=== PATIENT | female | born 1930 | race Caucasian/White ===

== ENCOUNTER 2018-09-08 06:04 | Emergency (ER) | payer OTHER ==
--- OUTSIDE RECORDS SUMMARY | 2018-09-08 06:10 | XMS REPORT | Clinical Summary ---
:1930 Author Organization [facility] Address [address] [place] [address] Care Team Providers Name Role Phone Anthony Estrella Primary Care Provider Allergies Active Allergy Reactions Severity Noted Date Comments Allopurinol Analogues 05/26/2018 Ciprofloxacin 05/25/2018 Propoxyphene N-Acetaminophen 05/25/2018 Zvqluibkkct-Sidyavfi-Ljafvryod 05/25/2018 Levofloxacin 05/25/2018 Penicillins Rash Low 05/25/2018 Medications Medication Sig Dispensed Refills Start End Date Status Date atorvastatin Take 20 mg by 0 Active (LIPITOR) 20 MG mouth nightly. tablet donepezil (ARICEPT) Take 10 mg by 0 Active 10 MG tablet mouth nightly. cycloSPORINE Place 1 drop into 0 Active (RESTASIS) 0.05 % both eyes 2 (two) ophthalmic emulsion times daily. febuxostat 40 mg Take 40 mg by 0 Active tablet mouth daily. pantoprazole Take 40 mg by 0 Active (PROTONIX) 40 MG mouth daily. tablet cholecalciferol, Take 5,000 Units 0 Active vitamin D3, 5,000 by mouth daily. unit Tab sucralfate Take 1 g by mouth 0 Active (CARAFATE) 1 gram 3 (three) times tablet daily. levothyroxine Take 50 mcg by 0 Active (SYNTHROID, mouth Every LEVOTHROID) 50 MCG morning on an tablet empty stomach. acetaminophen Take 650 mg by 0 Active (TYLENOL) 325 MG mouth every 8 tablet (eight) hours as needed for Pain. apixaban (ELIQUIS Take 2.5 mg by 0 Active ORAL) mouth 2 (two) times daily. escitalopram oxalate Take 20 mg by 0 Active (LEXAPRO) 20 MG mouth nightly. tablet ferrous sulfate 325 Take 325 mg by 0 Active (65 FE) MG tablet mouth 3 (three) times daily with meals. acetaminophen-codein Take 1 tablet by 0 Active e (TYLENOL #3) mouth as needed 300-30 mg per tablet for Pain. aztreonam (AZACTAM) Inject 1 g 0 Active IVPB in 100 mL intravenously 8 every 8 (eight) hours. dicyclomine (BENTYL) Take 20 mg by 0 05/28/20 Discontinued 20 mg tablet mouth 3 (three) 18 times daily. ondansetron (ZOFRAN) Take 4 mg by 0 05/28/20 Discontinued 4 MG tablet mouth 4 (four) 18 times daily as needed for Nausea. loperamide (IMODIUM) Take 2 mg by 0 05/28/20 Discontinued 2 mg capsule mouth as needed 18 for Diarrhea. diphenhydrAMINE Take 25 mg by 0 05/28/20 Discontinued (BENADRYL) 25 mg mouth as needed 18 tablet for Sleep. diphenoxylate-atropi Take 1 tablet by 0 05/28/20 Discontinued ne (LOMOTIL) mouth as needed 18 2.5-0.025 mg per for Diarrhea. tablet traMADol (ULTRAM) 50 Take 1 tablet (50 30 tablet 0 06/07/20 mg tablet mg total) by 8 18 mouth every 6 (six) hours as needed for up to 10 days. Max Daily Amount: 200 mg Active Problems Problem Noted Date Hydronephrosis 05/25/2018 Kidney stone 05/25/2018 Acute renal failure (ARF) 05/25/2018 Encounters Date Type Specialty Care Team Description 05/25/2018 - Hospital Encounter General Internal Carmencita Crockett Acute renal failure, unspecified acute renal failure type (HCC); 05/28/2018 Medicine MD Trevor Kidney stone 05/25/2018 Orders Only Jaycob Andrade RN after 09/07/2017 Social History Tobacco Use Types Packs/Day Years Used Date Never Assessed Sex Assigned at Date Recorded Not on file Job Start Date Occupation Industry Not on file Not on file Not on file Travel History Travel Start Travel End No recent travel history available. Last Filed Vital Signs Vital Sign Reading Time Taken Blood Pressure 112/56 05/28/2018 3:52 PM CDT Pulse 68 05/28/2018 3:52 PM CDT Temperature 36.2 C (97.2 F) 05/28/2018 3:52 PM CDT Respiratory Rate 05/28/2018 3:52 PM CDT Oxygen Saturation 93% 05/28/2018 3:52 PM CDT Inhaled Oxygen Concentration - - Weight 81.5 kg (179 lb 9.6 oz) 05/25/2018 11:00 PM CDT Height - - Body Mass Index - - Plan of Treatment Not on file Procedures Procedure Name Priority Date/Time Associated Comments Diagnosis RHYTHM STRIP - SCAN 05/31/2018 2:55 PM CDT TRANSFUSION SERVICE 05/28/2018 5:54 REPORT - SCAN PM CDT XR CHEST 1 VIEW Routine 05/28/2018 9:35 Results for this PORTABLE/BEDSIDE AM CDT procedure are in the results section. CBC W/PLT COUNT & AUTO Routine 05/28/2018 5:36 Results for this DIFFERENTIAL AM CDT procedure are in the results section. COMPREHENSIVE Routine 05/28/2018 5:36 Results for this METABOLIC PANEL AM CDT procedure are in the results section. CBC W/PLT COUNT & AUTO Routine 05/28/2018 5:36 Results for this DIFFERENTIAL AM CDT procedure are in the results section. PHOSPHORUS Routine 05/28/2018 5:36 Results for this AM CDT procedure are in the results section. MAGNESIUM Routine 05/28/2018 5:36 Results for this AM CDT procedure are in the results section. PT/APTT Routine 05/28/2018 5:36 Results for this AM CDT procedure are in the results section. PREPARE PLASMA Routine 05/27/2018 11:54 Results for this PM CDT procedure are in the results section. TRANSFUSION SERVICE 05/27/2018 5:55 REPORT - SCAN PM CDT CBC W/PLT COUNT & AUTO Routine 05/27/2018 4:55 Results for this DIFFERENTIAL AM CDT procedure are in the results section. COMPREHENSIVE Routine 05/27/2018 4:55 Results for this METABOLIC PANEL AM CDT procedure are in the results section. CBC W/PLT COUNT & AUTO Routine 05/27/2018 4:55 Results for this DIFFERENTIAL AM CDT procedure are in the results section. PHOSPHORUS Routine 05/27/2018 4:55 Results for this AM CDT procedure are in the results section. MAGNESIUM Routine 05/27/2018 4:55 Results for this AM CDT procedure are in the results section. PROTHROMBIN TIME/INR Routine 05/27/2018 4:55 Results for this AM CDT procedure are in the results section. PT/APTT Routine 05/27/2018 4:55 Results for this AM CDT procedure are in the results section. OCCULT BLOOD, STOOL Routine 05/26/2018 6:02 Results for this PM CDT procedure are in the results section. PROTHROMBIN TIME/INR Routine 05/26/2018 4:23 Results for this PM CDT procedure are in the results section. TRANSFUSE PLASMA Routine 05/26/2018 9:14 AM CDT TROPONIN I Routine 05/26/2018 3:53 Results for this AM CDT procedure are in the results section. CBC W/PLT COUNT & AUTO Routine 05/26/2018 3:18 Results for this DIFFERENTIAL AM CDT procedure are in the results section. TYPE AND SCREEN STAT 05/26/2018 3:18 Results for this AM CDT procedure are in the results section. B-TYPE NATRIURETIC Routine 05/26/2018 3:18 Results for this FACTOR (BNP) AM CDT procedure are in the results section. CBC W/PLT COUNT & AUTO Routine 05/26/2018 3:18 Results for this DIFFERENTIAL AM CDT procedure are in the results section. URINALYSIS W/ Routine 05/26/2018 1:50 Results for this MICROSCOPIC AM CDT procedure are in the results section. PHOSPHORUS Routine 05/26/2018 1:48 Results for this AM CDT procedure are in the results section. MAGNESIUM Routine 05/26/2018 1:48 Results for this AM CDT procedure are in the results section. PT/APTT Routine 05/26/2018 1:48 Results for this AM CDT procedure are in the results section. BASIC METABOLIC PANEL Routine 05/26/2018 1:48 Results for this (7) AM CDT procedure are in the results section. URINE CULTURE Routine 05/26/2018 1:08 Results for this AM CDT procedure are in the results section. after 09/07/2017 Results RHYTHM STRIP - SCAN (05/31/2018 2:55 PM CDT) Narrative Performed At TRANSFUSION SERVICE REPORT - SCAN (05/28/2018 5:54 PM CDT)Only the most recent of2 resultswithin the time period is included. Narrative Performed At XR chest 1 view portable / bedside (05/28/2018 9:35 AM CDT) Narrative Performed At FINAL REPORT [facility] Comparison: 03/31/2014 TECHNIQUE: Single view of the chest FINDINGS: Lung volumes are low. Bibasilar densities may represent atelectasis. No gross new lung parenchymal changes. Cardiac silhouette is magnified by technique. Left-sided pacing device again noted. Signed: Luciana Squires MD Report Verified Date/Time:05/28/2018 12:17:09 Reading Location: [facility] Radiology Reading Room Procedure Note Interface, External Ris In - 05/28/2018 12:19 PM CDT FINAL REPORT Comparison: 03/31/2014 TECHNIQUE: Single view of the chest FINDINGS: Lung volumes are low. Bibasilar densities may represent atelectasis. No gross new lung parenchymal changes. Cardiac silhouette is magnified by technique. Left-sided pacing device again noted. Signed: Luciana Squires MD Report Verified Date/Time: 05/28/2018 12:17:09 Reading Location: [facility] Radiology Reading Room Performing Organization Address City/[facility]/Zipcode Phone Number RIS PT/aPTT (05/28/2018 5:36 AM CDT)Only the most recent of3 resultswithin the time period is included. Protime 13.2 (H) 9.3 - 12.0 sec [facility] INR 1.2 <=5.9 [facility] PTT 37.0 (H) 23.0 - 35.0 sec [facility] Specimen Blood Narrative Performed At [facility] RECOMMENDED COUMADIN/WARFARIN INR THERAPY RANGES STANDARD DOSE: 2.0 - 3.0 Includes: PROPHYLAXIS for venous thrombosis, systemic embolization; TREATMENT for venous thrombosis and/or pulmonary embolus. HIGH RISK: Target INR is 2.5-3.5 for patients with mechanical heart valves. Final Information (Auto Output) Final Information (Auto Output) Final Information (Auto Output) Performing Organization Address City/[facility]/Zipcode Phone Number [facility] [address], [place] [phone] CBC with platelet count + automated diff (05/28/2018 5:36 AM CDT)Only the most recent of3 resultswithin the time period is included. WBC 8.0 4.0 - 10.0 K/L [facility] RBC 3.56 (L) 4.00 - 5.00 M/L [facility] Hemoglobin 11.5 (L) 12.0 - 15.0 GM/DL [facility] Hematocrit 34.5 (L) 36.0 - 45.0 % [facility] MCV 96.8 82.0 - 99.0 fL [facility] MCH 32.2 27.0 - 33.0 pg [facility] MCHC 33.3 32.0 - 36.0 GM/DL [facility] RDW 14.6 (H) 10.3 - 14.2 % [facility] Platelets 103 (L) 150 - 430 K/CU MM [facility] MPV 11.0 (H) 6.5 - 10.5 fL [facility] nRBC 0 0 - 0 /100 WBC [facility] % Neutros 70 % [facility] % Lymphs 15 % [facility] % Monos 12 % [facility] % Eos 2 % [facility] % Baso 1 % [facility] # Neutros 5.60 1.80 - 8.00 K/L [facility] # Lymphs 1.20 (L) 1.48 - 4.50 K/L [facility] # Monos 1.00 0.00 - 1.30 K/L [facility] # Eos 0.20 0.00 - 0.50 K/L [facility] # Baso 0.00 0.00 - 0.20 K/L [facility] Specimen Blood Performing Organization Address City/State/Zipcode Phone Number [facility] [address] [place] [address] [phone] Phosphorus (05/28/2018 5:36 AM CDT)Only the most recent of3 resultswithin the time period is included. Phosphorus 1.7 (L) 2.5 - 4.5 mg/dL [facility] Specimen Blood Performing Organization Address City/[facility]/Zipcode Phone Number [facility] [address], [place] [address] [phone] Magnesium (05/28/2018 5:36 AM CDT)Only the most recent of3 resultswithin the time period is included. Magnesium 1.3 (L) 1.5 - 3.0 mg/dL [facility] Specimen Blood Performing Organization Address [facility] Phone Number [facility] [address], [place] [address] [phone] Comprehensive metabolic panel (05/28/2018 5:36 AM CDT)Only the most recent of2 resultswithin the time period is included. Protein, Total 4.8 (L) 6.0 - 8.5 gm/dL [facility] Albumin 2.5 (L) 3.5 - 5.0 g/dL [facility] Alkaline Phosphatase 129 (H) 30 - 115 U/L [facility] Total Bilirubin 0.5 0.1 - 1.2 mg/dL [facility] Sodium 144 135 - 148 meq/L [facility] Potassium 3.3 (L) 3.6 - 5.5 meq/L [facility] Chloride 120 (H) 98 - 106 meq/L [facility] CO2 16 (L) 20 - 29 meq/L [facility] BUN 26 10 - 26 mg/dL [facility] Creatinine 0.97 0.50 - 1.20 mg/dL [facility] Glucose 98 70 - 110 mg/dL [facility] Calcium 9.6 8.5 - 10.5 mg/dL [facility] AST 27 5 - 40 U/L [facility] ALT 33 5 - 50 U/L [facility] EGFR 54Comment: ESTIMATED GFR mL/min/1.73 sq m [facility] IS NOT ACCURATE CREATININE CLEARANCE IN PREDICTING GLOMERULAR FILTRATION RATE. ESTIMATED GFR IS NOT APPLICABLE FOR DIALYSIS PATIENTS. Specimen Blood Performing Organization Address [facility] Phone Number [facility] [address], [place] [phone] Prepare plasma (05/27/2018 11:54 PM CDT) Unit ABO A Pos [place] UNIT NUMBER [id number] [place] Status TRANSFUSED [place] Blood Bank Product FFP [place] PRODUCT CODE [id number] [place] Specimen Blood Performing Organization Address City/[facility]ode Phone Number [facility] [place] Prothrombin time/INR (05/27/2018 4:55 AM CDT)Only the most recent of2 resultswithin the time period is included. Protime 20.5 (H) 9.3 - 12.0 seconds [facility] INR 1.9 <=5.9 [facility] Specimen Blood Narrative Performed At [facility] RECOMMENDED COUMADIN/WARFARIN INR THERAPY RANGES STANDARD DOSE: 2.0 - 3.0 Includes: PROPHYLAXIS for venous thrombosis, systemic embolization; TREATMENT for venous thrombosis and/or pulmonary embolus. HIGH RISK: Target INR is 2.5-3.5 for patients with mechanical heart valves. Performing Organization Address City/[facility] Phone Number [facility] [address] [place] [address] [phone] Occult blood, stool (05/26/2018 6:02 PM CDT) Occult blood Positive (A) Negative [facility] Specimen Stool - Per Rectum Performing Organization Address [facility]Former[facility] Number [address] [phone] Transfuse plasma (05/26/2018 9:14 AM CDT)Only the most recent of2 resultswithin the time period is included.Troponin I (05/26/2018 3:53 AM CDT) Troponin I 0.23 (HH) 0.00 - 0.15 ng/mL [facility] Specimen Blood - Line, Venous Narrative Performed At [facility] Troponin I (TnI) levels must be interpreted in the context of the presenting symptoms and the clinical findings. Elevated TnI levels indicate myocardial damage, but are not specific for ischemic heart disease. Elevated TnI levels are seen in patients with other cardiac conditions (including myocarditis and congestive heart failure), and slight TnI elevations occur in patients with other conditions, including sepsis, renal failure, acidosis, acute neurological disease, and persistent tachyarrhythmia. Performing Organization Address [facility] Phone Number [facility] [address], [place] [phone] Type and screen (05/26/2018 3:18 AM CDT) Ab Scrn NEGATIVE [facility] ABO Grouping A [facility] Rh Factor POS [facility] Specimen Blood - Line, Venous Performing Organization Address City/[facility] Phone Number [facility] [address] [place], [place] [phone] [facility] B-type Natriuretic Factor (BNP) (05/26/2018 3:18 AM CDT) BNP 736 (H) 0 - 100 pg/mL [facility] Specimen Blood - Line, Venous Performing Organization Address [facility] Phone Number [facility] [address], [place] [address] [phone] Urinalysis w/ Microscopic (05/26/2018 1:50 AM CDT) Color, UA Yellow [facility] Clarity, UA Slightly Cloudy [facility] Specific [place], UA 1.015 1.001 - 1.035 [facility] pH, UA 8.0 5.0 - 8.0 [facility] Protein, UA 100 mg/dL (A) Negative [facility] Glucose, UA Negative Negative [facility] Ketones, UA Trace (A) Negative [facility] Bilirubin, UA Positive (A) Negative [facility] Blood, UA Large (A) Negative [facility] Nitrite, UA Positive (A) Negative [facility] Leukocytes, UA Large (A) Negative [facility] Urobilinogen, UA 1.0 0.2 - 1.0 mg/dL [facility] Bacteria, UA Many [facility] RBC, UA >100 /HPF [facility] WBC, UA 50-100 /HPF [facility] SQUAMOUS EPITHELIAL 5-10 /HPF [facility] Specimen Source [facility] Specimen Urine - Urine, Don Performing Organization Address [facility] Phone Number [facility] [address], [place] [phone] Basic metabolic panel (05/26/2018 1:48 AM CDT) Sodium 145 135 - 148 meq/L [facility] Potassium 4.4Comment: Specimen moderately 3.6 - 5.5 meq/L [facility] hemolyzed Chloride 118 (H) 98 - 106 meq/L [facility] CO2 15 (L) 20 - 29 meq/L [facility] BUN 51 (H) 10 - 26 mg/dL [facility] Creatinine 1.37 (H)Comment: Specimen 0.50 - 1.20 mg/dL [facility] moderately hemolyzed Glucose 106 70 - 110 mg/dL [facility] Calcium 11.8 (H) 8.5 - 10.5 mg/dL [facility] EGFR 36Comment: ESTIMATED GFR IS NOT mL/min/1.73 sq m [facility] ACCURATE CREATININE CLEARANCE IN PREDICTING GLOMERULAR FILTRATION RATE. ESTIMATED GFR IS NOT APPLICABLE FOR DIALYSIS PATIENTS. Specimen Blood - Arm, Left Performing Organization Address [facility] Phone Number [facility] [address], [place] [phone] Urine culture (05/26/2018 1:08 AM CDT) Result (A) [facility] Specimen Urine - Urine, Clean Catch Organism Antibiotic Method Susceptibility Proteus mirabilis Ampicillin + Sulbactam <=2: Susceptible Proteus mirabilis Cefepime <=1: Susceptible Proteus mirabilis Cefoxitin <=4: Susceptible Proteus mirabilis Ceftriaxone <=1: Susceptible Proteus mirabilis Gentamicin <=1: Susceptible Proteus mirabilis Levofloxacin <=0.12: Susceptible Proteus mirabilis Meropenem 1: Susceptible Proteus mirabilis Nitrofurantoin 128: Resistant Proteus mirabilis Piperacillin + Tazobactam <=4: Susceptible Proteus mirabilis Tetracycline >=16: Resistant Proteus mirabilis Tobramycin <=1: Susceptible Proteus mirabilis Trimethoprim + Sulfamethoxazole <=20: Susceptible Performing Organization Address [facility] Phone Number [facility] [address], [place] [phone] after 09/07/2017 Insurance Payer Benefit Plan / Group Subscriber ID Type Phone Address MEDICARE MEDICARE A B xxxxxxxxxx Medicare MCR [employer] SENIOR SUPPLEMENTAL xxxxxxxxxx SUPPLEMENT/INDIVIDUAL (Home) [place] [address] Advance Directives Patient has advance care planning documents, and code status on file. For more information, please contact:[address] [phone] Code Status Date Activated Date Inactivated Comments Full Code 05/26/2018 12:08 AM 05/28/2018 9:10 PM This code status was determined by: Patient
--- OUTSIDE RECORDS SUMMARY | 2018-09-08 06:10 | XMS REPORT ---
:1930 Author Organization [facility] Address [address] [place] [address] [address] [place] [address] Care Team Providers Name Role Phone GAUDENCIO CONNELLY Unavailable Unavailable Problems This patient has no known problems. Allergies, Adverse Reactions, Alerts This patient has no known allergies or adverse reactions. Medications This patient has no known medications. Results Test Description Test Time Test Comments Text Results Atomic Results Result Comments URINE CULTURE 2018-05-29 08:41:00 Test Item Value Reference Range Comments CULTURE (BEAKER) (test jcud=5907) PROTEUS MIRABILIS >100,000 col/mL Proteus mirabilis Amikacin (test code=1) Ampicillin + Sulbactam (test code=6) Aztreonam (test code=32) Cefazolin (test code=9) Cefepime (test code=51) Cefoxitin (test code=68) Ceftazidime (test code=27) Ceftriaxone (test code=52) Ertapenem (test code=38) Gentamicin (test code=18) Levofloxacin (test code=22) Meropenem (test code=34) Nitrofurantoin (test code=23) Piperacillin + Tazobactam (test code=29) Tetracycline (test code=2) Tigecycline (test atmo=249) Tobramycin (test code=25) Trimethoprim + Sulfamethoxazole (test code=47) RAD, CHEST, 1 VIEW, NON [id number] 12:17:00Reason for exam:-> pneumoniaShould this be performed at the bedside?->YesFINAL REPORT Comparison: 03/31/2014 TECHNIQUE: Single view of the chest FINDINGS : Lung volumes are low. Bibasilar densities may represent atelectasis. No gross new lung parenchymal changes. Cardiac silhouette is magnified by technique. Left -sided pacing device again noted. Signed: Luciana Squires MDReport Verified Date/ Time: 05/28/2018 12:17:09 Reading Location: [facility] Radiology Reading Room COMPREHENSIVE METABOLIC [id number] 06:24:00 Test Item Value Reference Range Comments TOTAL PROTEIN (BEAKER) 4.8 gm/dL 6.0-8.5 (test fbvo=283) ALBUMIN (BEAKER) (test 2.5 g/dL 3.5-5.0 vbaf=3502) ALKALINE PHOSPHATASE 129 U/L 30-115 (BEAKER) (test loqj=422) BILIRUBIN TOTAL (BEAKER) 0.5 mg/dL 0.1-1.2 (test yasr=627) SODIUM (BEAKER) (test 144 meq/L 135-148 gtyn=274) POTASSIUM (BEAKER) (test 3.3 meq/L 3.6-5.5 vdrb=444) CHLORIDE (BEAKER) (test 120 meq/L 98-106 afer=743) CO2 (BEAKER) (test 16 meq/L 20-29 fijc=420) BLOOD UREA NITROGEN 26 mg/dL 10-26 (BEAKER) (test keeq=541) CREATININE (BEAKER) (test 0.97 mg/dL 0.50-1.20 yrew=216) GLUCOSE RANDOM (BEAKER) 98 mg/dL 70-110 (test vhvg=181) CALCIUM (BEAKER) (test 9.6 mg/dL 8.5-10.5 pays=041) AST (SGOT) (BEAKER) (test 27 U/L 5-40 pvre=453) ALT (SGPT) (BEAKER) (test 33 U/L 5-50 vora=369) EGFR (BEAKER) (test 54 mL/min/1.73 sq m ESTIMATED GFR IS NOT tndf=7525) ACCURATE CREATININE CLEARANCE IN PREDICTING GLOMERULAR FILTRATION RATE. ESTIMATED GFR IS NOT APPLICABLE FOR DIALYSIS PATIENTS. [id number] 06:15:00 Test Item Value Reference Range Comments PHOSPHORUS (BEAKER) (test kivm=143) 1.7 mg/dL 2.5-4.5 [id number] 06:10:00 Test Item Value Reference Range Comments MAGNESIUM (BEAKER) (test rien=683) 1.3 mg/dL 1.5-3.0 [id number] 06:00:00 Test Item Value Reference Range Comments PROTIME (BEAKER) (test hodz=987) 13.2 sec 9.3-12.0 INR (BEAKER) (test awsj=895) 1.2 <=5.9 PARTIAL THROMBOPLASTIN TIME (BEAKER) (test 37.0 sec 23.0-35.0 lify=037) RECOMMENDED COUMADIN/WARFARIN INR THERAPY RANGESSTANDARD DOSE: 2.0 - 3.0 Includes: PROPHYLAXIS forvenous thrombosis, systemic embolization; TREATMENT for venous thrombosis and/or pulmonary embolus.HIGH RISK: Target INR is 2.5-3.5 for patients with mechanical heart valves.Final Information (Auto Output)Final Information (Auto Output)Final Information (Auto Output)CBC W/PLT COUNT & AUTO [id number] 05:55:00 Test Item Value Reference Range Comments WHITE BLOOD CELL COUNT (BEAKER) (test ctxh=579) 8.0 K/ L 4.0-10.0 RED BLOOD CELL COUNT (BEAKER) (test bwbt=974) 3.56 M/ L 4.00-5.00 HEMOGLOBIN (BEAKER) (test dooy=542) 11.5 GM/DL 12.0-15.0 HEMATOCRIT (BEAKER) (test kbxl=942) 34.5 % 36.0-45.0 MEAN CORPUSCULAR VOLUME (BEAKER) (test tkml=539) 96.8 fL 82.0-99.0 MEAN CORPUSCULAR HEMOGLOBIN (BEAKER) (test 32.2 pg 27.0-33.0 liyo=134) MEAN CORPUSCULAR HEMOGLOBIN CONC (BEAKER) (test 33.3 GM/DL 32.0-36.0 jtwp=568) RED CELL DISTRIBUTION WIDTH (BEAKER) (test 14.6 % 10.3-14.2 ceyn=347) PLATELET COUNT (BEAKER) (test hgve=428) 103 K/CU MM 150-430 MEAN PLATELET VOLUME (BEAKER) (test qzpn=876) 11.0 fL 6.5-10.5 NUCLEATED RED BLOOD CELLS (BEAKER) (test 0 /100 WBC 0-0 dwkb=867) NEUTROPHILS RELATIVE PERCENT (BEAKER) (test 70 % aupo=948) LYMPHOCYTES RELATIVE PERCENT (BEAKER) (test 15 % zica=524) MONOCYTES RELATIVE PERCENT (BEAKER) (test 12 % pboj=095) EOSINOPHILS RELATIVE PERCENT (BEAKER) (test 2 % jtzh=191) BASOPHILS RELATIVE PERCENT (BEAKER) (test 1 % poxj=969) NEUTROPHILS ABSOLUTE COUNT (BEAKER) (test 5.60 K/ L 1.80-8.00 zdqx=461) LYMPHOCYTES ABSOLUTE COUNT (BEAKER) (test 1.20 K/ L 1.48-4.50 zwbk=640) MONOCYTES ABSOLUTE COUNT (BEAKER) (test 1.00 K/ L 0.00-1.30 jugz=000) EOSINOPHILS ABSOLUTE COUNT (BEAKER) (test 0.20 K/ L 0.00-0.50 ihiy=826) BASOPHILS ABSOLUTE COUNT (BEAKER) (test 0.00 K/ L 0.00-0.20 akow=198) [id number] 06:06:00 Test Item Value Reference Range Comments PHOSPHORUS (BEAKER) (test 1.3 mg/dL 2.5-4.5 Specimen slightly hemolyzed dfdx=459) [id number] 05:52:00 Test Item Value Reference Range Comments PROTIME (BEAKER) (test niou=520) 20.5 seconds 9.3-12.0 INR (BEAKER) (test raju=694) 1.9 <=5.9 PARTIAL THROMBOPLASTIN TIME (BEAKER) (test 36.9 seconds 23.0-35.0 cihv=785) RECOMMENDED COUMADIN/WARFARIN INR THERAPY RANGESSTANDARD DOSE: 2.0 - 3.0 Includes: PROPHYLAXIS forvenous thrombosis, systemic embolization; TREATMENT for venous thrombosis and/or pulmonary embolus.HIGH RISK: Target INR is 2.5-3.5 for patients with mechanical heart valves.PROTHROMBIN [id number] 05:52: 00 Test Item Value Reference Range Comments PROTIME (BEAKER) (test ardz=720) 20.5 seconds 9.3-12.0 INR (BEAKER) (test teet=469) 1.9 <=5.9 RECOMMENDED COUMADIN/WARFARIN INR THERAPY RANGESSTANDARD DOSE: 2.0 - 3.0 Includes: PROPHYLAXIS forvenous thrombosis, systemic embolization; TREATMENT for venous thrombosis and/or pulmonary embolus.HIGH RISK: Target INR is 2.5-3.5 for patients with mechanical heart valves.COMPREHENSIVE METABOLIC [id number] 05:34:00 Test Item Value Reference Range Comments TOTAL PROTEIN (BEAKER) 5.8 gm/dL 6.0-8.5 Specimen slightly (test fkst=972) hemolyzed ALBUMIN (BEAKER) (test 3.0 g/dL 3.5-5.0 Specimen slightly kvng=6029) hemolyzed ALKALINE PHOSPHATASE 155 U/L 30-115 (BEAKER) (test docx=713) BILIRUBIN TOTAL (BEAKER) 0.5 mg/dL 0.1-1.2 Specimen slightly (test oiff=850) hemolyzed SODIUM (BEAKER) (test 147 meq/L 135-148 blgx=612) POTASSIUM (BEAKER) (test 3.1 meq/L 3.6-5.5 Specimen slightly udmw=154) hemolyzed CHLORIDE (BEAKER) (test 118 meq/L 98-106 opou=059) CO2 (BEAKER) (test 18 meq/L 20-29 mmyn=494) BLOOD UREA NITROGEN 35 mg/dL 10-26 (BEAKER) (test wjyz=542) CREATININE (BEAKER) (test 1.09 mg/dL 0.50-1.20 Specimen slightly tgnz=225) hemolyzed GLUCOSE RANDOM (BEAKER) 99 mg/dL 70-110 (test dsjb=522) CALCIUM (BEAKER) (test 11.0 mg/dL 8.5-10.5 ffsm=838) AST (SGOT) (BEAKER) (test 37 U/L 5-40 Specimen slightly njcc=434) hemolyzed ALT (SGPT) (BEAKER) (test 51 U/L 5-50 Specimen slightly tcdi=822) hemolyzed EGFR (BEAKER) (test 47 mL/min/1.73 sq m ESTIMATED GFR IS NOT stsl=1675) ACCURATE CREATININE CLEARANCE IN PREDICTING GLOMERULAR FILTRATION RATE. ESTIMATED GFR IS NOT APPLICABLE FOR DIALYSIS PATIENTS. [id number] 05:25:00 Test Item Value Reference Range Comments MAGNESIUM (BEAKER) (test 1.6 mg/dL 1.5-3.0 Specimen slightly hemolyzed cfjx=922) CBC W/PLT COUNT & AUTO [id number] 05:13:00 Test Item Value Reference Range Comments WHITE BLOOD CELL COUNT (BEAKER) (test tspg=976) 12.9 K/ L 4.0-10.0 RED BLOOD CELL COUNT (BEAKER) (test cene=506) 4.03 M/ L 4.00-5.00 HEMOGLOBIN (BEAKER) (test zmhz=569) 12.9 GM/DL 12.0-15.0 HEMATOCRIT (BEAKER) (test lfjp=441) 38.8 % 36.0-45.0 MEAN CORPUSCULAR VOLUME (BEAKER) (test negn=486) 96.3 fL 82.0-99.0 MEAN CORPUSCULAR HEMOGLOBIN (BEAKER) (test 31.9 pg 27.0-33.0 hjfe=210) MEAN CORPUSCULAR HEMOGLOBIN CONC (BEAKER) (test 33.2 GM/DL 32.0-36.0 utnj=318) RED CELL DISTRIBUTION WIDTH (BEAKER) (test 14.5 % 10.3-14.2 rszc=258) PLATELET COUNT (BEAKER) (test mcat=195) 164 K/CU MM 150-430 MEAN PLATELET VOLUME (BEAKER) (test xrqw=918) 11.5 fL 6.5-10.5 NUCLEATED RED BLOOD CELLS (BEAKER) (test 0 /100 WBC 0-0 klon=850) NEUTROPHILS RELATIVE PERCENT (BEAKER) (test 79 % rnqf=635) LYMPHOCYTES RELATIVE PERCENT (BEAKER) (test 9 % kdac=413) MONOCYTES RELATIVE PERCENT (BEAKER) (test 10 % eahu=442) EOSINOPHILS RELATIVE PERCENT (BEAKER) (test 1 % vezm=517) BASOPHILS RELATIVE PERCENT (BEAKER) (test 0 % lacw=625) NEUTROPHILS ABSOLUTE COUNT (BEAKER) (test 10.20 K/ L 1.80-8.00 ifne=718) LYMPHOCYTES ABSOLUTE COUNT (BEAKER) (test 1.20 K/ L 1.48-4.50 swvy=237) MONOCYTES ABSOLUTE COUNT (BEAKER) (test 1.30 K/ L 0.00-1.30 qtaa=140) EOSINOPHILS ABSOLUTE COUNT (BEAKER) (test 0.10 K/ L 0.00-0.50 cxto=323) BASOPHILS ABSOLUTE COUNT (BEAKER) (test 0.00 K/ L 0.00-0.20 ztjt=839) OCCULT BLOOD, [id number] 18:13:00 Test Item Value Reference Range Comments FECAL OCCULT BLOOD (BEAKER) (test svdw=346) Positive Negative PROTHROMBIN [id number] 16:59:00 Test Item Value Reference Range Comments PROTIME (BEAKER) (test fxxj=823) 70.5 sec 9.3-12.0 INR (BEAKER) (test ntum=104) 7.2 <=5.9 RECOMMENDED COUMADIN/WARFARIN INR THERAPY RANGESSTANDARD DOSE: 2.0 - 3.0 Includes: PROPHYLAXIS forvenous thrombosis, systemic embolization; TREATMENT for venous thrombosis and/or pulmonary embolus.HIGH RISK: Target INR is 2.5-3.5 for patients with mechanical heart valves.Final Information (Auto Output)Final Information (Auto Output)TROPONIN [id number] 05:46:00 Test Item Value Reference Range Comments TROPONIN I (BEAKER) (test ctlf=485) 0.23 ng/mL 0.00-0.15 Troponin I (TnI) levels must be interpreted [...] failure, acidosis, acute neurological disease, and persistent tachyarrhythmia.B-TYPE NATRIURETIC FACTOR (BNP) 05:13:00 Test Item Value Reference Range Comments B-TYPE NATRIURETIC PEPTIDE (BEAKER) (test 736 pg/mL 0-100 yhsm=071) CBC W/PLT COUNT & AUTO [id number] 04:08:00 Test Item Value Reference Range Comments WHITE BLOOD CELL COUNT (BEAKER) (test usnq=472) 12.3 K/ L 4.0-10.0 RED BLOOD CELL COUNT (BEAKER) (test pdzj=303) 4.41 M/ L 4.00-5.00 HEMOGLOBIN (BEAKER) (test joyi=614) 13.0 GM/DL 12.0-15.0 HEMATOCRIT (BEAKER) (test obwz=917) 42.0 % 36.0-45.0 MEAN CORPUSCULAR VOLUME (BEAKER) (test gpbu=320) 95.2 fL 82.0-99.0 MEAN CORPUSCULAR HEMOGLOBIN (BEAKER) (test 29.5 pg 27.0-33.0 pxeb=715) MEAN CORPUSCULAR HEMOGLOBIN CONC (BEAKER) (test 31.0 GM/DL 32.0-36.0 naex=859) RED CELL DISTRIBUTION WIDTH (BEAKER) (test 13.6 % 10.3-14.2 khrw=998) PLATELET COUNT (BEAKER) (test vioq=665) 181 K/CU MM 150-430 MEAN PLATELET VOLUME (BEAKER) (test ksiq=435) 12.5 fL 6.5-10.5 NEUTROPHILS RELATIVE PERCENT (BEAKER) (test 79 % catm=609) LYMPHOCYTES RELATIVE PERCENT (BEAKER) (test 10 % vxuk=341) MONOCYTES RELATIVE PERCENT (BEAKER) (test 11 % gyvn=652) EOSINOPHILS RELATIVE PERCENT (BEAKER) (test 0 % vavh=464) BASOPHILS RELATIVE PERCENT (BEAKER) (test 0 % fbkk=698) NEUTROPHILS ABSOLUTE COUNT (BEAKER) (test 9.60 K/ L 1.80-8.00 hsgq=980) LYMPHOCYTES ABSOLUTE COUNT (BEAKER) (test 1.30 K/ L 1.48-4.50 dkfr=224) MONOCYTES ABSOLUTE COUNT (BEAKER) (test 1.30 K/ L 0.00-1.30 cjlp=381) EOSINOPHILS ABSOLUTE COUNT (BEAKER) (test 0.00 K/ L 0.00-0.50 ynzk=274) BASOPHILS ABSOLUTE COUNT (BEAKER) (test 0.00 K/ L 0.00-0.20 lfud=491) [id number] 02:35:00 Test Item Value Reference Range Comments PHOSPHORUS (BEAKER) (test 1.4 mg/dL 2.5-4.5 Specimen moderately hemolyzed sbcn=085) BASIC METABOLIC [id number] 02:34:00 Test Item Value Reference Range Comments SODIUM (BEAKER) (test 145 meq/L 135-148 zqme=876) POTASSIUM (BEAKER) (test 4.4 meq/L 3.6-5.5 Specimen moderately riqi=276) hemolyzed CHLORIDE (BEAKER) (test 118 meq/L 98-106 qhbk=243) CO2 (BEAKER) (test 15 meq/L 20-29 uybn=671) BLOOD UREA NITROGEN 51 mg/dL 10-26 (BEAKER) (test gdpq=027) CREATININE (BEAKER) (test 1.37 mg/dL 0.50-1.20 Specimen moderately dztj=399) hemolyzed GLUCOSE RANDOM (BEAKER) 106 mg/dL 70-110 (test ecvw=133) CALCIUM (BEAKER) (test 11.8 mg/dL 8.5-10.5 qvny=487) EGFR (BEAKER) (test 36 mL/min/1.73 sq m ESTIMATED GFR IS NOT pmel=5898) ACCURATE CREATININE CLEARANCE IN PREDICTING GLOMERULAR FILTRATION RATE. ESTIMATED GFR IS NOT APPLICABLE FOR DIALYSIS PATIENTS. [id number] 02:20:00 Test Item Value Reference Range Comments MAGNESIUM (BEAKER) (test 2.4 mg/dL 1.5-3.0 Specimen moderately hemolyzed gyny=510) [id number] 02:20:00 Test Item Value Reference Range Comments PROTIME (BEAKER) (test skqg=339) 76.0 sec 9.3-12.0 INR (BEAKER) (test rkeu=675) 7.8 <=5.9 PARTIAL THROMBOPLASTIN TIME (BEAKER) (test 63.2 sec 23.0-35.0 vzhn=939) RECOMMENDED COUMADIN/WARFARIN INR THERAPY RANGESSTANDARD DOSE: 2.0 - 3.0 Includes: PROPHYLAXIS forvenous thrombosis, systemic embolization; TREATMENT for venous thrombosis and/or pulmonary embolus.HIGH RISK: Target INR is 2.5-3.5 for patients with mechanical heart valves.Final Information (Auto Output)Final Information (Auto Output)Final Information (Auto Output)URINALYSIS W/ [id number] 02:19:00 Test Item Value Reference Range Comments COLOR (BEAKER) (test qbuh=902) Yellow CLARITY (BEAKER) (test ajwp=076) Slightly Cloudy SPECIFIC GRAVITY UA (BEAKER) (test qrzp=295) 1.015 1.001-1.035 PH UA (BEAKER) (test thbj=870) 8.0 5.0-8.0 PROTEIN UA (BEAKER) (test dvuh=877) 100 mg/dL Negative GLUCOSE UA (BEAKER) (test vest=631) Negative Negative KETONES UA (BEAKER) (test vnfh=185) Trace Negative BILIRUBIN UA (BEAKER) (test qlbj=855) Positive Negative BLOOD UA (BEAKER) (test rcat=037) Large Negative NITRITE UA (BEAKER) (test jhid=683) Positive Negative LEUKOCYTE ESTERASE UA (BEAKER) (test Large Negative fmfj=845) UROBILINOGEN UA (BEAKER) (test mcbo=395) 1.0 mg/dL 0.2-1.0 BACTERIA (BEAKER) (test ramk=378) Many RBC UA-MANUAL (BEAKER) (test xywg=2862) >100 /HPF WBC UA-MANUAL (BEAKER) (test owvk=3282) 50-100 /HPF SQUAMOUS EPITHELIAL MANUAL (BEAKER) (test 5-10 /HPF vopj=4121) SOURCE(BEAKER) (test kdam=8927)
--- NOTE | 2018-09-08 07:42 | EDPHYS ---
Physician Documentation [facility] Name: Sally Suárez Age: 88 yrs Sex: Female : 1930 Arrival Date: 09/08/2018 Time: 06:12 Bed 5 Private MD: ED Physician Amanuel Pedraza HPI: 09/08 06:16 This 88 yrs old Female presents to ER via EMS with complaints of pulled kb g-tube out. 06:16 half-way called 911 this morning because pt appeared to have pulled g-tube out. No kb bleeding from gastrostomy noted. half-way staff unable to find all of the pieces of the g-tube, unknown if part of g-tube in retained in abd. . Onset: The symptoms/episode began/occurred this morning. Severity of symptoms: At their worst the symptoms were mild in the emergency department the symptoms are unchanged. The patient has not experienced similar symptoms in the past. The patient has not recently seen a physician. Historical: - Allergies: 06:36 Allopurinol; jd3 06:36 Ciprofloxacin; jd3 06:36 Hydralazine; jd3 06:36 hydrochlorothiazide; jd3 06:36 PENICILLINS; jd3 06:36 reserpine; jd3 06:36 Darvon; jd3 06:36 Levaquin; jd3 - Home Meds: 06:36 levothyroxine 100 mcg tab 1 tab once daily [Active]; lorazepam 0.5 mg Oral tab 1 tab jd3 every 6 hours [Active]; sucralfate 1 gram Oral tab 1 tab three times a day [Active]; Metoprolol Tartrate 12.5 mg Oral 2 times per day [Active]; Uloric 40 mg oral tab 1 tab once daily [Active]; apixaban oral 2.5 mg oral 1 tab twice a day [Active]; escitalopram oxalate 20 mg oral tab 1 tab nightly [Active]; atorvastatin 20 mg oral tab 1 tab nightly [Active]; cyclosporine ophthalmic 0.05 % ophthalmic 1 mL every 12 hours for in both eyes [Active]; donepezil 10 mg oral tab 1 tab nightly [Active]; acetaminophen-codeine 300-30 mg Oral tab 1 tab every 6 hours [Active]; tramadol 50 mg Oral tab 1 tab every 6 hours [Active]; - PMHx: 06:36 Anemia; Atrial Fib; "cognitive communication deficit"; GERD; "chronic kidney disease"; jd3 Depression; Dementia; UTI; Anxiety; CHF; dysphagia; Hypertension; "heart failure"; Hyperlipidemia; Hypothyroidism; - PSHx: 06:36 G-tube placement; jd3 - Immunization history:: Adult Immunizations unknown. - Social history:: Smoking status: unknown. - Ebola Screening: : Patient negative for fever greater than or equal to 101.5 degrees Fahrenheit, and additional compatible Ebola Virus Disease symptoms. ROS: 06:16 Constitutional: Negative for fever, chills, and weight loss, Cardiovascular: Negative kb for chest pain, palpitations, and edema, Respiratory: Negative for shortness of breath, cough, wheezing, and pleuritic chest pain, Abdomen/GI: Negative for abdominal pain, nausea, vomiting, diarrhea, and constipation. Exam: 06:16 Constitutional: This is a well developed, well nourished patient who is awake, alert, kb and in no acute distress. Head/Face: Normocephalic, atraumatic. Chest/axilla: Normal chest wall appearance and motion. Nontender with no deformity. No lesions are appreciated. Cardiovascular: Regular rate and rhythm with a normal S1 and S2. No gallops, murmurs, or rubs. Normal PMI, no JVD. No pulse deficits. Respiratory: Lungs have equal breath sounds bilaterally, clear to auscultation and percussion. No rales, rhonchi or wheezes noted. No increased work of breathing, no retractions or nasal flaring. Abdomen/GI: Soft, non-tender, with normal bowel sounds. No distension or tympany. No guarding or rebound. No evidence of tenderness throughout. 06:16 Abdomen/GI: Inspection: gastrostomy noted to LUQ. Vital Signs: 06:36 BP 125 / 53; Pulse 74; Resp 19 S; Temp 97.8(O); Pulse Ox 97% on R/A; Weight 86.18 kg jd3 (R); Height 5 ft. 4 in. (162.56 cm) (R); Pain 0/10; 08:03 BP 107 / 66; Pulse 69; Resp 16 S; Pulse Ox 97% on R/A; jl7 06:36 Body Mass Index 32.61 (86.18 kg, 162.56 cm) jd3 Procedures: 07:05 G-tube placement: a 14 [place] catheter was placed, by the ED physician, Stephanie STREET. MDM: 06:12 Patient medically screened. 06:16 Data reviewed: vital signs, nurses notes. Data interpreted: Pulse oximetry: on room air kb is 98 %. Interpretation: normal. 07:41 Counseling: I had a detailed discussion with the patient and/or guardian regarding: the kb historical points, exam findings, and any diagnostic results supporting the discharge/admit diagnosis, radiology results, the need for outpatient follow up, a family practitioner, to return to the emergency department if symptoms worsen or persist or if there are any questions or concerns that arise at home. 09/08 06:15 Order name: Abdomen 1 View (KUB) XRAY kb 09/08 07:05 Order name: PEG Tube Check w/contrast kb Administered Medications: No medications were administered Disposition: 09/08/18 07:41 Discharged to Home. Impression: Gastrostomy status - tube replaced. - Condition is Stable. - Discharge Instructions: PEG Tube Home Guide, [id number]. - Medication Reconciliation Form, Thank You Letter, Antibiotic Education, Prescription Opioid Use form. - Follow up: Emergency Department; When: As needed; Reason: Worsening of condition. Follow up: Private Physician; When: 2 - 3 days; Reason: Recheck today's complaints, Continuance of care, Re-evaluation by your physician. Addendum: 09/10/2018 19:03 Co-signature as Attending Physician, Amanuel Pedraza MD. p marleny Signatures: Dispatcher [employer] EDWA Stephanie Zacarias, JAD RAILROAD INSPECTOR-Ckb Amanuel Pedraza MD MD pkl Leal, Jahala RN RN jl7 Jignesh Barba RN RN jd3 Corrections: (The following items were deleted from the chart) 09/08 08:16 07:41 09/08/2018 07:41 Discharged to Home. Impression: Gastrostomy status - tube jl7 replaced. Condition is Stable. Forms are Medication Reconciliation Form, Thank You Letter, Antibiotic Education, Prescription Opioid Use. Follow up: Emergency Department; When: As needed; Reason: Worsening of condition. Follow up: Private Physician; When: 2 - 3 days; Reason: Recheck today's complaints, Continuance of care, Re-evaluation by your physician. kb
--- NOTE | 2018-09-08 07:42 | ER ---
Nurse's Notes [facility] Name: Sally Suárez Age: 88 yrs Sex: Female : 1930 Arrival Date: 09/08/2018 Time: 06:12 Bed 5 Private MD: Diagnosis: Gastrostomy status-tube replaced Presentation: 09/08 06:12 Presenting complaint: EMS states: "we were called out for a G-tube displacement. we jd3 were given a part of the tube that looks like the top of it, but there is nothing there on her abdomen. they don't know if it broke off or what.". Transition of care: patient was received from another setting of care (long-term care facility), [facility]. Onset of symptoms was September 08, 2018. Risk Assessment: Do you want to hurt yourself or someone else? Patient reports no desire to harm self or others. Initial Sepsis Screen: Does the patient meet any 2 criteria? No. Patient's initial sepsis screen is negative. Does the patient have a suspected source of infection? No. Patient's initial sepsis screen is negative. Care prior to arrival: None. 06:12 Method Of Arrival: EMS: [facility] jd3 06:12 Acuity: LORE 4 jd3 Historical: - Allergies: 06:36 Allopurinol; jd3 06:36 Ciprofloxacin; jd3 06:36 Hydralazine; jd3 06:36 hydrochlorothiazide; jd3 06:36 PENICILLINS; jd3 06:36 reserpine; jd3 06:36 Darvon; jd3 06:36 Levaquin; jd3 - Home Meds: 06:36 levothyroxine 100 mcg tab 1 tab once daily [Active]; lorazepam 0.5 mg Oral tab 1 tab jd3 every 6 hours [Active]; sucralfate 1 gram Oral tab 1 tab three times a day [Active]; Metoprolol Tartrate 12.5 mg Oral 2 times per day [Active]; Uloric 40 mg oral tab 1 tab once daily [Active]; apixaban oral 2.5 mg oral 1 tab twice a day [Active]; escitalopram oxalate 20 mg oral tab 1 tab nightly [Active]; atorvastatin 20 mg oral tab 1 tab nightly [Active]; cyclosporine ophthalmic 0.05 % ophthalmic 1 mL every 12 hours for in both eyes [Active]; donepezil 10 mg oral tab 1 tab nightly [Active]; acetaminophen-codeine 300-30 mg Oral tab 1 tab every 6 hours [Active]; tramadol 50 mg Oral tab 1 tab every 6 hours [Active]; - PMHx: 06:36 Anemia; Atrial Fib; "cognitive communication deficit"; GERD; "chronic kidney disease"; jd3 Depression; Dementia; UTI; Anxiety; CHF; dysphagia; Hypertension; "heart failure"; Hyperlipidemia; Hypothyroidism; - PSHx: 06:36 G-tube placement; jd3 - Immunization history:: Adult Immunizations unknown. - Social history:: Smoking status: unknown. - Ebola Screening: : Patient negative for fever greater than or equal to 101.5 degrees Fahrenheit, and additional compatible Ebola Virus Disease symptoms. Screenin:42 Abuse screen: Denies threats or abuse. Nutritional screening: on G-tube feedings. jd3 Tuberculosis screening: No symptoms or risk factors identified. Fall Risk Secondary diagnosis (15 points) dementia, impaired mobility, Ambulatory Aid- None/Bed Rest/Nurse Assist (0 pts). Gait- Normal/Bed Rest/Wheelchair (0 pts) Mental Status- Overestimates/Forgets Limitations (15 pts.). Total Carson Fall Scale indicates Low Risk Score (25-44 pts). Fall prevention measures have been instituted. Side Rails Up X 2 Placed close to Nursing Station Frequent Obs/Assesments occuring. Assessment: 06:38 General: Appears in no apparent distress. Behavior is restless. Pain: Denies pain. jd3 Neuro: Level of Consciousness is awake, alert, confused, Oriented to person. Cardiovascular: Capillary refill < 3 seconds Patient's skin is warm and dry. Respiratory: Airway is patent Respiratory effort is even, unlabored, Respiratory pattern is regular, symmetrical, Denies shortness of breath. GI: Abdomen is round obese, G-Tube site noted to left upper abdomen. no G-Tube in place. Abd is soft and non tender X 4 quads. Patient currently denies abdominal pain. : No signs and/or symptoms were reported regarding the genitourinary system. EENT: No signs and/or symptoms were reported regarding the EENT system. Derm: Skin is intact, Skin is dry, Skin is normal, Skin temperature is warm. 07:30 Reassessment: Patient appears in no apparent distress at this time. No changes from jl7 previously documented assessment. Patient and/or family updated on plan of care and expected duration. Pain level reassessed. 07:54 Reassessment: [facility] will be sending transportation to transport pt back at this jl7 time. Vital Signs: 06:36 BP 125 / 53; Pulse 74; Resp 19 S; Temp 97.8(O); Pulse Ox 97% on R/A; Weight 86.18 kg jd3 (R); Height 5 ft. 4 in. (162.56 cm) (R); Pain 0/10; 08:03 BP 107 / 66; Pulse 69; Resp 16 S; Pulse Ox 97% on R/A; jl7 06:36 Body Mass Index 32.61 (86.18 kg, 162.56 cm) jd3 ED Course: 06:12 Patient arrived in ED. jd3 06:12 Stephanie Zacarias FNP-C is PHCP. kb 06:12 Amanuel Pedraza MD is Attending Physician. kb 06:15 Triage completed. jd3 06:37 Arm band placed on. jd3 06:44 Patient has correct armband on for positive identification. Bed in low position. Call j light in reach. Side rails up X2. 06:55 Jignesh Barba, RN is Primary Nurse. jd3 07:15 G-tube replacement. jl7 07:35 X-ray completed. Patient tolerated procedure well. kw 07:37 Abdomen 1 View (KUB) XRAY In Process Unspecified. EDMS 07:37 PEG Tube Check w/contrast In Process Unspecified. EDMS 08:16 Patient did not have IV access during this emergency room visit. jl7 Administered Medications: No medications were administered Outcome: 07:41 Discharge ordered by . kb 08:15 [facility] to [facility]. Report called to Charge Nurse jl7 08:15 Condition: stable 08:15 Discharge instructions given to patient, penitentiary, Instructed on discharge instructions, follow up and referral plans. Demonstrated understanding of instructions, follow-up care. 08:16 Patient left the ED. jl7 Signatures: Dispatcher [employer] EDMS Stephanie Zacarias FNP-C FNP-Ckb Whitley, Kimberlee kw Leal, Jahala RN SHAYNE jl7 Barba, Jignesh, RN RN jd3
--- NOTE | 2018-09-08 09:02 | RAD REPORT ---
EXAM DESCRIPTION: RAD - Abdomen 1 View (KUB) - 09/08/2018 7:37 am CLINICAL HISTORY: Abdominal pain, possible foreign body COMPARISON: None. FINDINGS: Bowel gas pattern is non-specific. Cholecystectomy clips are present. Pacemaker leads are identifiable. No retained foreign body is identifiable. No bowel obstruction, free air or pneumatosi s. Numerous phleboliths are present. Bony degenerative changes are present. IMPRESSION: No retained foreign body identifiable on these images.
--- NOTE | 2018-09-08 09:05 | RAD REPORT ---
EXAM DESCRIPTION: RAD - ENTEROSTOMY TUBE CHECK W/CONTR - 09/08/2018 7:40 am CLINICAL HISTORY: Gastric tube replacement or repositioning COMPARISON: None. FINDINGS: Two KUB images were obtained prior to and subsequent to retrograde contrast injection. PEG tube is identifiable on the precontrast imaging. There is motion degradation. Post-contrast imaging shows contrast within the stomach and small bowel. Balloon tip is seen in the d istal body of the stomach. No extravasation of contrast seen. IMPRESSION: PEG tube is in good position.
== END 2018-09-08 08:16 | disposition home or self-care (01) ==
LOC: ER 06:04
DX: Z43.1 Encounter for attention to gastrostomy (principal); Z46.59 Encounter for fitting and adjustment of other gastrointestinal appliance and device; Z88.0 Allergy status to penicillin; Z88.1 Allergy status to other antibiotic agents; Z88.8 Allergy status to other drugs, medicaments and biological substances; E78.5 Hyperlipidemia, unspecified; E03.9 Hypothyroidism, unspecified; I10 Essential (primary) hypertension; I12.9 Hypertensive chronic kidney disease with stage 1 through stage 4 chronic kidney disease, or unspecified chronic kidney disease; N18.9 Chronic kidney disease, unspecified; F41.9 Anxiety disorder, unspecified; K21.9 Gastro-esophageal reflux disease without esophagitis
CPT/HCPCS: 49465; 74018; 99283

== ENCOUNTER 2018-09-09 09:24 | Emergency (ER) | payer OTHER ==
--- OUTSIDE RECORDS SUMMARY | 2018-09-09 09:31 | XMS REPORT | Clinical Summary ---
:1930 [address] [facility] [employer] Address [address] [place] [address] Care Team Providers Name Role Phone Anthony Estrella Primary Care Provider Allergies Active Allergy Reactions Severity Noted Date Comments Allopurinol Analogues 05/26/2018 Ciprofloxacin 05/25/2018 Propoxyphene N-Acetaminophen 05/25/2018 Ogzdqknqeyv-Elbfugbp-Xvniihwuv 05/25/2018 Levofloxacin 05/25/2018 Penicillins Rash Low 05/25/2018 [...] 05/25/2018 Orders Only Jaycob Andrade RN after 09/08/2017 Social History Tobacco Use Types Packs/Day Years [...] procedure are in the results section. after 09/08/2017 Results RHYTHM STRIP - SCAN (05/31/2018 2:55 PM CDT) Narrative Performed At TRANSFUSION SERVICE REPORT - SCAN (05/28/2018 5:54 PM CDT)Only the most recent of2 resultswithin the time period is included. Narrative Performed At XR chest 1 view portable / bedside (05/28/2018 9:35 AM CDT) Narrative Performed At FINAL REPORT [facility] Comparison: 03/31/2014 TECHNIQUE: Single view of the chest FINDINGS: Lung volumes are low. Bibasilar densities may represent atelectasis. No gross new lung parenchymal changes. Cardiac silhouette is magnified by technique. Left-sided pacing device again noted. Signed: Luciana Squires MD Report Verified Date/Time:05/28/2018 12:17:09 Reading Location: [facility] Radiology Reading Room Procedure Note Interface, External Ris In - 05/28/2018 12:19 PM CDT FINAL REPORT Comparison: 03/31/2014 TECHNIQUE: Single view of the chest FINDINGS: Lung volumes are low. Bibasilar densities may represent atelectasis. No gross new lung parenchymal changes. Cardiac silhouette is magnified by technique. Left-sided pacing device again noted. Signed: Luciana Squires MD Report Verified Date/Time: 05/28/2018 12:17:09 Reading Location: [facility] Radiology Reading Room Performing Organization Address City/[facility]/Zipcode Phone Number RIS PT/aPTT (05/28/2018 5:36 AM CDT)Only the most recent of3 resultswithin the time period is included. Protime 13.2 (H) 9.3 - 12.0 sec [facility] INR 1.2 <=5.9 [facility] PTT 37.0 (H) 23.0 - 35.0 sec [facility] Specimen Blood Narrative Performed At [facility] RECOMMENDED COUMADIN/WARFARIN INR THERAPY RANGES STANDARD DOSE: 2.0 - 3.0 Includes: PROPHYLAXIS for venous thrombosis, systemic embolization; TREATMENT for venous thrombosis and/or pulmonary embolus. HIGH RISK: Target INR is 2.5-3.5 for patients with mechanical heart valves. Final Information (Auto Output) Final Information (Auto Output) Final Information (Auto Output) Performing Organization Address City/[facility]/Zipcode Phone Number [facility] [address] [place], [place] [phone] CBC with platelet count + automated diff [...] Blood Performing Organization Address City/State/Zipcode Phone Number [facility] [address] [place] [address] Phosphorus (05/28/2018 5:36 AM CDT)Only the most recent of3 resultswithin the time period is included. Phosphorus 1.7 (L) 2.5 - 4.5 mg/dL [facility] Specimen Blood Performing Organization Address City/[facility]/Zipcode Phone Number [facility] [address] [place], [place] [phone] Magnesium (05/28/2018 5:36 AM CDT)Only the most recent of3 resultswithin the time period is included. Magnesium 1.3 (L) 1.5 - 3.0 mg/dL [facility] Specimen Blood Performing Organization Address [facility] Phone Number [facility] [address] [place], [place] [phone] Comprehensive metabolic panel (05/28/2018 5:36 AM CDT)Only [...] 120 (H) 98 - 106 meq/L [facility] CO2 16 (L) 20 - 29 meq/L [facility] BUN 26 10 - 26 mg/dL [facility] Creatinine 0.97 0.50 - 1.20 mg/dL [facility] Glucose 98 70 - 110 mg/dL [facility] Calcium 9.6 8.5 - 10.5 mg/dL [facility] AST 27 5 - 40 U/L [facility] ALT 33 5 - 50 U/L [facility] EGFR 54Comment: ESTIMATED GFR mL/min/1.73 sq m [facility] IS NOT ACCURATE CREATININE CLEARANCE IN PREDICTING GLOMERULAR FILTRATION RATE. ESTIMATED GFR IS NOT APPLICABLE FOR DIALYSIS PATIENTS. Specimen Blood Performing Organization Address [facility] [place] Phone Number [facility] [address] [place], [place] [phone] Prepare plasma (05/27/2018 11:54 PM CDT) Unit ABO A Pos SAFETRACE TX UNIT NUMBER [id number] SAFETRACE TX Status TRANSFUSED SAFETRACE TX Blood Bank Product FFP SAFETRACE TX PRODUCT CODE [id number] [facility]AFET[facility] [place] Specimen Blood Performing Organization Address City/[facility] Phone Number SAFETR[facility] TX Prothrombin time/INR (05/27/2018 4:55 AM CDT)Only the most recent of2 resultswithin the time period is included. Protime 20.5 (H) 9.3 - 12.0 seconds [facility] INR 1.9 <=5.9 [facility] Specimen Blood Narrative Performed At [facility] RECOMMENDED COUMADIN/WARFARIN INR THERAPY RANGES STANDARD DOSE: 2.0 - 3.0 Includes: PROPHYLAXIS for venous thrombosis, systemic embolization; TREATMENT for venous thrombosis and/or pulmonary embolus. HIGH RISK: Target INR is 2.5-3.5 for patients with mechanical heart valves. Performing Organization Address City/[facility] Phone Number [facility] [address] [place] [address] [phone] Occult blood, stool (05/26/2018 6:02 PM CDT) Occult blood Positive (A) Negative [facility] Specimen Stool - Per Rectum Performing Organization Address [facility] Number [address] [phone] Transfuse plasma (05/26/2018 9:14 AM CDT)Only the most recent of2 resultswithin the time period is included.Troponin I (05/26/2018 3:53 AM CDT) Troponin I 0.23 (HH) 0.00 - 0.15 ng/mL [facility] Specimen Blood - Line, Venous Narrative Performed At [facility] Troponin I (TnI) levels must be interpreted [...] disease, and persistent tachyarrhythmia. Performing Organization Address [facility] Phone Number [facility] [address] [place], [place] [phone] Type and screen (05/26/2018 3:18 AM CDT) Ab Scrn NEGATIVE [facility] ABO Grouping A [facility] Rh Factor POS [facility] Specimen Blood - Line, Venous Performing Organization Address City/[facility] Phone Number [facility] [address] [place], [place] [phone] [facility] B-type Natriuretic Factor (BNP) (05/26/2018 3:18 AM CDT) BNP 736 (H) 0 - 100 pg/mL [facility] Specimen Blood - Line, Venous Performing Organization Address [facility] [place] Phone Number [facility] [address] [place], [place] [phone] Urinalysis w/ Microscopic (05/26/2018 1:50 AM CDT) Color, UA Yellow [facility] Clarity, UA Slightly Cloudy [facility] Specific Patriot, UA 1.015 1.001 - 1.035 [facility] pH, UA 8.0 5.0 - 8.0 [facility] Protein, UA 100 mg/dL (A) Negative [facility] Glucose, UA Negative Negative [facility] Ketones, UA Trace (A) Negative [facility] Bilirubin, UA Positive (A) Negative [facility] Blood, UA Large (A) Negative [facility] Nitrite, UA Positive (A) Negative [facility] Leukocytes, UA Large (A) Negative [facility] Urobilinogen, UA 1.0 0.2 - 1.0 mg/dL [facility] Bacteria, UA Many [facility] RBC, UA >100 /HPF [facility] WBC, UA 50-100 /HPF [facility] SQUAMOUS EPITHELIAL 5-10 /HPF [facility] Specimen Source [facility] Specimen Urine - Urine, Don Performing Organization Address [facility] Phone Number [facility] [address] [place], [place] [phone] Basic metabolic panel (05/26/2018 1:48 AM CDT) Sodium 145 135 - 148 meq/L [facility] Potassium 4.4Comment: Specimen moderately 3.6 - 5.5 meq/L [facility] hemolyzed Chloride 118 (H) 98 - 106 meq/L [facility] CO2 15 (L) 20 - 29 meq/L [facility] BUN 51 (H) 10 - 26 mg/dL [facility] Creatinine 1.37 (H)Comment: Specimen 0.50 - 1.20 mg/dL [facility] moderately hemolyzed Glucose 106 70 - 110 mg/dL [facility] Calcium 11.8 (H) 8.5 - 10.5 mg/dL [facility] EGFR 36Comment: ESTIMATED GFR IS NOT mL/min/1.73 sq m [facility] ACCURATE CREATININE CLEARANCE IN PREDICTING GLOMERULAR FILTRATION RATE. ESTIMATED GFR IS NOT APPLICABLE FOR DIALYSIS PATIENTS. Specimen Blood - Arm, Left Performing Organization Address [facility] [place] Phone Number [facility] [address] [place], [place] [phone] Urine culture (05/26/2018 1:08 AM CDT) Result (A) [facility] Specimen Urine - Urine, Clean Catch [...] + Sulfamethoxazole <=20: Susceptible Performing Organization Address [facility] Phone Number [facility] [address] [place], [place] [phone] after 09/08/2017 Insurance Payer Benefit Plan / Group Subscriber ID Type Phone Address MEDICARE MEDICARE A B xxxxxxxxxx Medicare MCR [employer] SENIOR SUPPLEMENTAL xxxxxxxxxx SUPPLEMENT/INDIVIDUAL (Home) [place] [address] Advance Directives Patient has advance care planning documents, and code status on file. For more information, please contact:[address] [phone] Code Status Date Activated Date Inactivated Comments Full Code 05/26/2018 12:08 AM 05/28/2018 9:10 PM This code status was determined by: Patient
--- OUTSIDE RECORDS SUMMARY | 2018-09-09 09:32 | XMS REPORT ---
:1930 [facility] [address] [place] [id number] Care Team Providers Name Role Phone GAUDENCIO CONNELLY Unavailable Unavailable Problems This patient has no known problems. Allergies, Adverse Reactions, Alerts This patient has no known allergies or adverse reactions. Medications This patient has no known medications. Results Test Description Test Time Test Comments Text Results Atomic Results Result Comments URINE CULTURE 2018-05-29 08:41:00 Test Item Value Reference Range Comments CULTURE (BEAKER) (test bnsy=3627) PROTEUS MIRABILIS >100,000 col/mL Proteus mirabilis Amikacin (test code=1) Ampicillin + Sulbactam (test code=6) Aztreonam (test code=32) Cefazolin (test code=9) Cefepime (test code=51) Cefoxitin (test code=68) Ceftazidime (test code=27) Ceftriaxone (test code=52) Ertapenem (test code=38) Gentamicin (test code=18) Levofloxacin (test code=22) Meropenem (test code=34) Nitrofurantoin (test code=23) Piperacillin + Tazobactam (test code=29) Tetracycline (test code=2) Tigecycline (test mvxk=974) Tobramycin (test code=25) Trimethoprim + Sulfamethoxazole (test code=47) RAD, CHEST, 1 VIEW, NON [id number] 12:17:00Reason for exam:-> pneumoniaShould this be performed at the bedside?->YesFINAL REPORT Comparison: 03/31/2014 TECHNIQUE: Single view of the chest FINDINGS : Lung volumes are low. Bibasilar densities may represent atelectasis. No gross new lung parenchymal changes. Cardiac silhouette is magnified by technique. Left -sided pacing device again noted. Signed: Luciana Squires MDReport Verified Date/ Time: 05/28/2018 12:17:09 Reading Location: [facility] Radiology Reading Room COMPREHENSIVE METABOLIC [id number] 06:24:00 Test Item Value Reference Range Comments TOTAL PROTEIN (BEAKER) 4.8 gm/dL 6.0-8.5 (test qyte=168) ALBUMIN (BEAKER) (test 2.5 g/dL 3.5-5.0 bpom=9875) ALKALINE PHOSPHATASE 129 U/L 30-115 (BEAKER) (test wpvy=548) BILIRUBIN TOTAL (BEAKER) 0.5 mg/dL 0.1-1.2 (test atlz=348) SODIUM (BEAKER) (test 144 meq/L 135-148 vanz=273) POTASSIUM (BEAKER) (test 3.3 meq/L 3.6-5.5 doqm=992) CHLORIDE (BEAKER) (test 120 meq/L 98-106 fldu=462) CO2 (BEAKER) (test 16 meq/L 20-29 hbht=368) BLOOD UREA NITROGEN 26 mg/dL 10-26 (BEAKER) (test nvdu=707) CREATININE (BEAKER) (test 0.97 mg/dL 0.50-1.20 mdog=946) GLUCOSE RANDOM (BEAKER) 98 mg/dL 70-110 (test tlvc=765) CALCIUM (BEAKER) (test 9.6 mg/dL 8.5-10.5 prpw=101) AST (SGOT) (BEAKER) (test 27 U/L 5-40 bhri=650) ALT (SGPT) (BEAKER) (test 33 U/L 5-50 rcbr=747) EGFR (BEAKER) (test 54 mL/min/1.73 sq m ESTIMATED GFR IS NOT ehok=3046) ACCURATE CREATININE CLEARANCE IN PREDICTING GLOMERULAR FILTRATION RATE. ESTIMATED GFR IS NOT APPLICABLE FOR DIALYSIS PATIENTS. [id number] 06:15:00 Test Item Value Reference Range Comments PHOSPHORUS (BEAKER) (test ckrq=836) 1.7 mg/dL 2.5-4.5 [id number] 06:10:00 Test Item Value Reference Range Comments MAGNESIUM (BEAKER) (test bnlq=358) 1.3 mg/dL 1.5-3.0 [id number] 06:00:00 Test Item Value Reference Range Comments PROTIME (BEAKER) (test ymlb=464) 13.2 sec 9.3-12.0 INR (BEAKER) (test dzmh=858) 1.2 <=5.9 PARTIAL THROMBOPLASTIN TIME (BEAKER) (test 37.0 sec 23.0-35.0 dcgn=387) RECOMMENDED COUMADIN/WARFARIN INR THERAPY RANGESSTANDARD DOSE: 2.0 - 3.0 Includes: PROPHYLAXIS forvenous thrombosis, systemic embolization; TREATMENT for venous thrombosis and/or pulmonary embolus.HIGH RISK: Target INR is 2.5-3.5 for patients with mechanical heart valves.Final Information (Auto Output)Final Information (Auto Output)Final Information (Auto Output)CBC W/PLT COUNT & AUTO [id number] 05:55:00 Test Item Value Reference Range Comments WHITE BLOOD CELL COUNT (BEAKER) (test scuu=617) 8.0 K/ L 4.0-10.0 RED BLOOD CELL COUNT (BEAKER) (test qivv=319) 3.56 M/ L 4.00-5.00 HEMOGLOBIN (BEAKER) (test vqwo=905) 11.5 GM/DL 12.0-15.0 HEMATOCRIT (BEAKER) (test cajy=167) 34.5 % 36.0-45.0 MEAN CORPUSCULAR VOLUME (BEAKER) (test xwxd=327) 96.8 fL 82.0-99.0 MEAN CORPUSCULAR HEMOGLOBIN (BEAKER) (test 32.2 pg 27.0-33.0 winu=267) MEAN CORPUSCULAR HEMOGLOBIN CONC (BEAKER) (test 33.3 GM/DL 32.0-36.0 yjqh=334) RED CELL DISTRIBUTION WIDTH (BEAKER) (test 14.6 % 10.3-14.2 oleb=978) PLATELET COUNT (BEAKER) (test dyzz=412) 103 K/CU MM 150-430 MEAN PLATELET VOLUME (BEAKER) (test owas=049) 11.0 fL 6.5-10.5 NUCLEATED RED BLOOD CELLS (BEAKER) (test 0 /100 WBC 0-0 tlkn=715) NEUTROPHILS RELATIVE PERCENT (BEAKER) (test 70 % fcxy=736) LYMPHOCYTES RELATIVE PERCENT (BEAKER) (test 15 % lbtc=069) MONOCYTES RELATIVE PERCENT (BEAKER) (test 12 % kvdl=111) EOSINOPHILS RELATIVE PERCENT (BEAKER) (test 2 % fsnr=611) BASOPHILS RELATIVE PERCENT (BEAKER) (test 1 % rhnw=835) NEUTROPHILS ABSOLUTE COUNT (BEAKER) (test 5.60 K/ L 1.80-8.00 dzwn=669) LYMPHOCYTES ABSOLUTE COUNT (BEAKER) (test 1.20 K/ L 1.48-4.50 jixw=373) MONOCYTES ABSOLUTE COUNT (BEAKER) (test 1.00 K/ L 0.00-1.30 pwgj=284) EOSINOPHILS ABSOLUTE COUNT (BEAKER) (test 0.20 K/ L 0.00-0.50 qlcp=300) BASOPHILS ABSOLUTE COUNT (BEAKER) (test 0.00 K/ L 0.00-0.20 gaiy=948) [id number] 06:06:00 Test Item Value Reference Range Comments PHOSPHORUS (BEAKER) (test 1.3 mg/dL 2.5-4.5 Specimen slightly hemolyzed mdod=942) [id number] 05:52:00 Test Item Value Reference Range Comments PROTIME (BEAKER) (test mixi=854) 20.5 seconds 9.3-12.0 INR (BEAKER) (test yagk=284) 1.9 <=5.9 PARTIAL THROMBOPLASTIN TIME (BEAKER) (test 36.9 seconds 23.0-35.0 gjqw=364) RECOMMENDED COUMADIN/WARFARIN INR THERAPY RANGESSTANDARD DOSE: 2.0 - 3.0 Includes: PROPHYLAXIS forvenous thrombosis, systemic embolization; TREATMENT for venous thrombosis and/or pulmonary embolus.HIGH RISK: Target INR is 2.5-3.5 for patients with mechanical heart valves.PROTHROMBIN [id number] 05:52: 00 Test Item Value Reference Range Comments PROTIME (BEAKER) (test bmpo=115) 20.5 seconds 9.3-12.0 INR (BEAKER) (test uvmh=382) 1.9 <=5.9 RECOMMENDED COUMADIN/WARFARIN INR THERAPY RANGESSTANDARD DOSE: 2.0 - 3.0 Includes: PROPHYLAXIS forvenous thrombosis, systemic embolization; TREATMENT for venous thrombosis and/or pulmonary embolus.HIGH RISK: Target INR is 2.5-3.5 for patients with mechanical heart valves.COMPREHENSIVE METABOLIC [id number] 05:34:00 Test Item Value Reference Range Comments TOTAL PROTEIN (BEAKER) 5.8 gm/dL 6.0-8.5 Specimen slightly (test xvul=127) hemolyzed ALBUMIN (BEAKER) (test 3.0 g/dL 3.5-5.0 Specimen slightly fotb=3859) hemolyzed ALKALINE PHOSPHATASE 155 U/L 30-115 (BEAKER) (test loaf=144) BILIRUBIN TOTAL (BEAKER) 0.5 mg/dL 0.1-1.2 Specimen slightly (test aktp=388) hemolyzed SODIUM (BEAKER) (test 147 meq/L 135-148 kacn=757) POTASSIUM (BEAKER) (test 3.1 meq/L 3.6-5.5 Specimen slightly ywhj=191) hemolyzed CHLORIDE (BEAKER) (test 118 meq/L 98-106 lrvm=968) CO2 (BEAKER) (test 18 meq/L 20-29 vrxp=932) BLOOD UREA NITROGEN 35 mg/dL 10-26 (BEAKER) (test yurn=702) CREATININE (BEAKER) (test 1.09 mg/dL 0.50-1.20 Specimen slightly nkwt=589) hemolyzed GLUCOSE RANDOM (BEAKER) 99 mg/dL 70-110 (test sdly=969) CALCIUM (BEAKER) (test 11.0 mg/dL 8.5-10.5 qiby=898) AST (SGOT) (BEAKER) (test 37 U/L 5-40 Specimen slightly gcwh=243) hemolyzed ALT (SGPT) (BEAKER) (test 51 U/L 5-50 Specimen slightly dgxt=958) hemolyzed EGFR (BEAKER) (test 47 mL/min/1.73 sq m ESTIMATED GFR IS NOT jjvw=7926) ACCURATE CREATININE CLEARANCE IN PREDICTING GLOMERULAR FILTRATION RATE. ESTIMATED GFR IS NOT APPLICABLE FOR DIALYSIS PATIENTS. [id number] 05:25:00 Test Item Value Reference Range Comments MAGNESIUM (BEAKER) (test 1.6 mg/dL 1.5-3.0 Specimen slightly hemolyzed rcrz=392) CBC W/PLT COUNT & AUTO [id number] 05:13:00 Test Item Value Reference Range Comments WHITE BLOOD CELL COUNT (BEAKER) (test qwbb=274) 12.9 K/ L 4.0-10.0 RED BLOOD CELL COUNT (BEAKER) (test uksq=141) 4.03 M/ L 4.00-5.00 HEMOGLOBIN (BEAKER) (test zdie=404) 12.9 GM/DL 12.0-15.0 HEMATOCRIT (BEAKER) (test cqqo=910) 38.8 % 36.0-45.0 MEAN CORPUSCULAR VOLUME (BEAKER) (test mjcb=742) 96.3 fL 82.0-99.0 MEAN CORPUSCULAR HEMOGLOBIN (BEAKER) (test 31.9 pg 27.0-33.0 hhrh=791) MEAN CORPUSCULAR HEMOGLOBIN CONC (BEAKER) (test 33.2 GM/DL 32.0-36.0 wvvn=882) RED CELL DISTRIBUTION WIDTH (BEAKER) (test 14.5 % 10.3-14.2 jwyv=923) PLATELET COUNT (BEAKER) (test ywwi=093) 164 K/CU MM 150-430 MEAN PLATELET VOLUME (BEAKER) (test qgvn=180) 11.5 fL 6.5-10.5 NUCLEATED RED BLOOD CELLS (BEAKER) (test 0 /100 WBC 0-0 qzum=201) NEUTROPHILS RELATIVE PERCENT (BEAKER) (test 79 % qspy=231) LYMPHOCYTES RELATIVE PERCENT (BEAKER) (test 9 % tsik=197) MONOCYTES RELATIVE PERCENT (BEAKER) (test 10 % wjrs=555) EOSINOPHILS RELATIVE PERCENT (BEAKER) (test 1 % vvui=862) BASOPHILS RELATIVE PERCENT (BEAKER) (test 0 % mrqd=937) NEUTROPHILS ABSOLUTE COUNT (BEAKER) (test 10.20 K/ L 1.80-8.00 dmuf=891) LYMPHOCYTES ABSOLUTE COUNT (BEAKER) (test 1.20 K/ L 1.48-4.50 onkt=949) MONOCYTES ABSOLUTE COUNT (BEAKER) (test 1.30 K/ L 0.00-1.30 ayrk=102) EOSINOPHILS ABSOLUTE COUNT (BEAKER) (test 0.10 K/ L 0.00-0.50 chjs=120) BASOPHILS ABSOLUTE COUNT (BEAKER) (test 0.00 K/ L 0.00-0.20 cnag=037) OCCULT BLOOD, [id number] 18:13:00 Test Item Value Reference Range Comments FECAL OCCULT BLOOD (BEAKER) (test syah=299) Positive Negative PROTHROMBIN [id number] 16:59:00 Test Item Value Reference Range Comments PROTIME (BEAKER) (test maqr=924) 70.5 sec 9.3-12.0 INR (BEAKER) (test cmdm=432) 7.2 <=5.9 RECOMMENDED COUMADIN/WARFARIN INR THERAPY RANGESSTANDARD DOSE: 2.0 - 3.0 Includes: PROPHYLAXIS forvenous thrombosis, systemic embolization; TREATMENT for venous thrombosis and/or pulmonary embolus.HIGH RISK: Target INR is 2.5-3.5 for patients with mechanical heart valves.Final Information (Auto Output)Final Information (Auto Output)TROPONIN [id number] 05:46:00 Test Item Value Reference Range Comments TROPONIN I (BEAKER) (test bwxo=937) 0.23 ng/mL 0.00-0.15 Troponin I (TnI) levels [...] NATRIURETIC PEPTIDE (BEAKER) (test 736 pg/mL 0-100 jslc=904) CBC W/PLT COUNT & AUTO [id number] 04:08:00 Test Item Value Reference Range Comments WHITE BLOOD CELL COUNT (BEAKER) (test zhrr=458) 12.3 K/ L 4.0-10.0 RED BLOOD CELL COUNT (BEAKER) (test dtfi=431) 4.41 M/ L 4.00-5.00 HEMOGLOBIN (BEAKER) (test njse=869) 13.0 GM/DL 12.0-15.0 HEMATOCRIT (BEAKER) (test jyeu=783) 42.0 % 36.0-45.0 MEAN CORPUSCULAR VOLUME (BEAKER) (test aohb=103) 95.2 fL 82.0-99.0 MEAN CORPUSCULAR HEMOGLOBIN (BEAKER) (test 29.5 pg 27.0-33.0 xrll=354) MEAN CORPUSCULAR HEMOGLOBIN CONC (BEAKER) (test 31.0 GM/DL 32.0-36.0 mpli=371) RED CELL DISTRIBUTION WIDTH (BEAKER) (test 13.6 % 10.3-14.2 vihp=331) PLATELET COUNT (BEAKER) (test ahul=367) 181 K/CU MM 150-430 MEAN PLATELET VOLUME (BEAKER) (test ioej=178) 12.5 fL 6.5-10.5 NEUTROPHILS RELATIVE PERCENT (BEAKER) (test 79 % deke=364) LYMPHOCYTES RELATIVE PERCENT (BEAKER) (test 10 % zcqm=821) MONOCYTES RELATIVE PERCENT (BEAKER) (test 11 % gyeh=088) EOSINOPHILS RELATIVE PERCENT (BEAKER) (test 0 % fiqt=427) BASOPHILS RELATIVE PERCENT (BEAKER) (test 0 % mczs=461) NEUTROPHILS ABSOLUTE COUNT (BEAKER) (test 9.60 K/ L 1.80-8.00 abzz=727) LYMPHOCYTES ABSOLUTE COUNT (BEAKER) (test 1.30 K/ L 1.48-4.50 shxi=740) MONOCYTES ABSOLUTE COUNT (BEAKER) (test 1.30 K/ L 0.00-1.30 eljp=125) EOSINOPHILS ABSOLUTE COUNT (BEAKER) (test 0.00 K/ L 0.00-0.50 zvoq=066) BASOPHILS ABSOLUTE COUNT (BEAKER) (test 0.00 K/ L 0.00-0.20 nfxd=346) [id number] 02:35:00 Test Item Value Reference Range Comments PHOSPHORUS (BEAKER) (test 1.4 mg/dL 2.5-4.5 Specimen moderately hemolyzed uljg=755) BASIC METABOLIC [id number] 02:34:00 Test Item Value Reference Range Comments SODIUM (BEAKER) (test 145 meq/L 135-148 vixt=533) POTASSIUM (BEAKER) (test 4.4 meq/L 3.6-5.5 Specimen moderately okql=799) hemolyzed CHLORIDE (BEAKER) (test 118 meq/L 98-106 uqpv=236) CO2 (BEAKER) (test 15 meq/L 20-29 vkfl=601) BLOOD UREA NITROGEN 51 mg/dL 10-26 (BEAKER) (test aymt=312) CREATININE (BEAKER) (test 1.37 mg/dL 0.50-1.20 Specimen moderately hnsf=142) hemolyzed GLUCOSE RANDOM (BEAKER) 106 mg/dL 70-110 (test gfch=544) CALCIUM (BEAKER) (test 11.8 mg/dL 8.5-10.5 vuqg=900) EGFR (BEAKER) (test 36 mL/min/1.73 sq m ESTIMATED GFR IS NOT btgy=4387) ACCURATE CREATININE CLEARANCE IN PREDICTING GLOMERULAR FILTRATION RATE. ESTIMATED GFR IS NOT APPLICABLE FOR DIALYSIS PATIENTS. [id number] 02:20:00 Test Item Value Reference Range Comments MAGNESIUM (BEAKER) (test 2.4 mg/dL 1.5-3.0 Specimen moderately hemolyzed kyxj=049) [id number] 02:20:00 Test Item Value Reference Range Comments PROTIME (BEAKER) (test wfau=403) 76.0 sec 9.3-12.0 INR (BEAKER) (test qnwx=057) 7.8 <=5.9 PARTIAL THROMBOPLASTIN TIME (BEAKER) (test 63.2 sec 23.0-35.0 ljoj=792) RECOMMENDED COUMADIN/WARFARIN INR THERAPY RANGESSTANDARD DOSE: 2.0 - 3.0 Includes: PROPHYLAXIS forvenous thrombosis, systemic embolization; TREATMENT for venous thrombosis and/or pulmonary embolus.HIGH RISK: Target INR is 2.5-3.5 for patients with mechanical heart valves.Final Information (Auto Output)Final Information (Auto Output)Final Information (Auto Output)URINALYSIS W/ [id number] 02:19:00 Test Item Value Reference Range Comments COLOR (BEAKER) (test bycz=342) Yellow CLARITY (BEAKER) (test qbxd=016) Slightly Cloudy SPECIFIC GRAVITY UA (BEAKER) (test zdhz=599) 1.015 1.001-1.035 PH UA (BEAKER) (test qsyo=955) 8.0 5.0-8.0 PROTEIN UA (BEAKER) (test vydd=028) 100 mg/dL Negative GLUCOSE UA (BEAKER) (test zuts=514) Negative Negative KETONES UA (BEAKER) (test keid=384) Trace Negative BILIRUBIN UA (BEAKER) (test hwvy=006) Positive Negative BLOOD UA (BEAKER) (test dpgd=506) Large Negative NITRITE UA (BEAKER) (test losr=738) Positive Negative LEUKOCYTE ESTERASE UA (BEAKER) (test Large Negative eydq=444) UROBILINOGEN UA (BEAKER) (test ipuo=778) 1.0 mg/dL 0.2-1.0 BACTERIA (BEAKER) (test yadf=047) Many RBC UA-MANUAL (BEAKER) (test zsxe=3407) >100 /HPF WBC UA-MANUAL (BEAKER) (test omqk=8915) 50-100 /HPF SQUAMOUS EPITHELIAL MANUAL (BEAKER) (test 5-10 /HPF pjgi=5251) SOURCE(BEAKER) (test vjgl=3739)
--- NOTE | 2018-09-09 11:25 | RAD REPORT ---
EXAM DESCRIPTION: RAD - Abdomen 1 View (KUB) - 09/09/2018 11:17 am CLINICAL HISTORY: confirm Tube placement, with contrast Pain COMPARISON: Abdomen 1 View (KUB) dated 09/08/2018; ENTEROSTOMY TUBE CHECK W/CONTR dated 09/08/2018 FINDINGS: 3 static images were obtained. Contrast was infused via the G-tube and is seen to fill the stomach and small bowel, indicating appropriate placement. No leakage of contrast seen.
--- NOTE | 2018-09-09 11:35 | ER ---
Nurse's Notes [facility] Name: Sally Suárez Age: 88 yrs Sex: Female : 1930 Arrival Date: 09/09/2018 Time: 09:26 Bed 19 Private MD: Diagnosis: Encounter for PEG tube replacement Presentation: 09/09 09:26 Presenting complaint: EMS states: PULLED HER PEG TUBE. Transition of care: patient was bp not received from another setting of care. Onset of symptoms is unknown. Risk Assessment: Do you want to hurt yourself or someone else? Patient reports no desire to harm self or others. Initial Sepsis Screen: Does the patient meet any 2 criteria? No. Patient's initial sepsis screen is negative. Does the patient have a suspected source of infection? No. Patient's initial sepsis screen is negative. Care prior to arrival: None. 09:26 Method Of Arrival: EMS: [facility] bp 09:26 Acuity: LORE 4 bp Triage Assessment: 09:26 General: Appears in no apparent distress. obese, Behavior is cooperative, anxious, bp inappropriate for age. Pain: Unable to use pain scale. Does not appear to understand pain scale. Historical: - Allergies: 10:04 Allopurinol; sv 10:04 Ciprofloxacin; sv 10:04 HYDRALAZINE; sv 10:04 Hydrochlorothiazide; sv 10:04 PENICILLINS; sv 10:04 reserpine; sv 10:04 Darvon; sv 10:04 Levaquin; sv 10:08 Allopurinol; aj 10:08 Ciprofloxacin; aj 10:08 Darvon; aj 10:08 HYDRALAZINE; aj 10:08 Hydrochlorothiazide; aj 10:08 Levaquin; aj 10:08 PENICILLINS; aj 10:08 reserpine; aj 10:08 Demerol; aj - Home Meds: 10:08 acetaminophen-codeine 300-30 mg Oral tab 1 tab every 6 hours [Active]; apixaban 2.5 mg aj Oral 1 tab twice a day [Active]; atorvastatin 20 mg Oral tab 1 tab nightly [Active]; cyclosporine 0.05 % ophthalmic 1 mL every 12 hours for in both eyes [Active]; donepezil 10 mg Oral tab 1 tab nightly [Active]; escitalopram oxalate 20 mg Oral tab 1 tab nightly [Active]; levothyroxine 100 mcg tab 1 tab once daily [Active]; lorazepam 0.5 mg Oral tab 1 tab every 6 hours [Active]; sucralfate 1 gram Oral tab 1 tab three times a day [Active]; Metoprolol Tartrate 12.5 MG Oral 2 times per day [Active]; tramadol 50 mg Oral tab 1 tab every 6 hours [Active]; Uloric 40 mg Oral tab 1 tab once daily [Active]; - PMHx: 10:04 "chronic kidney disease"; "cognitive communication deficit"; "heart failure"; Anemia; sv Anxiety; Atrial Fib; CHF; Dementia; Depression; DYSPHAGIA; GERD; Hyperlipidemia; Hypertension; Hypothyroidism; UTI; 10:08 "chronic kidney disease"; "cognitive communication deficit"; "heart failure"; Anemia; aj Anxiety; Atrial Fib; CHF; Dementia; Depression; DYSPHAGIA; GERD; Hyperlipidemia; Hypertension; Hypothyroidism; UTI; - PSHx: 10:04 G-tube placement; sv 10:08 G-tube placement; aj - Immunization history:: Adult Immunizations up to date. - Social history:: Smoking status: Patient/guardian denies using tobacco. - Ebola Screening: : Patient negative for fever greater than or equal to 101.5 degrees Fahrenheit, and additional compatible Ebola Virus Disease symptoms Patient denies exposure to infectious person Patient denies travel to an Ebola-affected area in the 21 days before illness onset No symptoms or risks identified at this time. - Family history:: not pertinent. - Hospitalizations: : No recent hospitalization is reported. Screenin:30 Abuse screen: Denies threats or abuse. Denies injuries from another. Nutritional bp screening: No deficits noted. Tuberculosis screening: No symptoms or risk factors identified. Fall Risk None identified. Assessment: 09:35 General: Appears in no apparent distress. comfortable, Behavior is calm, cooperative. sv Neuro: Level of Consciousness is awake, confused. Respiratory: Respiratory effort is even, unlabored, Respiratory pattern is regular, symmetrical. 10:03 General: Appears in no apparent distress. comfortable, Behavior is calm, cooperative, aj appropriate for age. Pain: Denies pain. Neuro: Level of Consciousness is awake, confused, Oriented to none. Respiratory: Airway is patent Respiratory effort is even, unlabored, Respiratory pattern is regular, symmetrical. GI: Abdomen is flat, non-distended, PEG tube out of place. Derm: Skin is intact, is fragile, is thin, Skin is pink, warm \\T\\ dry. normal. 11:57 Reassessment: Patient appears in no apparent distress at this time. No changes from aj previously documented assessment. Vital Signs: 09:29 BP 116 / 46; Pulse 70; Resp 16; Temp 97.9; Pulse Ox 100% ; Weight 90.72 kg; bp 11:33 BP 119 / 51; Pulse 69; Resp 17; Pulse Ox 99% on R/A; aj ED Course: 09:26 Patient arrived in ED. bp 09:28 Triage completed. bp 09:28 Alexis Guajardo MD is Attending Physician. rn 09:30 Arm band placed on. bp 09:30 Patient has correct armband on for positive identification. Bed in low position. Call bp light in reach. Side rails up X2. Adult w/ patient. 10:03 Madelin Cuevas, RN is Primary Nurse. aj 10:28 G tube placement. aj 11:18 XRAY Abdomen 1 View (KUB) In Process Unspecified. EDMS 11:57 Patient did not have IV access during this emergency room visit. Patient maintains SpO2 aj saturation greater than 95% on room air. 12:04 Report given to Shelley at [facility]. aj Administered Medications: No medications were administered Outcome: 11:35 Discharge ordered by . rn 11:57 Discharged to snf. Transfer form completed. Valuables list done. aj 11:57 Condition: good 11:57 Discharge instructions given to patient, family, Instructed on discharge instructions. 12:14 Patient left the ED. aj Signatures: Dispatcher [employer] EDVilma Irizarry RN RN sv Myers, Amanda, RN RN aj Nieto, Roman, MD MD rn Peltier, Brian, RN RN bp
--- NOTE | 2018-09-09 11:35 | EDPHYS ---
Physician Documentation [facility] Name: Sally Suárez Age: 88 yrs Sex: Female : 1930 Arrival Date: 09/09/2018 Time: 09:26 Bed 19 Private MD: ED Physician Alexis Guajardo HPI: 09/09 10:17 This 88 yrs old Female presents to ER via EMS with complaints of PEG TUBE rn REMOVAL. 10:17 Brought in after patient removed feeding tube once again, just had feeding tube rn replaced yesterday.. Onset: The symptoms/episode began/occurred today. Severity of symptoms: At their worst the symptoms were mild. The patient has been recently seen at the [facility] Emergency Department. Historical: - Allergies: 10:04 Allopurinol; sv 10:04 Ciprofloxacin; sv 10:04 HYDRALAZINE; sv 10:04 Hydrochlorothiazide; sv 10:04 PENICILLINS; sv 10:04 reserpine; sv 10:04 Darvon; sv 10:04 Levaquin; sv 10:08 Allopurinol; aj 10:08 Ciprofloxacin; aj 10:08 Darvon; aj 10:08 HYDRALAZINE; aj 10:08 Hydrochlorothiazide; aj 10:08 Levaquin; aj 10:08 PENICILLINS; aj 10:08 reserpine; aj 10:08 Demerol; aj - Home Meds: 10:08 acetaminophen-codeine 300-30 mg Oral tab 1 tab every 6 hours [Active]; apixaban 2.5 mg aj Oral 1 tab twice a day [Active]; atorvastatin 20 mg Oral tab 1 tab nightly [Active]; cyclosporine 0.05 % ophthalmic 1 mL every 12 hours for in both eyes [Active]; donepezil 10 mg Oral tab 1 tab nightly [Active]; escitalopram oxalate 20 mg Oral tab 1 tab nightly [Active]; levothyroxine 100 mcg tab 1 tab once daily [Active]; lorazepam 0.5 mg Oral tab 1 tab every 6 hours [Active]; sucralfate 1 gram Oral tab 1 tab three times a day [Active]; Metoprolol Tartrate 12.5 MG Oral 2 times per day [Active]; tramadol 50 mg Oral tab 1 tab every 6 hours [Active]; Uloric 40 mg Oral tab 1 tab once daily [Active]; - PMHx: 10:04 "chronic kidney disease"; "cognitive communication deficit"; "heart failure"; Anemia; sv Anxiety; Atrial Fib; CHF; Dementia; Depression; DYSPHAGIA; GERD; Hyperlipidemia; Hypertension; Hypothyroidism; UTI; 10:08 "chronic kidney disease"; "cognitive communication deficit"; "heart failure"; Anemia; aj Anxiety; Atrial Fib; CHF; Dementia; Depression; DYSPHAGIA; GERD; Hyperlipidemia; Hypertension; Hypothyroidism; UTI; - PSHx: 10:04 G-tube placement; sv 10:08 G-tube placement; aj - Immunization history:: Adult Immunizations up to date. - Social history:: Smoking status: Patient/guardian denies using tobacco. - Ebola Screening: : Patient negative for fever greater than or equal to 101.5 degrees Fahrenheit, and additional compatible Ebola Virus Disease symptoms Patient denies exposure to infectious person Patient denies travel to an Ebola-affected area in the 21 days before illness onset No symptoms or risks identified at this time. - Family history:: not pertinent. - Hospitalizations: : No recent hospitalization is reported. ROS: 10:17 Constitutional: Negative for fever, chills, and weight loss, Eyes: Negative for injury, rn pain, redness, and discharge, Cardiovascular: Negative for chest pain, palpitations, and edema, Respiratory: Negative for shortness of breath, cough, wheezing, and pleuritic chest pain, Abdomen/GI: Negative for abdominal pain, nausea, vomiting, diarrhea, and constipation, MS/Extremity: Negative for injury and deformity, Skin: Negative for injury, rash, and discoloration, Neuro: Negative for headache, weakness, numbness, tingling, and seizure. Exam: 10:17 Constitutional: This is a well developed, well nourished patient who is awake, alert, rn and in no acute distress. Abdomen/GI: soft, non-tender, PEG stoma open, no evidence of infection Vital Signs: 09:29 BP 116 / 46; Pulse 70; Resp 16; Temp 97.9; Pulse Ox 100% ; Weight 90.72 kg; bp 11:33 BP 119 / 51; Pulse 69; Resp 17; Pulse Ox 99% on R/A; aj MDM: 09:28 Patient medically screened. rn 11:33 Differential Diagnosis PEG tube removal. Data reviewed: vital signs, nurses notes, rn radiologic studies, plain films, and as a result, I will discharge patient. Counseling: I had a detailed discussion with the patient and/or guardian regarding: the historical points, exam findings, and any diagnostic results supporting the discharge/admit diagnosis, radiology results, the need for outpatient follow up, to return to the emergency department if symptoms worsen or persist or if there are any questions or concerns that arise at home. Special discussion: I discussed with the patient/guardian in detail that at this point there is no indication for admission to the hospital. It is understood, however, that if the symptoms persist or worsen the patient needs to return immediately for re-evaluation. 09/09 10:16 Order name: XRAY Abdomen 1 View (KUB); Complete Time: 11:33 rn Administered Medications: No medications were administered Disposition: 09/09/18 11:35 Discharged to Home. Impression: Encounter for PEG tube replacement. - Condition is Stable. - Discharge Instructions: PEG Tube Home Guide. - Medication Reconciliation Form, Thank You Letter, Antibiotic Education, Prescription Opioid Use form. - Follow up: Private Physician; When: As needed; Reason: Recheck today's complaints, Re-evaluation by your physician. - Problem is new. - Symptoms have improved. Signatures: Dispatcher [employer] EDVilma Irizarry RN RN sv Myers, Amanda, RN RN aj Nieto, Roman, MD MD rn Peltier, Brian RN RN bp Corrections: (The following items were deleted from the chart) 12:14 11:35 09/09/2018 11:35 Discharged to Home. Impression: Encounter for PEG tube aj replacement. Condition is Stable. Forms are Medication Reconciliation Form, Thank You Letter, Antibiotic Education, Prescription Opioid Use. Follow up: Private Physician; When: As needed; Reason: Recheck today's complaints, Re-evaluation by your physician. Problem is new. Symptoms have improved. rn
== END 2018-09-09 12:14 | disposition home or self-care (01) ==
LOC: ER 09:24
DX: Z43.1 Encounter for attention to gastrostomy (principal); I12.9 Hypertensive chronic kidney disease with stage 1 through stage 4 chronic kidney disease, or unspecified chronic kidney disease; N18.9 Chronic kidney disease, unspecified; I48.91 Unspecified atrial fibrillation; I50.9 Heart failure, unspecified; E78.5 Hyperlipidemia, unspecified; E03.9 Hypothyroidism, unspecified; Z88.0 Allergy status to penicillin; Z88.1 Allergy status to other antibiotic agents; Z88.5 Allergy status to narcotic agent; Z88.8 Allergy status to other drugs, medicaments and biological substances
CPT/HCPCS: 74018; 99284

== ENCOUNTER 2018-09-13 04:31 | Emergency (ER) | payer OTHER ==
--- OUTSIDE RECORDS SUMMARY | 2018-09-13 04:33 | XMS REPORT | Clinical Summary ---
:1930 [address] [facility] [employer] Address [address] [place] [address] Care Team Providers Name Role Phone Anthony Estrella Primary Care Provider Allergies Active Allergy Reactions Severity Noted Date Comments Allopurinol Analogues 05/26/2018 Ciprofloxacin 05/25/2018 Propoxyphene N-Acetaminophen 05/25/2018 Mczyxfnlymt-Qfimepff-Lzyzsbmnb 05/25/2018 Levofloxacin 05/25/2018 Penicillins Rash Low 05/25/2018 [...] Trevor Kidney stone 05/25/2018 Orders Only Jaycob Andrade, SHAYNE after 09/12/2017 Social History Tobacco Use Types Packs/Day Years [...] procedure are in the results section. after 09/12/2017 Results RHYTHM STRIP - SCAN (05/31/2018 2:55 PM CDT) Narrative Performed At TRANSFUSION SERVICE REPORT - SCAN (05/28/2018 5:54 PM CDT)Only the most recent of2 resultswithin the time period is included. Narrative Performed At XR chest 1 view portable / bedside (05/28/2018 9:35 AM CDT) Narrative Performed At FINAL REPORT [facility] Comparison: 03/31/2014 TECHNIQUE: Single view of the chest FINDINGS: Lung volumes are low. Bibasilar densities may represent atelectasis. No gross new lung parenchymal changes. Cardiac silhouette is magnified by technique. Left-sided pacing device again noted. Signed: Luciana Squires MD Report Verified Date/Time:05/28/2018 12:17:09 Reading Location: [facility] Radiology Reading Room Procedure Note Interface, External Ris In - 05/28/2018 12:19 PM CDT FINAL REPORT Comparison: 03/31/2014 TECHNIQUE: Single view of the chest FINDINGS: Lung volumes are low. Bibasilar densities may represent atelectasis. No gross new lung parenchymal changes. Cardiac silhouette is magnified by technique. Left-sided pacing device again noted. Signed: Luciana Squires MD Report Verified Date/Time: 05/28/2018 12:17:09 Reading Location: [facility] Radiology Reading Room Performing Organization Address City/[facility]/Zipcode Phone Number RIS PT/aPTT (05/28/2018 5:36 AM CDT)Only the most recent of3 resultswithin the time period is included. Protime 13.2 (H) 9.3 - 12.0 sec [facility] INR 1.2 <=5.9 [facility] PTT 37.0 (H) 23.0 - 35.0 sec [facility] Specimen Blood Narrative Performed At [facility] RECOMMENDED COUMADIN/WARFARIN INR THERAPY RANGES STANDARD DOSE: 2.0 - 3.0 Includes: PROPHYLAXIS for venous thrombosis, systemic embolization; TREATMENT for venous thrombosis and/or pulmonary embolus. HIGH RISK: Target INR is 2.5-3.5 for patients with mechanical heart valves. Final Information (Auto Output) Final Information (Auto Output) Final Information (Auto Output) Performing Organization Address City/[facility]/Zipcode Phone Number [facility] [address], [place] [id number] [phone] CBC with platelet count + automated diff [...] Blood Performing Organization Address City/State/Zipcode Phone Number [facility] [address] [place] [address] [phone] Phosphorus (05/28/2018 5:36 AM CDT)Only the most recent of3 resultswithin the time period is included. Phosphorus 1.7 (L) 2.5 - 4.5 mg/dL [facility] Specimen Blood Performing Organization Address City/[facility]/Zipcode Phone Number [facility] [address], [place] [address] [phone] Magnesium (05/28/2018 5:36 AM CDT)Only the most recent of3 resultswithin the time period is included. Magnesium 1.3 (L) 1.5 - 3.0 mg/dL [facility] Specimen Blood Performing Organization Address [facility] Phone Number [facility] [address], [place] [phone] Comprehensive metabolic panel (05/28/2018 5:36 AM CDT)Only [...] 120 (H) 98 - 106 meq/L [facility] CO2 16 (L) 20 - 29 meq/L [facility] BUN 26 10 - 26 mg/dL [facility] Creatinine 0.97 0.50 - 1.20 mg/dL [facility] Glucose 98 70 - 110 mg/dL [facility] Calcium 9.6 8.5 - 10.5 mg/dL [facility] AST 27 5 - 40 U/L [facility] ALT 33 5 - 50 U/L [facility] EGFR 54Comment: ESTIMATED GFR mL/min/1.73 sq m [facility] IS NOT ACCURATE CREATININE CLEARANCE IN PREDICTING GLOMERULAR FILTRATION RATE. ESTIMATED GFR IS NOT APPLICABLE FOR DIALYSIS PATIENTS. Specimen Blood Performing Organization Address [facility] Phone Number [facility] [address], [place] [address] [phone] Prepare plasma (05/27/2018 11:54 PM CDT) Unit ABO A Pos [facility] [place] UNIT NUMBER [id number] [facility] [place] Status TRANSFUSED [facility] [place] Blood Bank Product FFP [facility] [place] PRODUCT CODE [id number] [facility] [place] Specimen Blood Performing Organization Address City/[facility] Phone Number [facility] Prothrombin time/INR (05/27/2018 4:55 AM CDT)Only the most recent of2 resultswithin the time period is included. Protime 20.5 (H) 9.3 - 12.0 seconds [facility] INR 1.9 <=5.9 [facility] Specimen Blood Narrative Performed At [facility] RECOMMENDED COUMADIN/WARFARIN INR THERAPY RANGES STANDARD DOSE: 2.0 - 3.0 Includes: PROPHYLAXIS for venous thrombosis, systemic embolization; TREATMENT for venous thrombosis and/or pulmonary embolus. HIGH RISK: Target INR is 2.5-3.5 for patients with mechanical heart valves. Performing Organization Address City/[facility] Phone Number [facility] [address] [place] [address] Occult blood, stool (05/26/2018 6:02 PM CDT) Occult blood Positive (A) Negative [facility] Specimen Stool - Per Rectum Performing Organization Address [facility] Number [address] [phone] Transfuse plasma (05/26/2018 9:14 AM CDT)Only the most recent of2 resultswithin the time period is included.Troponin I (05/26/2018 3:53 AM CDT) Troponin I 0.23 (HH) 0.00 - 0.15 ng/mL [facility] Specimen Blood - Line, Venous Narrative Performed At [facility] Troponin I (TnI) levels must be [...] disease, and persistent tachyarrhythmia. Performing Organization Address [facility] Phone Number [facility] [address], [place] [address] [phone] Type and screen (05/26/2018 3:18 AM CDT) Ab Scrn NEGATIVE [facility] ABO Grouping A [facility] Rh Factor POS [facility] Specimen Blood - Line, Venous Performing Organization Address City/[facility] Phone Number [facility] [address] [place], [place] [phone] [facility] B-type Natriuretic Factor (BNP) (05/26/2018 3:18 AM CDT) BNP 736 (H) 0 - 100 pg/mL [facility] Specimen Blood - Line, Venous Performing Organization Address [facility] Phone Number [facility] [address], [place] [phone] Urinalysis w/ Microscopic (05/26/2018 1:50 AM CDT) Color, UA Yellow [facility] Clarity, UA Slightly Cloudy [facility] Specific Bud, UA 1.015 1.001 - 1.035 [facility] pH, UA 8.0 5.0 - 8.0 [facility] Protein, UA 100 mg/dL (A) Negative [facility] Glucose, UA Negative Negative [facility] Ketones, UA Trace (A) Negative [facility] Bilirubin, UA Positive (A) Negative [facility] Blood, UA Large (A) Negative [facility] Nitrite, UA Positive (A) Negative [facility] Leukocytes, UA Large (A) Negative [facility] Urobilinogen, UA 1.0 0.2 - 1.0 mg/dL [facility] Bacteria, UA Many [facility] RBC, UA >100 /HPF [facility] WBC, UA 50-100 /HPF [facility] SQUAMOUS EPITHELIAL 5-10 /HPF [facility] Specimen Source [facility] Specimen Urine - Urine, Don Performing Organization Address [facility] Phone Number [facility] [address], [place] [address] [phone] Basic metabolic panel (05/26/2018 1:48 AM CDT) Sodium 145 135 - 148 meq/L [facility] Potassium 4.4Comment: Specimen moderately 3.6 - 5.5 meq/L [facility] hemolyzed Chloride 118 (H) 98 - 106 meq/L [facility] CO2 15 (L) 20 - 29 meq/L [facility] BUN 51 (H) 10 - 26 mg/dL [facility] Creatinine 1.37 (H)Comment: Specimen 0.50 - 1.20 mg/dL [facility] moderately hemolyzed Glucose 106 70 - 110 mg/dL [facility] Calcium 11.8 (H) 8.5 - 10.5 mg/dL [facility] EGFR 36Comment: ESTIMATED GFR IS NOT mL/min/1.73 sq m [facility] ACCURATE CREATININE CLEARANCE IN PREDICTING GLOMERULAR FILTRATION RATE. ESTIMATED GFR IS NOT APPLICABLE FOR DIALYSIS PATIENTS. Specimen Blood - Arm, Left Performing Organization Address [facility] Phone Number [facility] [address], [place] [phone] Urine culture (05/26/2018 1:08 AM CDT) Result (A) [facility] Specimen Urine - Urine, Clean Catch [...] + Sulfamethoxazole <=20: Susceptible Performing Organization Address [facility] Phone Number [facility] [address], [place] [phone] after 09/12/2017 Insurance Payer Benefit Plan / Group Subscriber ID Type Phone Address MEDICARE MEDICARE A B xxxxxxxxxx Medicare MCR [employer] SENIOR SUPPLEMENTAL xxxxxxxxxx SUPPLEMENT/INDIVIDUAL (Home) [place] [address] Advance Directives Patient has advance care planning documents, and code status on file. For more information, please contact:[address] [phone] Code Status Date Activated Date Inactivated Comments Full Code 05/26/2018 12:08 AM 05/28/2018 9:10 PM This code status was determined by: Patient
--- OUTSIDE RECORDS SUMMARY | 2018-09-13 04:33 | XMS REPORT ---
:1930 [facility] [address] [place] [address] Care Team Providers Name Role Phone GAUDENCIO CONNELLY Unavailable Unavailable Problems This patient has no known problems. Allergies, Adverse Reactions, Alerts This patient has no known allergies or adverse reactions. Medications This patient has no known medications. Results Test Description Test Time Test Comments Text Results Atomic Results Result Comments URINE CULTURE 2018-05-29 08:41:00 Test Item Value Reference Range Comments CULTURE (BEAKER) (test igcy=6787) PROTEUS MIRABILIS >100,000 col/mL Proteus mirabilis Amikacin (test code=1) Ampicillin + Sulbactam (test code=6) Aztreonam (test code=32) Cefazolin (test code=9) Cefepime (test code=51) Cefoxitin (test code=68) Ceftazidime (test code=27) Ceftriaxone (test code=52) Ertapenem (test code=38) Gentamicin (test code=18) Levofloxacin (test code=22) Meropenem (test code=34) Nitrofurantoin (test code=23) Piperacillin + Tazobactam (test code=29) Tetracycline (test code=2) Tigecycline (test vhzu=634) Tobramycin (test code=25) Trimethoprim + Sulfamethoxazole (test code=47) RAD, CHEST, 1 VIEW, NON [id number] 12:17:00Reason for exam:-> pneumoniaShould this be performed at the bedside?->YesFINAL REPORT Comparison: 03/31/2014 TECHNIQUE: Single view of the chest FINDINGS : Lung volumes are low. Bibasilar densities may represent atelectasis. No gross new lung parenchymal changes. Cardiac silhouette is magnified by technique. Left -sided pacing device again noted. Signed: Luciana Squires MDReport Verified Date/ Time: 05/28/2018 12:17:09 Reading Location: [facility] Radiology Reading Room COMPREHENSIVE METABOLIC [id number] 06:24:00 Test Item Value Reference Range Comments TOTAL PROTEIN (BEAKER) 4.8 gm/dL 6.0-8.5 (test aejk=472) ALBUMIN (BEAKER) (test 2.5 g/dL 3.5-5.0 kszl=4646) ALKALINE PHOSPHATASE 129 U/L 30-115 (BEAKER) (test lzpw=907) BILIRUBIN TOTAL (BEAKER) 0.5 mg/dL 0.1-1.2 (test aggc=217) SODIUM (BEAKER) (test 144 meq/L 135-148 wxrg=847) POTASSIUM (BEAKER) (test 3.3 meq/L 3.6-5.5 ffie=066) CHLORIDE (BEAKER) (test 120 meq/L 98-106 hxhc=779) CO2 (BEAKER) (test 16 meq/L 20-29 edye=718) BLOOD UREA NITROGEN 26 mg/dL 10-26 (BEAKER) (test fwjl=993) CREATININE (BEAKER) (test 0.97 mg/dL 0.50-1.20 jbll=427) GLUCOSE RANDOM (BEAKER) 98 mg/dL 70-110 (test qerq=705) CALCIUM (BEAKER) (test 9.6 mg/dL 8.5-10.5 tkjq=770) AST (SGOT) (BEAKER) (test 27 U/L 5-40 ifqk=664) ALT (SGPT) (BEAKER) (test 33 U/L 5-50 rtry=793) EGFR (BEAKER) (test 54 mL/min/1.73 sq m ESTIMATED GFR IS NOT rccg=5098) ACCURATE CREATININE CLEARANCE IN PREDICTING GLOMERULAR FILTRATION RATE. ESTIMATED GFR IS NOT APPLICABLE FOR DIALYSIS PATIENTS. [id number] 06:15:00 Test Item Value Reference Range Comments PHOSPHORUS (BEAKER) (test leta=125) 1.7 mg/dL 2.5-4.5 [id number] 06:10:00 Test Item Value Reference Range Comments MAGNESIUM (BEAKER) (test zfzo=037) 1.3 mg/dL 1.5-3.0 [id number] 06:00:00 Test Item Value Reference Range Comments PROTIME (BEAKER) (test qrxl=378) 13.2 sec 9.3-12.0 INR (BEAKER) (test vuep=273) 1.2 <=5.9 PARTIAL THROMBOPLASTIN TIME (BEAKER) (test 37.0 sec 23.0-35.0 jjmi=911) RECOMMENDED COUMADIN/WARFARIN INR THERAPY RANGESSTANDARD DOSE: 2.0 - 3.0 Includes: PROPHYLAXIS forvenous thrombosis, systemic embolization; TREATMENT for venous thrombosis and/or pulmonary embolus.HIGH RISK: Target INR is 2.5-3.5 for patients with mechanical heart valves.Final Information (Auto Output)Final Information (Auto Output)Final Information (Auto Output)CBC W/PLT COUNT & AUTO [id number] 05:55:00 Test Item Value Reference Range Comments WHITE BLOOD CELL COUNT (BEAKER) (test cwaz=979) 8.0 K/ L 4.0-10.0 RED BLOOD CELL COUNT (BEAKER) (test rojp=498) 3.56 M/ L 4.00-5.00 HEMOGLOBIN (BEAKER) (test ipce=499) 11.5 GM/DL 12.0-15.0 HEMATOCRIT (BEAKER) (test kzzw=464) 34.5 % 36.0-45.0 MEAN CORPUSCULAR VOLUME (BEAKER) (test oyqi=773) 96.8 fL 82.0-99.0 MEAN CORPUSCULAR HEMOGLOBIN (BEAKER) (test 32.2 pg 27.0-33.0 fwff=718) MEAN CORPUSCULAR HEMOGLOBIN CONC (BEAKER) (test 33.3 GM/DL 32.0-36.0 tmoo=938) RED CELL DISTRIBUTION WIDTH (BEAKER) (test 14.6 % 10.3-14.2 iwuh=568) PLATELET COUNT (BEAKER) (test yduu=096) 103 K/CU MM 150-430 MEAN PLATELET VOLUME (BEAKER) (test qwle=522) 11.0 fL 6.5-10.5 NUCLEATED RED BLOOD CELLS (BEAKER) (test 0 /100 WBC 0-0 lpxw=009) NEUTROPHILS RELATIVE PERCENT (BEAKER) (test 70 % ohoe=113) LYMPHOCYTES RELATIVE PERCENT (BEAKER) (test 15 % dvga=889) MONOCYTES RELATIVE PERCENT (BEAKER) (test 12 % qngt=938) EOSINOPHILS RELATIVE PERCENT (BEAKER) (test 2 % lrwj=804) BASOPHILS RELATIVE PERCENT (BEAKER) (test 1 % xwrg=402) NEUTROPHILS ABSOLUTE COUNT (BEAKER) (test 5.60 K/ L 1.80-8.00 whvh=234) LYMPHOCYTES ABSOLUTE COUNT (BEAKER) (test 1.20 K/ L 1.48-4.50 osbg=980) MONOCYTES ABSOLUTE COUNT (BEAKER) (test 1.00 K/ L 0.00-1.30 rnsx=502) EOSINOPHILS ABSOLUTE COUNT (BEAKER) (test 0.20 K/ L 0.00-0.50 ylff=163) BASOPHILS ABSOLUTE COUNT (BEAKER) (test 0.00 K/ L 0.00-0.20 sqxu=927) [id number] 06:06:00 Test Item Value Reference Range Comments PHOSPHORUS (BEAKER) (test 1.3 mg/dL 2.5-4.5 Specimen slightly hemolyzed uptp=412) [id number] 05:52:00 Test Item Value Reference Range Comments PROTIME (BEAKER) (test gqde=107) 20.5 seconds 9.3-12.0 INR (BEAKER) (test vofp=500) 1.9 <=5.9 PARTIAL THROMBOPLASTIN TIME (BEAKER) (test 36.9 seconds 23.0-35.0 mlgu=323) RECOMMENDED COUMADIN/WARFARIN INR THERAPY RANGESSTANDARD DOSE: 2.0 - 3.0 Includes: PROPHYLAXIS forvenous thrombosis, systemic embolization; TREATMENT for venous thrombosis and/or pulmonary embolus.HIGH RISK: Target INR is 2.5-3.5 for patients with mechanical heart valves.PROTHROMBIN [id number] 05:52: 00 Test Item Value Reference Range Comments PROTIME (BEAKER) (test bbgn=538) 20.5 seconds 9.3-12.0 INR (BEAKER) (test bbai=376) 1.9 <=5.9 RECOMMENDED COUMADIN/WARFARIN INR THERAPY RANGESSTANDARD DOSE: 2.0 - 3.0 Includes: PROPHYLAXIS forvenous thrombosis, systemic embolization; TREATMENT for venous thrombosis and/or pulmonary embolus.HIGH RISK: Target INR is 2.5-3.5 for patients with mechanical heart valves.COMPREHENSIVE METABOLIC [id number] 05:34:00 Test Item Value Reference Range Comments TOTAL PROTEIN (BEAKER) 5.8 gm/dL 6.0-8.5 Specimen slightly (test lucq=223) hemolyzed ALBUMIN (BEAKER) (test 3.0 g/dL 3.5-5.0 Specimen slightly bqig=7407) hemolyzed ALKALINE PHOSPHATASE 155 U/L 30-115 (BEAKER) (test rpnr=173) BILIRUBIN TOTAL (BEAKER) 0.5 mg/dL 0.1-1.2 Specimen slightly (test fwqv=274) hemolyzed SODIUM (BEAKER) (test 147 meq/L 135-148 kmkh=094) POTASSIUM (BEAKER) (test 3.1 meq/L 3.6-5.5 Specimen slightly rgxh=427) hemolyzed CHLORIDE (BEAKER) (test 118 meq/L 98-106 filo=542) CO2 (BEAKER) (test 18 meq/L 20-29 urfp=510) BLOOD UREA NITROGEN 35 mg/dL 10-26 (BEAKER) (test bjka=449) CREATININE (BEAKER) (test 1.09 mg/dL 0.50-1.20 Specimen slightly lgtp=964) hemolyzed GLUCOSE RANDOM (BEAKER) 99 mg/dL 70-110 (test xwna=834) CALCIUM (BEAKER) (test 11.0 mg/dL 8.5-10.5 hhre=954) AST (SGOT) (BEAKER) (test 37 U/L 5-40 Specimen slightly viic=725) hemolyzed ALT (SGPT) (BEAKER) (test 51 U/L 5-50 Specimen slightly psgg=411) hemolyzed EGFR (BEAKER) (test 47 mL/min/1.73 sq m ESTIMATED GFR IS NOT ksjs=6944) ACCURATE CREATININE CLEARANCE IN PREDICTING GLOMERULAR FILTRATION RATE. ESTIMATED GFR IS NOT APPLICABLE FOR DIALYSIS PATIENTS. [id number] 05:25:00 Test Item Value Reference Range Comments MAGNESIUM (BEAKER) (test 1.6 mg/dL 1.5-3.0 Specimen slightly hemolyzed vshc=165) CBC W/PLT COUNT & AUTO [id number] 05:13:00 Test Item Value Reference Range Comments WHITE BLOOD CELL COUNT (BEAKER) (test uqna=008) 12.9 K/ L 4.0-10.0 RED BLOOD CELL COUNT (BEAKER) (test xjvl=028) 4.03 M/ L 4.00-5.00 HEMOGLOBIN (BEAKER) (test jjgf=055) 12.9 GM/DL 12.0-15.0 HEMATOCRIT (BEAKER) (test ates=635) 38.8 % 36.0-45.0 MEAN CORPUSCULAR VOLUME (BEAKER) (test sajy=858) 96.3 fL 82.0-99.0 MEAN CORPUSCULAR HEMOGLOBIN (BEAKER) (test 31.9 pg 27.0-33.0 hbiq=462) MEAN CORPUSCULAR HEMOGLOBIN CONC (BEAKER) (test 33.2 GM/DL 32.0-36.0 ynal=591) RED CELL DISTRIBUTION WIDTH (BEAKER) (test 14.5 % 10.3-14.2 osax=240) PLATELET COUNT (BEAKER) (test pgih=189) 164 K/CU MM 150-430 MEAN PLATELET VOLUME (BEAKER) (test ldkk=487) 11.5 fL 6.5-10.5 NUCLEATED RED BLOOD CELLS (BEAKER) (test 0 /100 WBC 0-0 kiwm=282) NEUTROPHILS RELATIVE PERCENT (BEAKER) (test 79 % ihqg=789) LYMPHOCYTES RELATIVE PERCENT (BEAKER) (test 9 % yxab=107) MONOCYTES RELATIVE PERCENT (BEAKER) (test 10 % yvsb=866) EOSINOPHILS RELATIVE PERCENT (BEAKER) (test 1 % nrdm=811) BASOPHILS RELATIVE PERCENT (BEAKER) (test 0 % ergu=720) NEUTROPHILS ABSOLUTE COUNT (BEAKER) (test 10.20 K/ L 1.80-8.00 silw=330) LYMPHOCYTES ABSOLUTE COUNT (BEAKER) (test 1.20 K/ L 1.48-4.50 vjdp=490) MONOCYTES ABSOLUTE COUNT (BEAKER) (test 1.30 K/ L 0.00-1.30 feuy=464) EOSINOPHILS ABSOLUTE COUNT (BEAKER) (test 0.10 K/ L 0.00-0.50 udjw=688) BASOPHILS ABSOLUTE COUNT (BEAKER) (test 0.00 K/ L 0.00-0.20 rlkv=649) OCCULT BLOOD, [id number] 18:13:00 Test Item Value Reference Range Comments FECAL OCCULT BLOOD (BEAKER) (test jnst=787) Positive Negative PROTHROMBIN [id number] 16:59:00 Test Item Value Reference Range Comments PROTIME (BEAKER) (test inyy=741) 70.5 sec 9.3-12.0 INR (BEAKER) (test zrqd=532) 7.2 <=5.9 RECOMMENDED COUMADIN/WARFARIN INR THERAPY RANGESSTANDARD DOSE: 2.0 - 3.0 Includes: PROPHYLAXIS forvenous thrombosis, systemic embolization; TREATMENT for venous thrombosis and/or pulmonary embolus.HIGH RISK: Target INR is 2.5-3.5 for patients with mechanical heart valves.Final Information (Auto Output)Final Information (Auto Output)TROPONIN [id number] 05:46:00 Test Item Value Reference Range Comments TROPONIN I (BEAKER) (test nthn=389) 0.23 ng/mL 0.00-0.15 Troponin I (TnI) levels [...] NATRIURETIC PEPTIDE (BEAKER) (test 736 pg/mL 0-100 qbbs=973) CBC W/PLT COUNT & AUTO [id number] 04:08:00 Test Item Value Reference Range Comments WHITE BLOOD CELL COUNT (BEAKER) (test qppt=066) 12.3 K/ L 4.0-10.0 RED BLOOD CELL COUNT (BEAKER) (test cwnu=769) 4.41 M/ L 4.00-5.00 HEMOGLOBIN (BEAKER) (test lruz=178) 13.0 GM/DL 12.0-15.0 HEMATOCRIT (BEAKER) (test watb=574) 42.0 % 36.0-45.0 MEAN CORPUSCULAR VOLUME (BEAKER) (test kgez=724) 95.2 fL 82.0-99.0 MEAN CORPUSCULAR HEMOGLOBIN (BEAKER) (test 29.5 pg 27.0-33.0 qvxi=945) MEAN CORPUSCULAR HEMOGLOBIN CONC (BEAKER) (test 31.0 GM/DL 32.0-36.0 zkon=872) RED CELL DISTRIBUTION WIDTH (BEAKER) (test 13.6 % 10.3-14.2 jyrv=703) PLATELET COUNT (BEAKER) (test kdzx=109) 181 K/CU MM 150-430 MEAN PLATELET VOLUME (BEAKER) (test dpyr=066) 12.5 fL 6.5-10.5 NEUTROPHILS RELATIVE PERCENT (BEAKER) (test 79 % deel=400) LYMPHOCYTES RELATIVE PERCENT (BEAKER) (test 10 % ullr=383) MONOCYTES RELATIVE PERCENT (BEAKER) (test 11 % aafh=564) EOSINOPHILS RELATIVE PERCENT (BEAKER) (test 0 % gqfh=549) BASOPHILS RELATIVE PERCENT (BEAKER) (test 0 % zwev=891) NEUTROPHILS ABSOLUTE COUNT (BEAKER) (test 9.60 K/ L 1.80-8.00 xyae=203) LYMPHOCYTES ABSOLUTE COUNT (BEAKER) (test 1.30 K/ L 1.48-4.50 ztkd=693) MONOCYTES ABSOLUTE COUNT (BEAKER) (test 1.30 K/ L 0.00-1.30 wnan=274) EOSINOPHILS ABSOLUTE COUNT (BEAKER) (test 0.00 K/ L 0.00-0.50 oosm=204) BASOPHILS ABSOLUTE COUNT (BEAKER) (test 0.00 K/ L 0.00-0.20 uiyx=866) [id number] 02:35:00 Test Item Value Reference Range Comments PHOSPHORUS (BEAKER) (test 1.4 mg/dL 2.5-4.5 Specimen moderately hemolyzed crxc=498) BASIC METABOLIC [id number] 02:34:00 Test Item Value Reference Range Comments SODIUM (BEAKER) (test 145 meq/L 135-148 yoyn=786) POTASSIUM (BEAKER) (test 4.4 meq/L 3.6-5.5 Specimen moderately duls=097) hemolyzed CHLORIDE (BEAKER) (test 118 meq/L 98-106 jijw=263) CO2 (BEAKER) (test 15 meq/L 20-29 zepb=933) BLOOD UREA NITROGEN 51 mg/dL 10-26 (BEAKER) (test cjch=005) CREATININE (BEAKER) (test 1.37 mg/dL 0.50-1.20 Specimen moderately ylqb=918) hemolyzed GLUCOSE RANDOM (BEAKER) 106 mg/dL 70-110 (test xdga=702) CALCIUM (BEAKER) (test 11.8 mg/dL 8.5-10.5 lund=592) EGFR (BEAKER) (test 36 mL/min/1.73 sq m ESTIMATED GFR IS NOT krgb=6577) ACCURATE CREATININE CLEARANCE IN PREDICTING GLOMERULAR FILTRATION RATE. ESTIMATED GFR IS NOT APPLICABLE FOR DIALYSIS PATIENTS. [id number] 02:20:00 Test Item Value Reference Range Comments MAGNESIUM (BEAKER) (test 2.4 mg/dL 1.5-3.0 Specimen moderately hemolyzed nxif=949) [id number] 02:20:00 Test Item Value Reference Range Comments PROTIME (BEAKER) (test oecn=839) 76.0 sec 9.3-12.0 INR (BEAKER) (test tpwn=842) 7.8 <=5.9 PARTIAL THROMBOPLASTIN TIME (BEAKER) (test 63.2 sec 23.0-35.0 olhv=648) RECOMMENDED COUMADIN/WARFARIN INR THERAPY RANGESSTANDARD DOSE: 2.0 - 3.0 Includes: PROPHYLAXIS forvenous thrombosis, systemic embolization; TREATMENT for venous thrombosis and/or pulmonary embolus.HIGH RISK: Target INR is 2.5-3.5 for patients with mechanical heart valves.Final Information (Auto Output)Final Information (Auto Output)Final Information (Auto Output)URINALYSIS W/ [id number] 02:19:00 Test Item Value Reference Range Comments COLOR (BEAKER) (test zigt=811) Yellow CLARITY (BEAKER) (test qcts=597) Slightly Cloudy SPECIFIC GRAVITY UA (BEAKER) (test kxev=293) 1.015 1.001-1.035 PH UA (BEAKER) (test nvpf=731) 8.0 5.0-8.0 PROTEIN UA (BEAKER) (test wlrq=690) 100 mg/dL Negative GLUCOSE UA (BEAKER) (test nqhu=883) Negative Negative KETONES UA (BEAKER) (test pgnp=498) Trace Negative BILIRUBIN UA (BEAKER) (test aydx=670) Positive Negative BLOOD UA (BEAKER) (test ofdd=166) Large Negative NITRITE UA (BEAKER) (test pxoq=218) Positive Negative LEUKOCYTE ESTERASE UA (BEAKER) (test Large Negative smdn=360) UROBILINOGEN UA (BEAKER) (test vxig=577) 1.0 mg/dL 0.2-1.0 BACTERIA (BEAKER) (test iyfj=139) Many RBC UA-MANUAL (BEAKER) (test boxx=1218) >100 /HPF WBC UA-MANUAL (BEAKER) (test cgnn=8142) 50-100 /HPF SQUAMOUS EPITHELIAL MANUAL (BEAKER) (test 5-10 /HPF dlpj=3458) SOURCE(BEAKER) (test ivsr=5285)
--- NOTE | 2018-09-13 04:59 | ER ---
Nurse's Notes [facility] Name: Sally Suárez Age: 88 yrs Sex: Female : 1930 Arrival Date: 09/13/2018 Time: 04:32 Bed 6 Private MD: Diagnosis: Gastrostomy complication, unspecified;Gastrostomy status Presentation: 09/13 04:37 Presenting complaint: EMS states: for PEG Tube Replacement. the PEG tube dislodged and rr5 found at bedside around 0330H today. Transition of care: patient was received from another setting of care (long-term care facility), [facility]. Onset of symptoms was September 13, 2018. Risk Assessment: Do you want to hurt yourself or someone else? Unable to obtain. Initial Sepsis Screen: Does the patient meet any 2 criteria? No. Patient's initial sepsis screen is negative. Does the patient have a suspected source of infection? No. Patient's initial sepsis screen is negative. Care prior to arrival: None. 04:37 Method Of Arrival: EMS: [facility] rr5 04:37 Acuity: LORE 4 rr5 Triage Assessment: 04:48 General: Appears in no apparent distress. comfortable, Behavior is calm. Pain: Unable rr5 to use pain scale. Patient is disoriented. EENT: No deficits noted. Neuro: Level of Consciousness is awake, disoriented. Oriented to none disoriented. Cardiovascular: Capillary refill < 3 seconds Patient's skin is warm and dry. Respiratory: Airway is patent. GI: Abdomen is round : No deficits noted. Derm: No deficits noted. Skin is intact, Skin is dry, Skin is pink, warm \\T\\ dry. Musculoskeletal: Capillary refill < 3 seconds. Historical: - Allergies: 04:46 Allopurinol; rr5 04:46 Ciprofloxacin; rr5 04:46 Darvon; rr5 04:46 Demerol; rr5 04:46 HYDRALAZINE; rr5 04:46 Hydrochlorothiazide; rr5 04:46 Levaquin; rr5 04:46 PENICILLINS; rr5 04:46 reserpine; rr5 - Home Meds: 04:46 acetaminophen-codeine 300-30 mg Oral tab 1 tab every 6 hours [Active]; apixaban 2.5 mg rr5 Oral 1 tab twice a day [Active]; atorvastatin 20 mg Oral tab 1 tab nightly [Active]; cyclosporine 0.05 % ophthalmic 1 mL every 12 hours for in both eyes [Active]; donepezil 10 mg Oral tab 1 tab nightly [Active]; escitalopram oxalate 20 mg Oral tab 1 tab nightly [Active]; levothyroxine 100 mcg tab 1 tab once daily [Active]; lorazepam 0.5 mg Oral tab 1 tab every 6 hours [Active]; Metoprolol Tartrate 12.5 MG Oral 2 times per day [Active]; sucralfate 1 gram Oral tab 1 tab three times a day [Active]; tramadol 50 mg Oral tab 1 tab every 6 hours [Active]; Uloric 40 mg Oral tab 1 tab once daily [Active]; - PMHx: 04:46 "chronic kidney disease"; "cognitive communication deficit"; "heart failure"; Anxiety; rr5 Anemia; Atrial Fib; CHF; Dementia; Depression; DYSPHAGIA; Hyperlipidemia; GERD; Hypothyroidism; Hypertension; UTI; - PSHx: 04:47 G-tube placement; rr5 - Immunization history:: Adult Immunizations unknown. - Social history:: Smoking status: unknown. - Ebola Screening: : Unable to complete screening because patient is disoriented, . - Family history:: not pertinent. Screenin:18 Abuse screen: Denies threats or abuse. Denies injuries from another. Nutritional rr5 screening: No deficits noted. Tuberculosis screening: No symptoms or risk factors identified. Fall Risk Secondary diagnosis (15 points) Ambulatory Aid- None/Bed Rest/Nurse Assist (0 pts). Mental Status- Overestimates/Forgets Limitations (15 pts.). Total Carson Fall Scale indicates Low Risk Score (25-44 pts). Fall prevention measures have been instituted. Side Rails Up X 2 Frequent Obs/Assesments occuring. Assessment: 04:59 General: Appears in no apparent distress. disoriented. Behavior is calm. Pain: Unable rr5 to use pain scale. Patient is disoriented. Neuro: Level of Consciousness is awake, Oriented to disoriented. Cardiovascular: Capillary refill < 3 seconds Patient's skin is warm and dry. Respiratory: Airway is patent Respiratory effort is even, unlabored, Respiratory pattern is regular, symmetrical. GI: Abdomen is round is clean and dry. PEG ostomy. : No deficits noted. EENT: No deficits noted. Derm: Skin is intact, Skin is dry, Skin is pink, warm \\T\\ dry. Musculoskeletal: Capillary refill < 3 seconds. 05:10 Reassessment: Xray done post reinsertion of PEG tube. rr5 05:48 Reassessment: abdominal xray confirmed the placement of the tube and discharged by rr5 .[facility] staff tamera informed patient is discharged and to arranged service to pick her up. Vital Signs: 04:40 BP 103 / 80; Pulse 65; Resp 18; Temp 97.4(A); Pulse Ox 98% on R/A; rr5 06:00 BP 105 / 75; Pulse 66; Resp 17; Temp 97.6; Pulse Ox 98% on R/A; rr5 ED Course: 04:32 Patient arrived in ED. al2 04:33 Abdiaziz Calvillo MD is Attending Physician. juan 04:36 Case Staples, RN is Primary Nurse. rr5 04:41 Triage completed. rr5 04:57 Kandi Soto MD is Referral Physician. juan 04:58 Arm band placed on left wrist. rr5 05:00 PEG tube reinsertion using kazakh [address] calvillo aseptically. rr5 05:17 X-ray completed. Portable x-ray completed in exam room. Patient tolerated procedure kw well. 05:18 ENTEROSTOMY TUBE CHECK W/CONTR In Process Unspecified. EDMS 05:23 Patient did not have IV access during this emergency room visit. rr5 05:30 Patient has correct armband on for positive identification. Bed in low position. rr5 Administered Medications: No medications were administered Outcome: 04:58 Discharge ordered by . juan 06:20 Discharged to correction. Report called to tamera rr5 06:20 Condition: stable 06:20 Discharge instructions given to correction, Demonstrated understanding of instructions, follow-up care. 06:56 Patient left the ED. rr5 Signatures: Dispatcher [employer] EDNC Abdiaziz Calvillo MD MD cha Whitley, Kimberlee kw Love, Angelica al2 Case Staples, RN RN rr5
--- NOTE | 2018-09-13 04:59 | EDPHYS ---
Physician Documentation [facility] Name: Sally Suárez Age: 88 yrs Sex: Female : 1930 Arrival Date: 09/13/2018 Time: 04:32 Bed 6 Private MD: ED Physician Abdiaziz Calvillo HPI: 09/13 04:53 This 88 yrs old Female presents to ER via EMS with complaints of peg removed. juan 04:53 The patient presents with abdominal pain in the epigastric area. Onset: The juan symptoms/episode began/occurred just prior to arrival. The symptoms do not radiate. Associated signs and symptoms: none. Modifying factors: The symptoms are alleviated by nothing, the symptoms are aggravated by nothing. Severity of pain: At its worst the pain was mild. The patient has experienced similar episodes in the past, a few times. Historical: - Allergies: 04:46 Allopurinol; rr5 04:46 Ciprofloxacin; rr5 04:46 Darvon; rr5 04:46 Demerol; rr5 04:46 HYDRALAZINE; rr5 04:46 Hydrochlorothiazide; rr5 04:46 Levaquin; rr5 04:46 PENICILLINS; rr5 04:46 reserpine; rr5 - Home Meds: 04:46 acetaminophen-codeine 300-30 mg Oral tab 1 tab every 6 hours [Active]; apixaban 2.5 mg rr5 Oral 1 tab twice a day [Active]; atorvastatin 20 mg Oral tab 1 tab nightly [Active]; cyclosporine 0.05 % ophthalmic 1 mL every 12 hours for in both eyes [Active]; donepezil 10 mg Oral tab 1 tab nightly [Active]; escitalopram oxalate 20 mg Oral tab 1 tab nightly [Active]; levothyroxine 100 mcg tab 1 tab once daily [Active]; lorazepam 0.5 mg Oral tab 1 tab every 6 hours [Active]; Metoprolol Tartrate 12.5 MG Oral 2 times per day [Active]; sucralfate 1 gram Oral tab 1 tab three times a day [Active]; tramadol 50 mg Oral tab 1 tab every 6 hours [Active]; Uloric 40 mg Oral tab 1 tab once daily [Active]; - PMHx: 04:46 "chronic kidney disease"; "cognitive communication deficit"; "heart failure"; Anxiety; rr5 Anemia; Atrial Fib; CHF; Dementia; Depression; DYSPHAGIA; Hyperlipidemia; GERD; Hypothyroidism; Hypertension; UTI; - PSHx: 04:47 G-tube placement; rr5 - Immunization history:: Adult Immunizations unknown. - Social history:: Smoking status: unknown. - Ebola Screening: : Unable to complete screening because patient is disoriented, . - Family history:: not pertinent. ROS: 04:53 Constitutional: Negative for fever, chills, and weight loss, Eyes: Negative for injury, juan pain, redness, and discharge, ENT: Negative for injury, pain, and discharge, Neck: Negative for injury, pain, and swelling, Cardiovascular: Negative for chest pain, palpitations, and edema, Respiratory: Negative for shortness of breath, cough, wheezing, and pleuritic chest pain, Back: Negative for injury and pain, : Negative for injury, bleeding, discharge, and swelling, MS/Extremity: Negative for injury and deformity, Skin: Negative for injury, rash, and discoloration, Neuro: Negative for headache, weakness, numbness, tingling, and seizure, Psych: Negative for depression, anxiety, suicide ideation, homicidal ideation, and hallucinations, Allergy/Immunology: Negative for hives, rash, and allergies, Endocrine: Negative for neck swelling, polydipsia, polyuria, polyphagia, and marked weight changes, Hematologic/Lymphatic: Negative for swollen nodes, abnormal bleeding, and unusual bruising. 04:53 Abdomen/GI: Positive for abdominal pain, of the left upper quadrant. Exam: 04:53 Constitutional: This is a well developed, well nourished patient who is awake, alert, juan and in no acute distress. Head/Face: Normocephalic, atraumatic. Eyes: Pupils equal round and reactive to light, extra-ocular motions intact. Lids and lashes normal. Conjunctiva and sclera are non-icteric and not injected. Cornea within normal limits. Periorbital areas with no swelling, redness, or edema. ENT: Nares patent. No nasal discharge, no septal abnormalities noted. Tympanic membranes are normal and external auditory canals are clear. Oropharynx with no redness, swelling, or masses, exudates, or evidence of obstruction, uvula midline. Mucous membranes moist. Neck: Trachea midline, no thyromegaly or masses palpated, and no cervical lymphadenopathy. Supple, full range of motion without nuchal rigidity, or vertebral point tenderness. No Meningismus. Chest/axilla: Normal chest wall appearance and motion. Nontender with no deformity. No lesions are appreciated. Cardiovascular: Regular rate and rhythm with a normal S1 and S2. No gallops, murmurs, or rubs. Normal PMI, no JVD. No pulse deficits. Respiratory: Lungs have equal breath sounds bilaterally, clear to auscultation and percussion. No rales, rhonchi or wheezes noted. No increased work of breathing, no retractions or nasal flaring. Back: No spinal tenderness. No costovertebral tenderness. Full range of motion. Female : Normal external genitalia. Skin: Warm, dry with normal turgor. Normal color with no rashes, no lesions, and no evidence of cellulitis. MS/ Extremity: Pulses equal, no cyanosis. Neurovascular intact. Full, normal range of motion. Neuro: Awake and alert, GCS 15, oriented to person, place, time, and situation. Cranial nerves II-XII grossly intact. Motor strength 5/5 in all extremities. Sensory grossly intact. Cerebellar exam normal. Normal gait. Psych: Awake, alert, with orientation to person, place and time. Behavior, mood, and affect are within normal limits. 04:53 Abdomen/GI: Inspection: abdomen appears normal, Bowel sounds: normal, Palpation: abdomen is soft and non-tender, Liver: no appreciated palpable abnormalities, Hernia: not appreciated, peg site without peg. Vital Signs: 04:40 BP 103 / 80; Pulse 65; Resp 18; Temp 97.4(A); Pulse Ox 98% on R/A; rr5 06:00 BP 105 / 75; Pulse 66; Resp 17; Temp 97.6; Pulse Ox 98% on R/A; rr5 MDM: 04:33 Patient medically screened. [facility] 04:53 Data reviewed: vital signs, nurses notes, radiologic studies, plain films. [facility] 09/13 05:02 Order name: ENTEROSTOMY TUBE CHECK W/CONTR EDMS Administered Medications: No medications were administered Disposition: 09/13/18 04:58 Discharged to Home. Impression: Gastrostomy complication, unspecified, Gastrostomy status. - Condition is Stable. - Discharge Instructions: Gastrostomy Tube Replacement, Gastrostomy Tube Home Guide, Adult, PEG Tube Home Guide, [id number], Gastrostomy Tube Replacement, Care After. - Medication Reconciliation Form, Thank You Letter, Antibiotic Education, Prescription Opioid Use form. - Follow up: Private Physician; When: 2 - 3 days; Reason: Recheck today's complaints, Continuance of care, Re-evaluation by your physician. Follow up: Kandi Soto MD; When: 2 - 3 days; Reason: Recheck today's complaints, Re-evaluation by your physician. - Problem is new. - Symptoms have improved. Signatures: Dispatcher [employer] [facility] Abdiaziz Calvillo MD MD cha Roque, Raymond, RN RN rr5 Corrections: (The following items were deleted from the chart) 05:02 04:57 Abdomen 1 View (KUB)+RAD.RAD.BRZ ordered. [facility] 06:56 04:58 09/13/2018 04:58 Discharged to Home. Impression: Gastrostomy complication, rr5 unspecified; Gastrostomy status. Condition is Stable. Forms are Medication Reconciliation Form, Thank You Letter, Antibiotic Education, Prescription Opioid Use. Follow up: Private Physician; When: 2 - 3 days; Reason: Recheck today's complaints, Continuance of care, Re-evaluation by your physician. Follow up: Kandi Soto; When: 2 - 3 days; Reason: Recheck today's complaints, Re-evaluation by your physician. Problem is new. Symptoms have improved. juan
[2018-09-13] MEDS ORDERED: WATER FOR INJ,STERILE 10 ML ONE (05:12)
--- NOTE | 2018-09-13 08:28 | RAD REPORT ---
EXAM DESCRIPTION: RAD - ENTEROSTOMY TUBE CHECK W/CONTR - 09/13/2018 5:21 am CLINICAL HISTORY: Abdominal pain FINDINGS: The meat hanger film demonstrates gastrostomy tube overlying the stomach. Subsequent film demons trates contrast within the stomach and duodenum. No extravasation contrast seen Peg tube in good position
== END 2018-09-13 06:56 | disposition home or self-care (01) ==
LOC: ER 04:31
DX: K94.20 Gastrostomy complication, unspecified (principal); D64.9 Anemia, unspecified; E03.9 Hypothyroidism, unspecified; E78.5 Hyperlipidemia, unspecified; I48.91 Unspecified atrial fibrillation; K21.9 Gastro-esophageal reflux disease without esophagitis; I13.0 Hypertensive heart and chronic kidney disease with heart failure and stage 1 through stage 4 chronic kidney disease, or unspecified chronic kidney disease; I50.9 Heart failure, unspecified; N18.9 Chronic kidney disease, unspecified; F03.90 Unspecified dementia, unspecified severity, without behavioral disturbance, psychotic disturbance, mood disturbance, and anxiety; F32.9 Major depressive disorder, single episode, unspecified; F41.9 Anxiety disorder, unspecified; R41.841 Cognitive communication deficit; Z79.891 Long term (current) use of opiate analgesic; Z79.899 Other long term (current) drug therapy
CPT/HCPCS: 49465; 99283

== ENCOUNTER 2018-09-13 22:21 | Emergency (ER) | payer OTHER ==
--- OUTSIDE RECORDS SUMMARY | 2018-09-13 22:23 | XMS REPORT | Clinical Summary ---
:1930 Author Organization [facility] Address [address] [place] [address] Care Team Providers Name Role Phone Anthony Estrella Primary Care Provider Allergies Active Allergy Reactions Severity Noted Date Comments Allopurinol Analogues 05/26/2018 Ciprofloxacin 05/25/2018 Propoxyphene N-Acetaminophen 05/25/2018 Ebryxylovke-Mqvamydc-Wvxryzlfe 05/25/2018 Levofloxacin 05/25/2018 Penicillins Rash Low 05/25/2018 [...] CDT) Narrative Performed At FINAL REPORT [facility] Comparison: 03/31/2014 TECHNIQUE: Single view of the chest FINDINGS: Lung volumes are low. Bibasilar densities may represent atelectasis. No gross new lung parenchymal changes. Cardiac silhouette is magnified by technique. Left-sided pacing device again noted. Signed: Luciana Squires MD Report Verified Date/Time:05/28/2018 12:17:09 Reading Location: [facility] Radiology Reading Room Procedure Note Interface, External Ris In - 05/28/2018 12:19 PM CDT FINAL REPORT Comparison: 03/31/2014 TECHNIQUE: Single view of the chest FINDINGS: Lung volumes are low. Bibasilar densities may represent atelectasis. No gross new lung parenchymal changes. Cardiac silhouette is magnified by technique. Left-sided pacing device again noted. Signed: Luciana Squires MD Report Verified Date/Time: 05/28/2018 12:17:09 Reading Location: [facility] Radiology Reading Room Performing Organization Address City/[facility]/Zipcode Phone Number RIS PT/aPTT (05/28/2018 5:36 AM CDT)Only the most recent of3 resultswithin the time period is included. Protime 13.2 (H) 9.3 - 12.0 sec [facility] INR 1.2 <=5.9 [facility] PTT 37.0 (H) 23.0 - 35.0 sec [facility] Specimen Blood Narrative Performed At [facility] RECOMMENDED COUMADIN/WARFARIN INR THERAPY RANGES STANDARD DOSE: 2.0 - 3.0 Includes: PROPHYLAXIS for venous thrombosis, systemic embolization; TREATMENT for venous thrombosis and/or pulmonary embolus. HIGH RISK: Target INR is 2.5-3.5 for patients with mechanical heart valves. Final Information (Auto Output) Final Information (Auto Output) Final Information (Auto Output) Performing Organization Address City/[facility]/Zipcode Phone Number [facility] [address] [place], [place] [phone] CBC with platelet count + automated diff [...] Blood Performing Organization Address City/State/Zipcode Phone Number [facility] [address] [place] [address] Phosphorus (05/28/2018 5:36 AM CDT)Only the most recent of3 resultswithin the time period is included. Phosphorus 1.7 (L) 2.5 - 4.5 mg/dL [facility] Specimen Blood Performing Organization Address City/[facility]/Zipcode Phone Number [facility] [address] [place], [place] [phone] Magnesium (05/28/2018 5:36 AM CDT)Only the most recent of3 resultswithin the time period is included. Magnesium 1.3 (L) 1.5 - 3.0 mg/dL [facility] Specimen Blood Performing Organization Address [facility] Phone Number [facility] [address] [place], [place] [phone] Comprehensive metabolic panel (05/28/2018 5:36 AM CDT)Only [...] 120 (H) 98 - 106 meq/L [facility] CO2 16 (L) 20 - 29 meq/L [facility] BUN 26 10 - 26 mg/dL [facility] Creatinine 0.97 0.50 - 1.20 mg/dL [facility] Glucose 98 70 - 110 mg/dL [facility] Calcium 9.6 8.5 - 10.5 mg/dL [facility] AST 27 5 - 40 U/L [facility] ALT 33 5 - 50 U/L [facility] EGFR 54Comment: ESTIMATED GFR mL/min/1.73 sq m [facility] IS NOT ACCURATE CREATININE CLEARANCE IN PREDICTING GLOMERULAR FILTRATION RATE. ESTIMATED GFR IS NOT APPLICABLE FOR DIALYSIS PATIENTS. Specimen Blood Performing Organization Address [facility] Phone Number [facility] [address] [place], [place] [phone] Prepare plasma (05/27/2018 11:54 PM CDT) Unit ABO A Pos SAFETRACE TX UNIT NUMBER [id number] SAFETRACE TX Status TRANSFUSED SAFETRACE TX Blood Bank Product FFP SAFETRACE TX PRODUCT CODE [id number] SAFET[place]ACE [place] Specimen Blood Performing Organization Address City/[facility] Phone Number [facility] [place] Prothrombin time/INR (05/27/2018 4:55 AM CDT)Only the most recent of2 resultswithin the time period is included. Protime 20.5 (H) 9.3 - 12.0 seconds [facility] INR 1.9 <=5.9 [facility] Specimen Blood Narrative Performed At [facility] RECOMMENDED COUMADIN/WARFARIN INR THERAPY RANGES STANDARD DOSE: 2.0 - 3.0 Includes: PROPHYLAXIS for venous thrombosis, systemic embolization; TREATMENT for venous thrombosis and/or pulmonary embolus. HIGH RISK: Target INR is 2.5-3.5 for patients with mechanical heart valves. Performing Organization Address City/[facility] Phone Number [facility] [address] [place] [address] [phone] Occult blood, stool (05/26/2018 6:02 PM CDT) Occult blood Positive (A) Negative [facility] Specimen Stool - Per Rectum Performing Organization Address [facility] Number [address] [id number] [phone] Transfuse plasma (05/26/2018 9:14 AM CDT)Only the most recent of2 resultswithin the time period is included.Troponin I (05/26/2018 3:53 AM CDT) Troponin I 0.23 (HH) 0.00 - 0.15 ng/mL [facility] Specimen Blood - Line, Venous Narrative Performed At [facility] Troponin I (TnI) levels must be [...] disease, and persistent tachyarrhythmia. Performing Organization Address [facility] Phone Number [facility] [address] [place], [place] [address] Type and screen (05/26/2018 3:18 AM CDT) Ab Scrn NEGATIVE [facility] ABO Grouping A [facility] Rh Factor POS [facility] Specimen Blood - Line, Venous Performing Organization Address City/[facility] Phone Number [facility] [address] [place], [place] [phone] [facility] B-type Natriuretic Factor (BNP) (05/26/2018 3:18 AM CDT) BNP 736 (H) 0 - 100 pg/mL [facility] Specimen Blood - Line, Venous Performing Organization Address [facility] Phone Number [facility] [address] [place], [place] [phone] Urinalysis w/ Microscopic (05/26/2018 1:50 AM CDT) Color, UA Yellow [facility] Clarity, UA Slightly Cloudy [facility] Specific [place], UA 1.015 1.001 - 1.035 [facility] pH, UA 8.0 5.0 - 8.0 [facility] Protein, UA 100 mg/dL (A) Negative [facility] Glucose, UA Negative Negative [facility] Ketones, UA Trace (A) Negative [facility] Bilirubin, UA Positive (A) Negative [facility] Blood, UA Large (A) Negative [facility] Nitrite, UA Positive (A) Negative [facility] Leukocytes, UA Large (A) Negative [facility] Urobilinogen, UA 1.0 0.2 - 1.0 mg/dL [facility] Bacteria, UA Many [facility] RBC, UA >100 /HPF [facility] WBC, UA 50-100 /HPF [facility] SQUAMOUS EPITHELIAL 5-10 /HPF [facility] Specimen Source [facility] Specimen Urine - Urine, Don Performing Organization Address [facility] Phone Number [facility] [address] [place], [place] [phone] Basic metabolic panel (05/26/2018 1:48 AM CDT) Sodium 145 135 - 148 meq/L [facility] Potassium 4.4Comment: Specimen moderately 3.6 - 5.5 meq/L [facility] hemolyzed Chloride 118 (H) 98 - 106 meq/L [facility] CO2 15 (L) 20 - 29 meq/L [facility] BUN 51 (H) 10 - 26 mg/dL [facility] Creatinine 1.37 (H)Comment: Specimen 0.50 - 1.20 mg/dL [facility] moderately hemolyzed Glucose 106 70 - 110 mg/dL [facility] Calcium 11.8 (H) 8.5 - 10.5 mg/dL [facility] EGFR 36Comment: ESTIMATED GFR IS NOT mL/min/1.73 sq m [facility] ACCURATE CREATININE CLEARANCE IN PREDICTING GLOMERULAR FILTRATION RATE. ESTIMATED GFR IS NOT APPLICABLE FOR DIALYSIS PATIENTS. Specimen Blood - Arm, Left Performing Organization Address [facility] Phone Number [facility] [address] [place], [place] [phone] Urine culture (05/26/2018 1:08 AM CDT) Result (A) [facility] Specimen Urine - Urine, Clean Catch [...] + Sulfamethoxazole <=20: Susceptible Performing Organization Address [facility] Phone Number [facility] [address] [place], [place] [phone] after 09/12/2017 Insurance Payer Benefit Plan / Group Subscriber ID Type Phone Address MEDICARE MEDICARE A B xxxxxxxxxx Medicare MCR [employer] SENIOR SUPPLEMENTAL xxxxxxxxxx SUPPLEMENT/INDIVIDUAL (Home) [place] [address] Advance Directives Patient has advance care planning documents, and code status on file. For more information, please contact:[address] [phone] Code Status Date Activated Date Inactivated Comments Full Code 05/26/2018 12:08 AM 05/28/2018 9:10 PM This code status was determined by: Patient
--- OUTSIDE RECORDS SUMMARY | 2018-09-13 22:23 | XMS REPORT ---
:1930 [facility] Address [address] [place] [address] Care Team Providers Name Role Phone GAUDENCIO CONNELLY Unavailable Unavailable Problems This patient has no known problems. Allergies, Adverse Reactions, Alerts This patient has no known allergies or adverse reactions. Medications This patient has no known medications. Results Test Description Test Time Test Comments Text Results Atomic Results Result Comments URINE CULTURE 2018-05-29 08:41:00 Test Item Value Reference Range Comments CULTURE (BEAKER) (test qbyk=0355) PROTEUS MIRABILIS >100,000 col/mL Proteus mirabilis Amikacin (test code=1) Ampicillin + Sulbactam (test code=6) Aztreonam (test code=32) Cefazolin (test code=9) Cefepime (test code=51) Cefoxitin (test code=68) Ceftazidime (test code=27) Ceftriaxone (test code=52) Ertapenem (test code=38) Gentamicin (test code=18) Levofloxacin (test code=22) Meropenem (test code=34) Nitrofurantoin (test code=23) Piperacillin + Tazobactam (test code=29) Tetracycline (test code=2) Tigecycline (test iorp=093) Tobramycin (test code=25) Trimethoprim + Sulfamethoxazole (test code=47) RAD, CHEST, 1 VIEW, NON [id number] 12:17:00Reason for exam:-> pneumoniaShould this be performed at the bedside?->YesFINAL REPORT Comparison: 03/31/2014 TECHNIQUE: Single view of the chest FINDINGS : Lung volumes are low. Bibasilar densities may represent atelectasis. No gross new lung parenchymal changes. Cardiac silhouette is magnified by technique. Left -sided pacing device again noted. Signed: Luciana Squires MDReport Verified Date/ Time: 05/28/2018 12:17:09 Reading Location: [facility] Radiology Reading Room COMPREHENSIVE METABOLIC [id number] 06:24:00 Test Item Value Reference Range Comments TOTAL PROTEIN (BEAKER) 4.8 gm/dL 6.0-8.5 (test wfor=173) ALBUMIN (BEAKER) (test 2.5 g/dL 3.5-5.0 zofv=2813) ALKALINE PHOSPHATASE 129 U/L 30-115 (BEAKER) (test qhnl=356) BILIRUBIN TOTAL (BEAKER) 0.5 mg/dL 0.1-1.2 (test grpn=336) SODIUM (BEAKER) (test 144 meq/L 135-148 flkp=539) POTASSIUM (BEAKER) (test 3.3 meq/L 3.6-5.5 tlne=477) CHLORIDE (BEAKER) (test 120 meq/L 98-106 lftk=944) CO2 (BEAKER) (test 16 meq/L 20-29 yapt=933) BLOOD UREA NITROGEN 26 mg/dL 10-26 (BEAKER) (test bbxz=020) CREATININE (BEAKER) (test 0.97 mg/dL 0.50-1.20 jvay=894) GLUCOSE RANDOM (BEAKER) 98 mg/dL 70-110 (test wtli=591) CALCIUM (BEAKER) (test 9.6 mg/dL 8.5-10.5 schg=303) AST (SGOT) (BEAKER) (test 27 U/L 5-40 weei=456) ALT (SGPT) (BEAKER) (test 33 U/L 5-50 gvff=604) EGFR (BEAKER) (test 54 mL/min/1.73 sq m ESTIMATED GFR IS NOT sulv=0256) ACCURATE CREATININE CLEARANCE IN PREDICTING GLOMERULAR FILTRATION RATE. ESTIMATED GFR IS NOT APPLICABLE FOR DIALYSIS PATIENTS. [id number] 06:15:00 Test Item Value Reference Range Comments PHOSPHORUS (BEAKER) (test djma=970) 1.7 mg/dL 2.5-4.5 [id number] 06:10:00 Test Item Value Reference Range Comments MAGNESIUM (BEAKER) (test pjto=898) 1.3 mg/dL 1.5-3.0 [id number] 06:00:00 Test Item Value Reference Range Comments PROTIME (BEAKER) (test fatn=599) 13.2 sec 9.3-12.0 INR (BEAKER) (test vtyc=114) 1.2 <=5.9 PARTIAL THROMBOPLASTIN TIME (BEAKER) (test 37.0 sec 23.0-35.0 tjla=124) RECOMMENDED COUMADIN/WARFARIN INR THERAPY RANGESSTANDARD DOSE: 2.0 - 3.0 Includes: PROPHYLAXIS forvenous thrombosis, systemic embolization; TREATMENT for venous thrombosis and/or pulmonary embolus.HIGH RISK: Target INR is 2.5-3.5 for patients with mechanical heart valves.Final Information (Auto Output)Final Information (Auto Output)Final Information (Auto Output)CBC W/PLT COUNT & AUTO [id number] 05:55:00 Test Item Value Reference Range Comments WHITE BLOOD CELL COUNT (BEAKER) (test nugm=531) 8.0 K/ L 4.0-10.0 RED BLOOD CELL COUNT (BEAKER) (test ykkv=637) 3.56 M/ L 4.00-5.00 HEMOGLOBIN (BEAKER) (test iszu=853) 11.5 GM/DL 12.0-15.0 HEMATOCRIT (BEAKER) (test typc=813) 34.5 % 36.0-45.0 MEAN CORPUSCULAR VOLUME (BEAKER) (test aqgh=851) 96.8 fL 82.0-99.0 MEAN CORPUSCULAR HEMOGLOBIN (BEAKER) (test 32.2 pg 27.0-33.0 oaua=695) MEAN CORPUSCULAR HEMOGLOBIN CONC (BEAKER) (test 33.3 GM/DL 32.0-36.0 mpda=057) RED CELL DISTRIBUTION WIDTH (BEAKER) (test 14.6 % 10.3-14.2 ourm=219) PLATELET COUNT (BEAKER) (test wemz=850) 103 K/CU MM 150-430 MEAN PLATELET VOLUME (BEAKER) (test bhnx=091) 11.0 fL 6.5-10.5 NUCLEATED RED BLOOD CELLS (BEAKER) (test 0 /100 WBC 0-0 cxjr=841) NEUTROPHILS RELATIVE PERCENT (BEAKER) (test 70 % ihgk=460) LYMPHOCYTES RELATIVE PERCENT (BEAKER) (test 15 % fwgz=501) MONOCYTES RELATIVE PERCENT (BEAKER) (test 12 % anui=315) EOSINOPHILS RELATIVE PERCENT (BEAKER) (test 2 % ozcj=426) BASOPHILS RELATIVE PERCENT (BEAKER) (test 1 % wkby=855) NEUTROPHILS ABSOLUTE COUNT (BEAKER) (test 5.60 K/ L 1.80-8.00 ltoq=456) LYMPHOCYTES ABSOLUTE COUNT (BEAKER) (test 1.20 K/ L 1.48-4.50 kwls=682) MONOCYTES ABSOLUTE COUNT (BEAKER) (test 1.00 K/ L 0.00-1.30 fybq=856) EOSINOPHILS ABSOLUTE COUNT (BEAKER) (test 0.20 K/ L 0.00-0.50 lohv=303) BASOPHILS ABSOLUTE COUNT (BEAKER) (test 0.00 K/ L 0.00-0.20 nnqj=016) [id number] 06:06:00 Test Item Value Reference Range Comments PHOSPHORUS (BEAKER) (test 1.3 mg/dL 2.5-4.5 Specimen slightly hemolyzed etqu=375) [id number] 05:52:00 Test Item Value Reference Range Comments PROTIME (BEAKER) (test zvto=937) 20.5 seconds 9.3-12.0 INR (BEAKER) (test sghv=513) 1.9 <=5.9 PARTIAL THROMBOPLASTIN TIME (BEAKER) (test 36.9 seconds 23.0-35.0 mcpe=637) RECOMMENDED COUMADIN/WARFARIN INR THERAPY RANGESSTANDARD DOSE: 2.0 - 3.0 Includes: PROPHYLAXIS forvenous thrombosis, systemic embolization; TREATMENT for venous thrombosis and/or pulmonary embolus.HIGH RISK: Target INR is 2.5-3.5 for patients with mechanical heart valves.PROTHROMBIN [id number] 05:52: 00 Test Item Value Reference Range Comments PROTIME (BEAKER) (test vyjx=892) 20.5 seconds 9.3-12.0 INR (BEAKER) (test ofvn=443) 1.9 <=5.9 RECOMMENDED COUMADIN/WARFARIN INR THERAPY RANGESSTANDARD DOSE: 2.0 - 3.0 Includes: PROPHYLAXIS forvenous thrombosis, systemic embolization; TREATMENT for venous thrombosis and/or pulmonary embolus.HIGH RISK: Target INR is 2.5-3.5 for patients with mechanical heart valves.COMPREHENSIVE METABOLIC [id number] 05:34:00 Test Item Value Reference Range Comments TOTAL PROTEIN (BEAKER) 5.8 gm/dL 6.0-8.5 Specimen slightly (test ggbw=413) hemolyzed ALBUMIN (BEAKER) (test 3.0 g/dL 3.5-5.0 Specimen slightly nmsp=5910) hemolyzed ALKALINE PHOSPHATASE 155 U/L 30-115 (BEAKER) (test kdep=757) BILIRUBIN TOTAL (BEAKER) 0.5 mg/dL 0.1-1.2 Specimen slightly (test pvky=466) hemolyzed SODIUM (BEAKER) (test 147 meq/L 135-148 gtnc=798) POTASSIUM (BEAKER) (test 3.1 meq/L 3.6-5.5 Specimen slightly mwkt=396) hemolyzed CHLORIDE (BEAKER) (test 118 meq/L 98-106 fixq=763) CO2 (BEAKER) (test 18 meq/L 20-29 mavl=329) BLOOD UREA NITROGEN 35 mg/dL 10-26 (BEAKER) (test brkt=079) CREATININE (BEAKER) (test 1.09 mg/dL 0.50-1.20 Specimen slightly dumj=481) hemolyzed GLUCOSE RANDOM (BEAKER) 99 mg/dL 70-110 (test vgvk=151) CALCIUM (BEAKER) (test 11.0 mg/dL 8.5-10.5 aceo=952) AST (SGOT) (BEAKER) (test 37 U/L 5-40 Specimen slightly npvl=500) hemolyzed ALT (SGPT) (BEAKER) (test 51 U/L 5-50 Specimen slightly gtpr=985) hemolyzed EGFR (BEAKER) (test 47 mL/min/1.73 sq m ESTIMATED GFR IS NOT ygyc=2307) ACCURATE CREATININE CLEARANCE IN PREDICTING GLOMERULAR FILTRATION RATE. ESTIMATED GFR IS NOT APPLICABLE FOR DIALYSIS PATIENTS. [id number] 05:25:00 Test Item Value Reference Range Comments MAGNESIUM (BEAKER) (test 1.6 mg/dL 1.5-3.0 Specimen slightly hemolyzed pdan=149) CBC W/PLT COUNT & AUTO [id number] 05:13:00 Test Item Value Reference Range Comments WHITE BLOOD CELL COUNT (BEAKER) (test biby=132) 12.9 K/ L 4.0-10.0 RED BLOOD CELL COUNT (BEAKER) (test hiiw=423) 4.03 M/ L 4.00-5.00 HEMOGLOBIN (BEAKER) (test zpqc=309) 12.9 GM/DL 12.0-15.0 HEMATOCRIT (BEAKER) (test qpdz=911) 38.8 % 36.0-45.0 MEAN CORPUSCULAR VOLUME (BEAKER) (test ndgy=150) 96.3 fL 82.0-99.0 MEAN CORPUSCULAR HEMOGLOBIN (BEAKER) (test 31.9 pg 27.0-33.0 lxiy=312) MEAN CORPUSCULAR HEMOGLOBIN CONC (BEAKER) (test 33.2 GM/DL 32.0-36.0 znlf=457) RED CELL DISTRIBUTION WIDTH (BEAKER) (test 14.5 % 10.3-14.2 mbdr=057) PLATELET COUNT (BEAKER) (test sino=416) 164 K/CU MM 150-430 MEAN PLATELET VOLUME (BEAKER) (test jrsc=148) 11.5 fL 6.5-10.5 NUCLEATED RED BLOOD CELLS (BEAKER) (test 0 /100 WBC 0-0 kszr=057) NEUTROPHILS RELATIVE PERCENT (BEAKER) (test 79 % gyqo=459) LYMPHOCYTES RELATIVE PERCENT (BEAKER) (test 9 % qgef=159) MONOCYTES RELATIVE PERCENT (BEAKER) (test 10 % rfyd=600) EOSINOPHILS RELATIVE PERCENT (BEAKER) (test 1 % lbyc=061) BASOPHILS RELATIVE PERCENT (BEAKER) (test 0 % kase=654) NEUTROPHILS ABSOLUTE COUNT (BEAKER) (test 10.20 K/ L 1.80-8.00 wqvz=077) LYMPHOCYTES ABSOLUTE COUNT (BEAKER) (test 1.20 K/ L 1.48-4.50 kavl=054) MONOCYTES ABSOLUTE COUNT (BEAKER) (test 1.30 K/ L 0.00-1.30 qusi=751) EOSINOPHILS ABSOLUTE COUNT (BEAKER) (test 0.10 K/ L 0.00-0.50 vacx=097) BASOPHILS ABSOLUTE COUNT (BEAKER) (test 0.00 K/ L 0.00-0.20 xcwd=551) OCCULT BLOOD, [id number] 18:13:00 Test Item Value Reference Range Comments FECAL OCCULT BLOOD (BEAKER) (test lhld=080) Positive Negative PROTHROMBIN [id number] 16:59:00 Test Item Value Reference Range Comments PROTIME (BEAKER) (test iqyl=390) 70.5 sec 9.3-12.0 INR (BEAKER) (test vgix=818) 7.2 <=5.9 RECOMMENDED COUMADIN/WARFARIN INR THERAPY RANGESSTANDARD DOSE: 2.0 - 3.0 Includes: PROPHYLAXIS forvenous thrombosis, systemic embolization; TREATMENT for venous thrombosis and/or pulmonary embolus.HIGH RISK: Target INR is 2.5-3.5 for patients with mechanical heart valves.Final Information (Auto Output)Final Information (Auto Output)TROPONIN [id number] 05:46:00 Test Item Value Reference Range Comments TROPONIN I (BEAKER) (test rjef=286) 0.23 ng/mL 0.00-0.15 Troponin I (TnI) levels [...] NATRIURETIC PEPTIDE (BEAKER) (test 736 pg/mL 0-100 zpez=682) CBC W/PLT COUNT & AUTO [id number] 04:08:00 Test Item Value Reference Range Comments WHITE BLOOD CELL COUNT (BEAKER) (test xyec=576) 12.3 K/ L 4.0-10.0 RED BLOOD CELL COUNT (BEAKER) (test kklf=924) 4.41 M/ L 4.00-5.00 HEMOGLOBIN (BEAKER) (test bwnr=109) 13.0 GM/DL 12.0-15.0 HEMATOCRIT (BEAKER) (test jnic=655) 42.0 % 36.0-45.0 MEAN CORPUSCULAR VOLUME (BEAKER) (test rjrj=102) 95.2 fL 82.0-99.0 MEAN CORPUSCULAR HEMOGLOBIN (BEAKER) (test 29.5 pg 27.0-33.0 vmrz=183) MEAN CORPUSCULAR HEMOGLOBIN CONC (BEAKER) (test 31.0 GM/DL 32.0-36.0 juet=319) RED CELL DISTRIBUTION WIDTH (BEAKER) (test 13.6 % 10.3-14.2 xxeu=844) PLATELET COUNT (BEAKER) (test hwcl=332) 181 K/CU MM 150-430 MEAN PLATELET VOLUME (BEAKER) (test nups=633) 12.5 fL 6.5-10.5 NEUTROPHILS RELATIVE PERCENT (BEAKER) (test 79 % cfva=009) LYMPHOCYTES RELATIVE PERCENT (BEAKER) (test 10 % xqrw=659) MONOCYTES RELATIVE PERCENT (BEAKER) (test 11 % bdxx=607) EOSINOPHILS RELATIVE PERCENT (BEAKER) (test 0 % dzdz=016) BASOPHILS RELATIVE PERCENT (BEAKER) (test 0 % szts=455) NEUTROPHILS ABSOLUTE COUNT (BEAKER) (test 9.60 K/ L 1.80-8.00 vsgx=406) LYMPHOCYTES ABSOLUTE COUNT (BEAKER) (test 1.30 K/ L 1.48-4.50 ihbr=938) MONOCYTES ABSOLUTE COUNT (BEAKER) (test 1.30 K/ L 0.00-1.30 uiez=753) EOSINOPHILS ABSOLUTE COUNT (BEAKER) (test 0.00 K/ L 0.00-0.50 vefq=040) BASOPHILS ABSOLUTE COUNT (BEAKER) (test 0.00 K/ L 0.00-0.20 fgun=876) [id number] 02:35:00 Test Item Value Reference Range Comments PHOSPHORUS (BEAKER) (test 1.4 mg/dL 2.5-4.5 Specimen moderately hemolyzed kwed=290) BASIC METABOLIC [id number] 02:34:00 Test Item Value Reference Range Comments SODIUM (BEAKER) (test 145 meq/L 135-148 jkun=273) POTASSIUM (BEAKER) (test 4.4 meq/L 3.6-5.5 Specimen moderately glpn=848) hemolyzed CHLORIDE (BEAKER) (test 118 meq/L 98-106 ahti=983) CO2 (BEAKER) (test 15 meq/L 20-29 fsvy=072) BLOOD UREA NITROGEN 51 mg/dL 10-26 (BEAKER) (test mmyu=306) CREATININE (BEAKER) (test 1.37 mg/dL 0.50-1.20 Specimen moderately qbjv=484) hemolyzed GLUCOSE RANDOM (BEAKER) 106 mg/dL 70-110 (test mkes=506) CALCIUM (BEAKER) (test 11.8 mg/dL 8.5-10.5 hfck=234) EGFR (BEAKER) (test 36 mL/min/1.73 sq m ESTIMATED GFR IS NOT cnit=0968) ACCURATE CREATININE CLEARANCE IN PREDICTING GLOMERULAR FILTRATION RATE. ESTIMATED GFR IS NOT APPLICABLE FOR DIALYSIS PATIENTS. [id number] 02:20:00 Test Item Value Reference Range Comments MAGNESIUM (BEAKER) (test 2.4 mg/dL 1.5-3.0 Specimen moderately hemolyzed ihav=758) [id number] 02:20:00 Test Item Value Reference Range Comments PROTIME (BEAKER) (test cyfl=779) 76.0 sec 9.3-12.0 INR (BEAKER) (test rpaj=813) 7.8 <=5.9 PARTIAL THROMBOPLASTIN TIME (BEAKER) (test 63.2 sec 23.0-35.0 tdxy=205) RECOMMENDED COUMADIN/WARFARIN INR THERAPY RANGESSTANDARD DOSE: 2.0 - 3.0 Includes: PROPHYLAXIS forvenous thrombosis, systemic embolization; TREATMENT for venous thrombosis and/or pulmonary embolus.HIGH RISK: Target INR is 2.5-3.5 for patients with mechanical heart valves.Final Information (Auto Output)Final Information (Auto Output)Final Information (Auto Output)URINALYSIS W/ [id number] 02:19:00 Test Item Value Reference Range Comments COLOR (BEAKER) (test mngp=867) Yellow CLARITY (BEAKER) (test ntgj=170) Slightly Cloudy SPECIFIC GRAVITY UA (BEAKER) (test fqvy=796) 1.015 1.001-1.035 PH UA (BEAKER) (test byzr=528) 8.0 5.0-8.0 PROTEIN UA (BEAKER) (test qorg=032) 100 mg/dL Negative GLUCOSE UA (BEAKER) (test ebni=551) Negative Negative KETONES UA (BEAKER) (test llvv=145) Trace Negative BILIRUBIN UA (BEAKER) (test gvdi=522) Positive Negative BLOOD UA (BEAKER) (test hcav=545) Large Negative NITRITE UA (BEAKER) (test rkfy=190) Positive Negative LEUKOCYTE ESTERASE UA (BEAKER) (test Large Negative lixo=850) UROBILINOGEN UA (BEAKER) (test amhq=226) 1.0 mg/dL 0.2-1.0 BACTERIA (BEAKER) (test vumh=750) Many RBC UA-MANUAL (BEAKER) (test phlf=6755) >100 /HPF WBC UA-MANUAL (BEAKER) (test vybr=4322) 50-100 /HPF SQUAMOUS EPITHELIAL MANUAL (BEAKER) (test 5-10 /HPF rvbi=0188) SOURCE(BEAKER) (test ynej=7163)
--- NOTE | 2018-09-13 22:51 | ER ---
Nurse's Notes [facility] Name: Sally Suárez Age: 88 yrs Sex: Female : 1930 Arrival Date: 09/13/2018 Time: 22:22 Bed 6 Private MD: Diagnosis: Gastrostomy complications;Gastrostomy status Presentation: 09/13 22:23 Presenting complaint: EMS states: that pt pulled out G Tube and it was replaced by fc Nurse and the group home. Pt is here for placement verification. Transition of care: patient was not received from another setting of care. Onset of symptoms was September 13, 2018. Risk Assessment: Do you want to hurt yourself or someone else? Patient reports no desire to harm self or others. Initial Sepsis Screen: Does the patient meet any 2 criteria? No. Patient's initial sepsis screen is negative. Does the patient have a suspected source of infection? No. Patient's initial sepsis screen is negative. Care prior to arrival: None. 22:23 Method Of Arrival: EMS: [facility] fc 22:23 Acuity: LORE 4 fc Historical: - Allergies: 23:12 Allopurinol; aa1 23:12 Ciprofloxacin; aa1 23:12 Darvon; aa1 23:12 Demerol; aa1 23:12 HYDRALAZINE; aa1 23:12 Hydrochlorothiazide; aa1 23:12 Levaquin; aa1 23:12 PENICILLINS; aa1 23:12 reserpine; aa1 23:19 Allopurinol; fc 23:19 Ciprofloxacin; fc 23:19 Demerol; fc 23:19 HYDRALAZINE; fc 23:19 Levaquin; fc 23:19 Hydrochlorothiazide; fc 23:19 PENICILLINS; fc 23:19 Darvon; fc 23:19 reserpine; fc - Home Meds: 23:12 acetaminophen-codeine 300-30 mg Oral tab 1 tab every 6 hours [Active]; apixaban 2.5 mg aa1 Oral 1 tab twice a day [Active]; atorvastatin 20 mg Oral tab 1 tab nightly [Active]; cyclosporine 0.05 % ophthalmic 1 mL every 12 hours for in both eyes [Active]; donepezil 10 mg Oral tab 1 tab nightly [Active]; escitalopram oxalate 20 mg Oral tab 1 tab nightly [Active]; levothyroxine 100 mcg tab 1 tab once daily [Active]; lorazepam 0.5 mg Oral tab 1 tab every 6 hours [Active]; Metoprolol Tartrate 12.5 MG Oral 2 times per day [Active]; sucralfate 1 gram Oral tab 1 tab three times a day [Active]; tramadol 50 mg Oral tab 1 tab every 6 hours [Active]; Uloric 40 mg Oral tab 1 tab once daily [Active]; 23:19 acetaminophen-codeine 300-30 mg Oral tab 1 tab every 6 hours [Active]; valproic acid fc (as sodium salt) 250 mg/5 mL oral soln 5 mL twice a day [Active]; Aricept 10 mg Oral tab 1 tab twice a day [Active]; Seroquel 25 mg Oral tab 1 tab nightly [Active]; Seroquel 25 mg Oral tab 2 tabs nightly [Active]; ativan iv 0.5 ml q 8 hrs prn [Active]; levothyroxine 100 mcg tab 1 tab once daily [Active]; sucralfate 1 gram Oral tab 1 tab three times a day [Active]; Metoprolol Tartrate 12.5 MG Oral 2 times per day [Active]; Uloric 40 mg Oral tab 1 tab once daily [Active]; apixaban 2.5 mg Oral 1 tab twice a day [Active]; escitalopram oxalate 20 mg Oral tab 1 tab nightly [Active]; atorvastatin 20 mg Oral tab 1 tab nightly [Active]; cyclosporine 0.05 % ophthalmic 1 mL every 12 hours for in both eyes [Active]; tramadol 50 mg Oral tab 1 tab q6hrs prn [Active]; - PMHx: 23:12 "chronic kidney disease"; "cognitive communication deficit"; "heart failure"; Anemia; aa1 Anxiety; Atrial Fib; CHF; Dementia; Depression; DYSPHAGIA; GERD; Hyperlipidemia; Hypertension; Hypothyroidism; UTI; 23:19 "chronic kidney disease"; "heart failure"; Anemia; Atrial Fib; CHF; Dementia; fc DYSPHAGIA; GERD; Hyperlipidemia; Depression; Hypothyroidism; Hypertension; Anxiety; UTI; "cognitive communication deficit"; - PSHx: 23:12 G-tube placement; aa1 - Immunization history:: Last tetanus immunization: unknown, Flu vaccine status is unknown. - Social history:: Smoking status: unknown. - Ebola Screening: : Patient negative for fever greater than or equal to 101.5 degrees Fahrenheit, and additional compatible Ebola Virus Disease symptoms Patient denies exposure to infectious person Patient denies travel to an Ebola-affected area in the 21 days before illness onset. - Family history:: not pertinent. Screenin:23 Abuse screen: Denies threats or abuse. Denies injuries from another. Nutritional aa1 screening: No deficits noted. Tuberculosis screening: No symptoms or risk factors identified. Fall Risk None identified. 22:25 Abuse screen: Denies threats or abuse. Nutritional screening: No deficits noted. fc Tuberculosis screening: No symptoms or risk factors identified. Fall Risk Fall in past 12 months (25 points). Secondary diagnosis (15 points) dementia, No IV (0 pts). Ambulatory Aid- None/Bed Rest/Nurse Assist (0 pts). Gait- Impaired (20 pts.). Mental Status- Overestimates/Forgets Limitations (15 pts.). Total Carson Fall Scale indicates High Risk Score (45 or more points). Fall prevention measures have been instituted. Side Rails Up X 2 Placed Close to Nursing Station Frequent Obs/Assessments Occuring As available patient and family educated on Fall Prevention Program and Strategies. Assessment: 22:23 General: Appears in no apparent distress. comfortable, obese, Behavior is calm, aa1 cooperative. Pain: Denies pain. Neuro: Level of Consciousness is awake, alert, obeys commands, confused, Oriented to person, place, pt oriented to her baseline. Respiratory: Airway is patent Respiratory effort is even, unlabored, Respiratory pattern is regular, symmetrical. GI: PEG tube in place, Site clean. : No signs and/or symptoms were reported regarding the genitourinary system. EENT: No signs and/or symptoms were reported regarding the EENT system. Derm: Skin is intact, is healthy with good turgor, Skin is pink, warm \\T\\ dry. Musculoskeletal: Circulation, motion, and sensation intact. Capillary refill < 3 seconds. 23:06 Reassessment: Patient appears in no apparent distress at this time. No changes from aa1 previously documented assessment. Patient and/or family updated on plan of care and expected duration. Pain level reassessed. Spoke with Baljinder at [facility] and informed him that pt is ready to be discharged. Staff member reports he will contact [employer] for transportation and will call us back with an ETA. 09/14 00:12 Reassessment: Patient appears in no apparent distress at this time. No changes from aa1 previously documented assessment. Patient and/or family updated on plan of care and expected duration. Pain level reassessed. Pt still awaiting transportation back to [place]. 00:49 Reassessment: Patient appears in no apparent distress at this time. No changes from aa1 previously documented assessment. EMS present for transport to [place]. Vital Signs: 09/13 22:23 BP 146 / 62; Pulse 72; Resp 18; Temp 98.5(O); Pulse Ox 100% on R/A; Weight 108.86 kg fc (R); Height 5 ft. 4 in. (162.56 cm) (R); Pain 0/10; 23:13 BP 124 / 57; Pulse 69; Resp 18; Pulse Ox 99% on R/A; aa1 09/14 00:13 BP 101 / 61; Pulse 100; Resp 18; Pulse Ox 98% on R/A; Pain 0/10; aa1 09/13 22:23 Body Mass Index 41.20 (108.86 kg, 162.56 cm) ED Course: 09/13 22:22 Patient arrived in ED. 22:22 Edie Villa RN is Primary Nurse. aa1 22:23 Arm band placed on Patient placed in an exam room, on a stretcher. 22:25 Triage completed. 22:25 Patient has correct armband on for positive identification. Placed in gown. Bed in low fc position. Call light in reach. Side rails up X2. 22:32 Abdiaziz Calvillo MD is Attending Physician. [facility] 22:45 Enterostomy Tube Check w/contr In Process Unspecified. EDWY 22:49 Kandi Soto MD is Referral Physician. [facility] 09/14 00:50 No provider procedures requiring assistance completed. Patient did not have IV access aa1 during this emergency room visit. Administered Medications: No medications were administered Outcome: 09/13 22:50 Dis[address] . [facility] 09/14 00:50 Discharged to group home. Report called to Baljinder andrews Condition: stable Discharge instructions given to group home. 00:52 Patient left the ED. aa1 Signatures: Dispatcher [employer] EDMS Edie Villa RN RN aa1 Abdiaziz Calvillo MD MD cha Chretien, Felicia, RN RN fc
--- NOTE | 2018-09-13 22:51 | EDPHYS ---
Physician Documentation [facility] Name: Sally Suárez Age: 88 yrs Sex: Female : 1930 Arrival Date: 09/13/2018 Time: 22:22 Bed 6 Private MD: ED Physician Abdiaziz Calvillo HPI: 09/13 22:43 This 88 yrs old Female presents to ER via EMS with complaints of G tube juan placement. 22:43 The patient presents with abdominal pain g tube placement. Onset: The symptoms/episode juan began/occurred just prior to arrival. Present symptoms: completely resolved. Historical: - Allergies: 23:12 Allopurinol; aa1 23:12 Ciprofloxacin; aa1 23:12 Darvon; aa1 23:12 Demerol; aa1 23:12 HYDRALAZINE; aa1 23:12 Hydrochlorothiazide; aa1 23:12 Levaquin; aa1 23:12 PENICILLINS; aa1 23:12 reserpine; aa1 23:19 Allopurinol; fc 23:19 Ciprofloxacin; fc 23:19 Demerol; fc 23:19 HYDRALAZINE; fc 23:19 Levaquin; fc 23:19 Hydrochlorothiazide; fc 23:19 PENICILLINS; fc 23:19 Darvon; fc 23:19 reserpine; fc - Home Meds: 23:12 acetaminophen-codeine 300-30 mg Oral tab 1 tab every 6 hours [Active]; apixaban 2.5 mg aa1 Oral 1 tab twice a day [Active]; atorvastatin 20 mg Oral tab 1 tab nightly [Active]; cyclosporine 0.05 % ophthalmic 1 mL every 12 hours for in both eyes [Active]; donepezil 10 mg Oral tab 1 tab nightly [Active]; escitalopram oxalate 20 mg Oral tab 1 tab nightly [Active]; levothyroxine 100 mcg tab 1 tab once daily [Active]; lorazepam 0.5 mg Oral tab 1 tab every 6 hours [Active]; Metoprolol Tartrate 12.5 MG Oral 2 times per day [Active]; sucralfate 1 gram Oral tab 1 tab three times a day [Active]; tramadol 50 mg Oral tab 1 tab every 6 hours [Active]; Uloric 40 mg Oral tab 1 tab once daily [Active]; 23:19 acetaminophen-codeine 300-30 mg Oral tab 1 tab every 6 hours [Active]; valproic acid fc (as sodium salt) 250 mg/5 mL oral soln 5 mL twice a day [Active]; Aricept 10 mg Oral tab 1 tab twice a day [Active]; Seroquel 25 mg Oral tab 1 tab nightly [Active]; Seroquel 25 mg Oral tab 2 tabs nightly [Active]; ativan iv 0.5 ml q 8 hrs prn [Active]; levothyroxine 100 mcg tab 1 tab once daily [Active]; sucralfate 1 gram Oral tab 1 tab three times a day [Active]; Metoprolol Tartrate 12.5 MG Oral 2 times per day [Active]; Uloric 40 mg Oral tab 1 tab once daily [Active]; apixaban 2.5 mg Oral 1 tab twice a day [Active]; escitalopram oxalate 20 mg Oral tab 1 tab nightly [Active]; atorvastatin 20 mg Oral tab 1 tab nightly [Active]; cyclosporine 0.05 % ophthalmic 1 mL every 12 hours for in both eyes [Active]; tramadol 50 mg Oral tab 1 tab q6hrs prn [Active]; - PMHx: 23:12 "chronic kidney disease"; "cognitive communication deficit"; "heart failure"; Anemia; aa1 Anxiety; Atrial Fib; CHF; Dementia; Depression; DYSPHAGIA; GERD; Hyperlipidemia; Hypertension; Hypothyroidism; UTI; 23:19 "chronic kidney disease"; "heart failure"; Anemia; Atrial Fib; CHF; Dementia; fc DYSPHAGIA; GERD; Hyperlipidemia; Depression; Hypothyroidism; Hypertension; Anxiety; UTI; "cognitive communication deficit"; - PSHx: 23:12 G-tube placement; aa1 - Immunization history:: Last tetanus immunization: unknown, Flu vaccine status is unknown. - Social history:: Smoking status: unknown. - Ebola Screening: : Patient negative for fever greater than or equal to 101.5 degrees Fahrenheit, and additional compatible Ebola Virus Disease symptoms Patient denies exposure to infectious person Patient denies travel to an Ebola-affected area in the 21 days before illness onset. - Family history:: not pertinent. ROS: 22:43 Constitutional: Negative for fever, chills, and weight loss, Eyes: Negative for injury, juan pain, redness, and discharge, ENT: Negative for injury, pain, and discharge, Neck: Negative for injury, pain, and swelling, Cardiovascular: Negative for chest pain, palpitations, and edema, Respiratory: Negative for shortness of breath, cough, wheezing, and pleuritic chest pain, Back: Negative for injury and pain, : Negative for injury, bleeding, discharge, and swelling, MS/Extremity: Negative for injury and deformity, Skin: Negative for injury, rash, and discoloration, Neuro: Negative for headache, weakness, numbness, tingling, and seizure, Psych: Negative for depression, anxiety, suicide ideation, homicidal ideation, and hallucinations, Allergy/Immunology: Negative for hives, rash, and allergies, Endocrine: Negative for neck swelling, polydipsia, polyuria, polyphagia, and marked weight changes, Hematologic/Lymphatic: Negative for swollen nodes, abnormal bleeding, and unusual bruising. 22:43 Abdomen/GI: Positive for of the left upper quadrant, gtube remove. Exam: 22:43 Constitutional: This is a well developed, well nourished patient who is awake, alert, juan and in no acute distress. Head/Face: Normocephalic, atraumatic. Eyes: Pupils equal round and reactive to light, extra-ocular motions intact. Lids and lashes normal. Conjunctiva and sclera are non-icteric and not injected. Cornea within normal limits. Periorbital areas with no swelling, redness, or edema. ENT: Nares patent. No nasal discharge, no septal abnormalities noted. Tympanic membranes are normal and external auditory canals are clear. Oropharynx with no redness, swelling, or masses, exudates, or evidence of obstruction, uvula midline. Mucous membranes moist. Neck: Trachea midline, no thyromegaly or masses palpated, and no cervical lymphadenopathy. Supple, full range of motion without nuchal rigidity, or vertebral point tenderness. No Meningismus. Chest/axilla: Normal chest wall appearance and motion. Nontender with no deformity. No lesions are appreciated. Cardiovascular: Regular rate and rhythm with a normal S1 and S2. No gallops, murmurs, or rubs. Normal PMI, no JVD. No pulse deficits. Respiratory: Lungs have equal breath sounds bilaterally, clear to auscultation and percussion. No rales, rhonchi or wheezes noted. No increased work of breathing, no retractions or nasal flaring. Back: No spinal tenderness. No costovertebral tenderness. Full range of motion. Female : Normal external genitalia. Skin: Warm, dry with normal turgor. Normal color with no rashes, no lesions, and no evidence of cellulitis. MS/ Extremity: Pulses equal, no cyanosis. Neurovascular intact. Full, normal range of motion. Neuro: Awake and alert, GCS 15, oriented to person, place, time, and situation. Cranial nerves II-XII grossly intact. Motor strength 5/5 in all extremities. Sensory grossly intact. Cerebellar exam normal. Normal gait. Psych: Awake, alert, with orientation to person, place and time. Behavior, mood, and affect are within normal limits. 22:43 Abdomen/GI: Inspection: distension, Bowel sounds: normal, Palpation: mild abdominal tenderness, in all quadrants, Liver: no appreciated palpable abnormalities, Hernia: not appreciated. Vital Signs: 22:23 BP 146 / 62; Pulse 72; Resp 18; Temp 98.5(O); Pulse Ox 100% on R/A; Weight 108.86 kg fc (R); Height 5 ft. 4 in. (162.56 cm) (R); Pain 0/10; 23:13 BP 124 / 57; Pulse 69; Resp 18; Pulse Ox 99% on R/A; aa1 09/14 00:13 BP 101 / 61; Pulse 100; Resp 18; Pulse Ox 98% on R/A; Pain 0/10; aa1 09/13 22:23 Body Mass Index 41.20 (108.86 kg, 162.56 cm) MDM: 09/13 22:33 Patient medically screened. [facility] 22:48 Data reviewed: vital signs, nurses notes, lab test result(s), EKG, radiologic studies, [facility] CT scan, plain films. 09/13 22:25 Order name: Enterostomy Tube Check w/contr snw Administered Medications: No medications were administered Disposition: 09/13/18 22:50 Discharged to Home. Impression: Gastrostomy complications, Gastrostomy status. - Condition is Stable. - Discharge Instructions: Gastrostomy Tube Home Guide, Adult, PEG Tube Home Guide, Nowc-zc-[id number], PEG Tube Home Guide. - Medication Reconciliation Form, Thank You Letter, Antibiotic Education, Prescription Opioid Use form. - Follow up: Private Physician; When: 2 - 3 days; Reason: Recheck today's complaints, Continuance of care, Re-evaluation by your physician. Follow up: Kandi Soto MD; When: 2 - 3 days; Reason: Recheck today's complaints, Re-evaluation by your physician. - Problem is new. - Symptoms have improved. Signatures: Dispatcher [employer] EDMS Edie Villa RN RN aa1 Abdiaziz Calvillo MD MD cha Chretien, Felicia, RN RN Corrections: (The following items were deleted from the chart) 09/14 00:52 09/13 22:50 09/13/2018 22:50 Discharged to Home. Impression: Gastrostomy complications; aa1 Gastrostomy status. Condition is Stable. Forms are Medication Reconciliation Form, Thank You Letter, Antibiotic Education, Prescription Opioid Use. Follow up: Private Physician; When: 2 - 3 days; Reason: Recheck today's complaints, Continuance of care, Re-evaluation by your physician. Follow up: Kandi Soto; When: 2 - 3 days; Reason: Recheck today's complaints, Re-evaluation by your physician. Problem is new. Symptoms have improved. juan
--- NOTE | 2018-09-14 08:32 | RAD REPORT ---
EXAM DESCRIPTION: RAD - ENTEROSTOMY TUBE CHECK W/CONTR - 09/13/2018 10:44 pm CLINICAL HISTORY: G-tube replacement or repositioning COMPARISON: September 13 FINDINGS: Two KUB images were obtained prior to and subsequent to retrograde injection of contrast. Tube was replaced or repositioned outside of this facility. Initial image shows the gastric tube in the left upper quadrant. No free air or bowel obstruction. No suspicious findings noted. Post-contrast injection shows tube positioned in the proximal body of the stomach. All injected contr ast is within the lumen of the stomach and small bowel. IMPRESSION: There is good positioning of the gastric tube. No extravasation of contrast.
== END 2018-09-14 00:52 | disposition home or self-care (01) ==
LOC: ER 22:21
DX: K94.20 Gastrostomy complication, unspecified (principal); I50.9 Heart failure, unspecified; E78.5 Hyperlipidemia, unspecified; F41.9 Anxiety disorder, unspecified; E03.9 Hypothyroidism, unspecified; Z88.0 Allergy status to penicillin; Z88.6 Allergy status to analgesic agent; Z88.8 Allergy status to other drugs, medicaments and biological substances
CPT/HCPCS: 49465; 99283

== ENCOUNTER 2018-10-04 15:50 | Emergency (ER) | payer OTHER ==
--- OUTSIDE RECORDS SUMMARY | 2018-10-04 15:52 | XMS REPORT | Clinical Summary ---
:1930 Author Organization [facility] [employer] Address [address] [place] [address] Care Team Providers Name Role Phone Anthony Estrella Primary Care Provider Allergies Active Allergy Reactions Severity Noted Date Comments Allopurinol Analogues 05/26/2018 Ciprofloxacin 05/25/2018 Propoxyphene N-Acetaminophen 05/25/2018 Gpzecsnmqrm-Kvbfgphm-Bfmxnmjdj 05/25/2018 Levofloxacin 05/25/2018 Penicillins Rash Low 05/25/2018 [...] 05/25/2018 Orders Only Jaycob Andrade, SHAYNE after 10/03/2017 Social History Tobacco Use Types Packs/Day Years [...] procedure are in the results section. after 10/03/2017 Results RHYTHM STRIP - SCAN (05/31/2018 2:55 PM CDT) Narrative Performed At TRANSFUSION SERVICE REPORT - SCAN (05/28/2018 5:54 PM CDT)Only the most recent of2 resultswithin the time period is included. Narrative Performed At XR chest 1 view portable / bedside (05/28/2018 9:35 AM CDT) Narrative Performed At FINAL REPORT [facility] Comparison: 03/31/2014 TECHNIQUE: Single view of the chest FINDINGS: Lung volumes are low. Bibasilar densities may represent atelectasis. No gross new lung parenchymal changes. Cardiac silhouette is magnified by technique. Left-sided pacing device again noted. Signed: Luciana Squires MD Report Verified Date/Time:05/28/2018 12:17:09 Reading Location: [facility] Radiology Reading Room Procedure Note Interface, External Ris In - 05/28/2018 12:19 PM CDT FINAL REPORT Comparison: 03/31/2014 TECHNIQUE: Single view of the chest FINDINGS: Lung volumes are low. Bibasilar densities may represent atelectasis. No gross new lung parenchymal changes. Cardiac silhouette is magnified by technique. Left-sided pacing device again noted. Signed: Luciana Squires MD Report Verified Date/Time: 05/28/2018 12:17:09 Reading Location: [facility] Radiology Reading Room Performing Organization Address City/[facility]/Zipcode Phone Number RIS PT/aPTT (05/28/2018 5:36 AM CDT)Only the most recent of3 resultswithin the time period is included. Protime 13.2 (H) 9.3 - 12.0 sec [facility] INR 1.2 <=5.9 [facility] PTT 37.0 (H) 23.0 - 35.0 sec [facility] Specimen Blood Narrative Performed At [facility] RECOMMENDED COUMADIN/WARFARIN INR THERAPY RANGES STANDARD DOSE: 2.0 - 3.0 Includes: PROPHYLAXIS for venous thrombosis, systemic embolization; TREATMENT for venous thrombosis and/or pulmonary embolus. HIGH RISK: Target INR is 2.5-3.5 for patients with mechanical heart valves. Final Information (Auto Output) Final Information (Auto Output) Final Information (Auto Output) Performing Organization Address City/[facility]/Zipcode Phone Number [facility] [address] [place], [place] [phone] CBC with platelet count + automated diff [...] Blood Performing Organization Address City/State/Zipcode Phone Number [facility] [address] [place] [address] Phosphorus (05/28/2018 5:36 AM CDT)Only the most recent of3 resultswithin the time period is included. Phosphorus 1.7 (L) 2.5 - 4.5 mg/dL [facility] Specimen Blood Performing Organization Address City/[facility]/Zipcode Phone Number [facility] [address] [place], [place] [phone] Magnesium (05/28/2018 5:36 AM CDT)Only the most recent of3 resultswithin the time period is included. Magnesium 1.3 (L) 1.5 - 3.0 mg/dL [facility] Specimen Blood Performing Organization Address [facility] Phone Number [facility] [address] [place], [place] [address] [phone] Comprehensive metabolic panel (05/28/2018 5:36 AM CDT)Only [...] 120 (H) 98 - 106 meq/L [facility] CO2 16 (L) 20 - 29 meq/L [facility] BUN 26 10 - 26 mg/dL [facility] Creatinine 0.97 0.50 - 1.20 mg/dL [facility] Glucose 98 70 - 110 mg/dL [facility] Calcium 9.6 8.5 - 10.5 mg/dL [facility] AST 27 5 - 40 U/L [facility] ALT 33 5 - 50 U/L [facility] EGFR 54Comment: ESTIMATED GFR mL/min/1.73 sq m [facility] IS NOT ACCURATE CREATININE CLEARANCE IN PREDICTING GLOMERULAR FILTRATION RATE. ESTIMATED GFR IS NOT APPLICABLE FOR DIALYSIS PATIENTS. Specimen Blood Performing Organization Address [facility] Phone Number [facility] [address] [place], [place] [phone] Prepare plasma (05/27/2018 11:54 PM CDT) Unit ABO A Pos SAFETRACE TX UNIT NUMBER [id number] SAFETRACE TX Status TRANSFUSED SAFETRACE TX Blood Bank Product FFP SAFETRACE TX PRODUCT CODE [id number] [facility] Specimen Blood Performing Organization Address City/[facility] Cent[facility]ode Phone Number S[facility] TX Prothrombin time/INR (05/27/2018 4:55 AM CDT)Only the most recent of2 resultswithin the time period is included. Protime 20.5 (H) 9.3 - 12.0 seconds [facility] INR 1.9 <=5.9 [facility] Specimen Blood Narrative Performed At [facility] RECOMMENDED COUMADIN/WARFARIN INR THERAPY RANGES STANDARD DOSE: 2.0 - 3.0 Includes: PROPHYLAXIS for venous thrombosis, systemic embolization; TREATMENT for venous thrombosis and/or pulmonary embolus. HIGH RISK: Target INR is 2.5-3.5 for patients with mechanical heart valves. Performing Organization Address City/[facility] Cent[facility]ode Phone Number [facility] [address] [place] [address] Occult blood, stool (05/26/2018 6:02 PM CDT) Occult blood Positive (A) Negative [facility] Specimen Stool - Per Rectum Performing Organization Address [facility] Number [address] [phone] Transfuse plasma (05/26/2018 9:14 AM CDT)Only the most recent of2 resultswithin the time period is included.Troponin I (05/26/2018 3:53 AM CDT) Troponin I 0.23 (HH) 0.00 - 0.15 ng/mL [facility] Specimen Blood - Line, Venous Narrative Performed At [facility] Troponin I (TnI) levels must be [...] disease, and persistent tachyarrhythmia. Performing Organization Address [facility] Phone Number [facility] [address] [place], [place] [address] Type and screen (05/26/2018 3:18 AM CDT) Ab Scrn NEGATIVE [facility] ABO Grouping A [facility] Rh Factor POS [facility] Specimen Blood - Line, Venous Performing Organization Address City/[facility] Phone Number [facility] [address] [place], [place] [phone] [facility] B-type Natriuretic Factor (BNP) (05/26/2018 3:18 AM CDT) BNP 736 (H) 0 - 100 pg/mL [facility] Specimen Blood - Line, Venous Performing Organization Address [facility] Phone Number [facility] [address] [place], [place] [phone] Urinalysis w/ Microscopic (05/26/2018 1:50 AM CDT) Color, UA Yellow [facility] Clarity, UA Slightly Cloudy [facility] Specific [place], UA 1.015 1.001 - 1.035 [facility] pH, UA 8.0 5.0 - 8.0 [facility] Protein, UA 100 mg/dL (A) Negative [facility] Glucose, UA Negative Negative [facility] Ketones, UA Trace (A) Negative [facility] Bilirubin, UA Positive (A) Negative [facility] Blood, UA Large (A) Negative [facility] Nitrite, UA Positive (A) Negative [facility] Leukocytes, UA Large (A) Negative [facility] Urobilinogen, UA 1.0 0.2 - 1.0 mg/dL [facility] Bacteria, UA Many [facility] RBC, UA >100 /HPF [facility] WBC, UA 50-100 /HPF [facility] SQUAMOUS EPITHELIAL 5-10 /HPF [facility] Specimen Source [facility] Specimen Urine - Urine, Don Performing Organization Address [facility] Phone Number [facility] [address] [place], [place] [phone] Basic metabolic panel (05/26/2018 1:48 AM CDT) Sodium 145 135 - 148 meq/L [facility] Potassium 4.4Comment: Specimen moderately 3.6 - 5.5 meq/L [facility] hemolyzed Chloride 118 (H) 98 - 106 meq/L [facility] CO2 15 (L) 20 - 29 meq/L [facility] BUN 51 (H) 10 - 26 mg/dL [facility] Creatinine 1.37 (H)Comment: Specimen 0.50 - 1.20 mg/dL [facility] moderately hemolyzed Glucose 106 70 - 110 mg/dL [facility] Calcium 11.8 (H) 8.5 - 10.5 mg/dL [facility] EGFR 36Comment: ESTIMATED GFR IS NOT mL/min/1.73 sq m [facility] ACCURATE CREATININE CLEARANCE IN PREDICTING GLOMERULAR FILTRATION RATE. ESTIMATED GFR IS NOT APPLICABLE FOR DIALYSIS PATIENTS. Specimen Blood - Arm, Left Performing Organization Address [facility] Phone Number [facility] [address] [place], [place] [phone] Urine culture (05/26/2018 1:08 AM CDT) Result PROTEUS MIRABILIS (A) [facility] Specimen Urine - Urine, Clean Catch [...] + Sulfamethoxazole <=20: Susceptible Performing Organization Address [facility] Phone Number [facility] [address] [place], [place] [phone] after 10/03/2017 Insurance Payer Benefit Plan / Group Subscriber ID Type Phone Address MEDICARE MEDICARE A B xxxxxxxxxx Medicare MCR [employer] SENIOR SUPPLEMENTAL xxxxxxxxxx SUPPLEMENT/INDIVIDUAL (Home) [place] [address] Advance Directives Patient has advance care planning documents, and code status on file. For more information, please contact:[address], [place] [phone] Code Status Date Activated Date Inactivated Comments Full Code 05/26/2018 12:08 AM 05/28/2018 9:10 PM This code status was determined by: Patient
--- OUTSIDE RECORDS SUMMARY | 2018-10-04 15:53 | XMS REPORT ---
:1930 [facility] Address [address] [place] [address] Care Team Providers Name Role Phone GAUDENCIO CONNELLY Unavailable Unavailable Problems This patient has no known problems. Allergies, Adverse Reactions, Alerts This patient has no known allergies or adverse reactions. Medications This patient has no known medications. Results Test Description Test Time Test Comments Text Results Atomic Results Result Comments URINE CULTURE 2018-05-29 08:41:00 Test Item Value Reference Range Comments CULTURE (BEAKER) (test oogj=6147) PROTEUS MIRABILIS >100,000 col/mL Proteus mirabilis Amikacin (test code=1) Ampicillin + Sulbactam (test code=6) Aztreonam (test code=32) Cefazolin (test code=9) Cefepime (test code=51) Cefoxitin (test code=68) Ceftazidime (test code=27) Ceftriaxone (test code=52) Ertapenem (test code=38) Gentamicin (test code=18) Levofloxacin (test code=22) Meropenem (test code=34) Nitrofurantoin (test code=23) Piperacillin + Tazobactam (test code=29) Tetracycline (test code=2) Tigecycline (test ntua=234) Tobramycin (test code=25) Trimethoprim + Sulfamethoxazole (test code=47) RAD, CHEST, 1 VIEW, NON [id number] 12:17:00Reason for exam:-> pneumoniaShould this be performed at the bedside?->YesFINAL REPORT Comparison: 03/31/2014 TECHNIQUE: Single view of the chest FINDINGS : Lung volumes are low. Bibasilar densities may represent atelectasis. No gross new lung parenchymal changes. Cardiac silhouette is magnified by technique. Left -sided pacing device again noted. Signed: Luciana Squires MDReport Verified Date/ Time: 05/28/2018 12:17:09 Reading Location: [facility] Radiology Reading Room COMPREHENSIVE METABOLIC [id number] 06:24:00 Test Item Value Reference Range Comments TOTAL PROTEIN (BEAKER) 4.8 gm/dL 6.0-8.5 (test mhuj=623) ALBUMIN (BEAKER) (test 2.5 g/dL 3.5-5.0 aqku=7101) ALKALINE PHOSPHATASE 129 U/L 30-115 (BEAKER) (test jyuk=949) BILIRUBIN TOTAL (BEAKER) 0.5 mg/dL 0.1-1.2 (test urmq=441) SODIUM (BEAKER) (test 144 meq/L 135-148 bnns=416) POTASSIUM (BEAKER) (test 3.3 meq/L 3.6-5.5 eppy=321) CHLORIDE (BEAKER) (test 120 meq/L 98-106 lyld=042) CO2 (BEAKER) (test 16 meq/L 20-29 jtmb=269) BLOOD UREA NITROGEN 26 mg/dL 10-26 (BEAKER) (test erzd=912) CREATININE (BEAKER) (test 0.97 mg/dL 0.50-1.20 sdqy=321) GLUCOSE RANDOM (BEAKER) 98 mg/dL 70-110 (test pqir=088) CALCIUM (BEAKER) (test 9.6 mg/dL 8.5-10.5 wojj=813) AST (SGOT) (BEAKER) (test 27 U/L 5-40 gctb=230) ALT (SGPT) (BEAKER) (test 33 U/L 5-50 rtss=623) EGFR (BEAKER) (test 54 mL/min/1.73 sq m ESTIMATED GFR IS NOT vvjn=5594) ACCURATE CREATININE CLEARANCE IN PREDICTING GLOMERULAR FILTRATION RATE. ESTIMATED GFR IS NOT APPLICABLE FOR DIALYSIS PATIENTS. [id number] 06:15:00 Test Item Value Reference Range Comments PHOSPHORUS (BEAKER) (test sywd=524) 1.7 mg/dL 2.5-4.5 [id number] 06:10:00 Test Item Value Reference Range Comments MAGNESIUM (BEAKER) (test sonr=869) 1.3 mg/dL 1.5-3.0 [id number] 06:00:00 Test Item Value Reference Range Comments PROTIME (BEAKER) (test szri=673) 13.2 sec 9.3-12.0 INR (BEAKER) (test pfdm=509) 1.2 <=5.9 PARTIAL THROMBOPLASTIN TIME (BEAKER) (test 37.0 sec 23.0-35.0 bnkm=295) RECOMMENDED COUMADIN/WARFARIN INR THERAPY RANGESSTANDARD DOSE: 2.0 - 3.0 Includes: PROPHYLAXIS forvenous thrombosis, systemic embolization; TREATMENT for venous thrombosis and/or pulmonary embolus.HIGH RISK: Target INR is 2.5-3.5 for patients with mechanical heart valves.Final Information (Auto Output)Final Information (Auto Output)Final Information (Auto Output)CBC W/PLT COUNT & AUTO [id number] 05:55:00 Test Item Value Reference Range Comments WHITE BLOOD CELL COUNT (BEAKER) (test wnuh=830) 8.0 K/ L 4.0-10.0 RED BLOOD CELL COUNT (BEAKER) (test rrik=514) 3.56 M/ L 4.00-5.00 HEMOGLOBIN (BEAKER) (test rilj=284) 11.5 GM/DL 12.0-15.0 HEMATOCRIT (BEAKER) (test ylsk=296) 34.5 % 36.0-45.0 MEAN CORPUSCULAR VOLUME (BEAKER) (test qkkp=189) 96.8 fL 82.0-99.0 MEAN CORPUSCULAR HEMOGLOBIN (BEAKER) (test 32.2 pg 27.0-33.0 acfz=356) MEAN CORPUSCULAR HEMOGLOBIN CONC (BEAKER) (test 33.3 GM/DL 32.0-36.0 csgo=137) RED CELL DISTRIBUTION WIDTH (BEAKER) (test 14.6 % 10.3-14.2 msfw=241) PLATELET COUNT (BEAKER) (test gnfm=539) 103 K/CU MM 150-430 MEAN PLATELET VOLUME (BEAKER) (test dpnf=972) 11.0 fL 6.5-10.5 NUCLEATED RED BLOOD CELLS (BEAKER) (test 0 /100 WBC 0-0 smto=202) NEUTROPHILS RELATIVE PERCENT (BEAKER) (test 70 % bngz=687) LYMPHOCYTES RELATIVE PERCENT (BEAKER) (test 15 % atfr=890) MONOCYTES RELATIVE PERCENT (BEAKER) (test 12 % mgav=465) EOSINOPHILS RELATIVE PERCENT (BEAKER) (test 2 % rchi=356) BASOPHILS RELATIVE PERCENT (BEAKER) (test 1 % idla=749) NEUTROPHILS ABSOLUTE COUNT (BEAKER) (test 5.60 K/ L 1.80-8.00 nnxr=674) LYMPHOCYTES ABSOLUTE COUNT (BEAKER) (test 1.20 K/ L 1.48-4.50 gyzc=522) MONOCYTES ABSOLUTE COUNT (BEAKER) (test 1.00 K/ L 0.00-1.30 fzjv=559) EOSINOPHILS ABSOLUTE COUNT (BEAKER) (test 0.20 K/ L 0.00-0.50 amkf=826) BASOPHILS ABSOLUTE COUNT (BEAKER) (test 0.00 K/ L 0.00-0.20 vssu=751) [id number] 06:06:00 Test Item Value Reference Range Comments PHOSPHORUS (BEAKER) (test 1.3 mg/dL 2.5-4.5 Specimen slightly hemolyzed jkgj=100) PT/[id number] 05:52:00 Test Item Value Reference Range Comments PROTIME (BEAKER) (test vulb=791) 20.5 seconds 9.3-12.0 INR (BEAKER) (test psjb=497) 1.9 <=5.9 PARTIAL THROMBOPLASTIN TIME (BEAKER) (test 36.9 seconds 23.0-35.0 delj=658) RECOMMENDED COUMADIN/WARFARIN INR THERAPY RANGESSTANDARD DOSE: 2.0 - 3.0 Includes: PROPHYLAXIS forvenous thrombosis, systemic embolization; TREATMENT for venous thrombosis and/or pulmonary embolus.HIGH RISK: Target INR is 2.5-3.5 for patients with mechanical heart valves.PROTHROMBIN [id number] 05:52: 00 Test Item Value Reference Range Comments PROTIME (BEAKER) (test oikj=683) 20.5 seconds 9.3-12.0 INR (BEAKER) (test zpmh=594) 1.9 <=5.9 RECOMMENDED COUMADIN/WARFARIN INR THERAPY RANGESSTANDARD DOSE: 2.0 - 3.0 Includes: PROPHYLAXIS forvenous thrombosis, systemic embolization; TREATMENT for venous thrombosis and/or pulmonary embolus.HIGH RISK: Target INR is 2.5-3.5 for patients with mechanical heart valves.COMPREHENSIVE METABOLIC [id number] 05:34:00 Test Item Value Reference Range Comments TOTAL PROTEIN (BEAKER) 5.8 gm/dL 6.0-8.5 Specimen slightly (test icqs=434) hemolyzed ALBUMIN (BEAKER) (test 3.0 g/dL 3.5-5.0 Specimen slightly gdlh=9291) hemolyzed ALKALINE PHOSPHATASE 155 U/L 30-115 (BEAKER) (test rqrv=721) BILIRUBIN TOTAL (BEAKER) 0.5 mg/dL 0.1-1.2 Specimen slightly (test cemb=381) hemolyzed SODIUM (BEAKER) (test 147 meq/L 135-148 wxky=597) POTASSIUM (BEAKER) (test 3.1 meq/L 3.6-5.5 Specimen slightly uxyt=426) hemolyzed CHLORIDE (BEAKER) (test 118 meq/L 98-106 fqrg=952) CO2 (BEAKER) (test 18 meq/L 20-29 lktp=077) BLOOD UREA NITROGEN 35 mg/dL 10-26 (BEAKER) (test huyl=921) CREATININE (BEAKER) (test 1.09 mg/dL 0.50-1.20 Specimen slightly eezk=505) hemolyzed GLUCOSE RANDOM (BEAKER) 99 mg/dL 70-110 (test uuqh=884) CALCIUM (BEAKER) (test 11.0 mg/dL 8.5-10.5 lysg=840) AST (SGOT) (BEAKER) (test 37 U/L 5-40 Specimen slightly kwic=051) hemolyzed ALT (SGPT) (BEAKER) (test 51 U/L 5-50 Specimen slightly jldj=134) hemolyzed EGFR (BEAKER) (test 47 mL/min/1.73 sq m ESTIMATED GFR IS NOT jfdj=9168) ACCURATE CREATININE CLEARANCE IN PREDICTING GLOMERULAR FILTRATION RATE. ESTIMATED GFR IS NOT APPLICABLE FOR DIALYSIS PATIENTS. [id number] 05:25:00 Test Item Value Reference Range Comments MAGNESIUM (BEAKER) (test 1.6 mg/dL 1.5-3.0 Specimen slightly hemolyzed xbbt=453) CBC W/PLT COUNT & AUTO [id number] 05:13:00 Test Item Value Reference Range Comments WHITE BLOOD CELL COUNT (BEAKER) (test ffey=223) 12.9 K/ L 4.0-10.0 RED BLOOD CELL COUNT (BEAKER) (test qmya=171) 4.03 M/ L 4.00-5.00 HEMOGLOBIN (BEAKER) (test iysp=688) 12.9 GM/DL 12.0-15.0 HEMATOCRIT (BEAKER) (test xaoq=281) 38.8 % 36.0-45.0 MEAN CORPUSCULAR VOLUME (BEAKER) (test hwmu=010) 96.3 fL 82.0-99.0 MEAN CORPUSCULAR HEMOGLOBIN (BEAKER) (test 31.9 pg 27.0-33.0 vdxf=851) MEAN CORPUSCULAR HEMOGLOBIN CONC (BEAKER) (test 33.2 GM/DL 32.0-36.0 hqzy=517) RED CELL DISTRIBUTION WIDTH (BEAKER) (test 14.5 % 10.3-14.2 azgu=905) PLATELET COUNT (BEAKER) (test llmy=627) 164 K/CU MM 150-430 MEAN PLATELET VOLUME (BEAKER) (test ifgv=689) 11.5 fL 6.5-10.5 NUCLEATED RED BLOOD CELLS (BEAKER) (test 0 /100 WBC 0-0 ozsg=833) NEUTROPHILS RELATIVE PERCENT (BEAKER) (test 79 % wtqr=505) LYMPHOCYTES RELATIVE PERCENT (BEAKER) (test 9 % qkhr=600) MONOCYTES RELATIVE PERCENT (BEAKER) (test 10 % pwya=071) EOSINOPHILS RELATIVE PERCENT (BEAKER) (test 1 % ibxc=632) BASOPHILS RELATIVE PERCENT (BEAKER) (test 0 % puxh=550) NEUTROPHILS ABSOLUTE COUNT (BEAKER) (test 10.20 K/ L 1.80-8.00 jifg=014) LYMPHOCYTES ABSOLUTE COUNT (BEAKER) (test 1.20 K/ L 1.48-4.50 gkgr=832) MONOCYTES ABSOLUTE COUNT (BEAKER) (test 1.30 K/ L 0.00-1.30 hajr=611) EOSINOPHILS ABSOLUTE COUNT (BEAKER) (test 0.10 K/ L 0.00-0.50 mowl=663) BASOPHILS ABSOLUTE COUNT (BEAKER) (test 0.00 K/ L 0.00-0.20 puyo=080) OCCULT BLOOD, [id number] 18:13:00 Test Item Value Reference Range Comments FECAL OCCULT BLOOD (BEAKER) (test uhfy=177) Positive Negative PROTHROMBIN [id number] 16:59:00 Test Item Value Reference Range Comments PROTIME (BEAKER) (test hxwt=489) 70.5 sec 9.3-12.0 INR (BEAKER) (test akcn=959) 7.2 <=5.9 RECOMMENDED COUMADIN/WARFARIN INR THERAPY RANGESSTANDARD DOSE: 2.0 - 3.0 Includes: PROPHYLAXIS forvenous thrombosis, systemic embolization; TREATMENT for venous thrombosis and/or pulmonary embolus.HIGH RISK: Target INR is 2.5-3.5 for patients with mechanical heart valves.Final Information (Auto Output)Final Information (Auto Output)TROPONIN [id number] 05:46:00 Test Item Value Reference Range Comments TROPONIN I (BEAKER) (test vvnb=890) 0.23 ng/mL 0.00-0.15 Troponin I (TnI) levels [...] NATRIURETIC PEPTIDE (BEAKER) (test 736 pg/mL 0-100 webb=998) CBC W/PLT COUNT & AUTO [id number] 04:08:00 Test Item Value Reference Range Comments WHITE BLOOD CELL COUNT (BEAKER) (test jwmk=770) 12.3 K/ L 4.0-10.0 RED BLOOD CELL COUNT (BEAKER) (test foat=077) 4.41 M/ L 4.00-5.00 HEMOGLOBIN (BEAKER) (test blvo=675) 13.0 GM/DL 12.0-15.0 HEMATOCRIT (BEAKER) (test wxob=841) 42.0 % 36.0-45.0 MEAN CORPUSCULAR VOLUME (BEAKER) (test ylrb=352) 95.2 fL 82.0-99.0 MEAN CORPUSCULAR HEMOGLOBIN (BEAKER) (test 29.5 pg 27.0-33.0 yvaz=992) MEAN CORPUSCULAR HEMOGLOBIN CONC (BEAKER) (test 31.0 GM/DL 32.0-36.0 iulu=015) RED CELL DISTRIBUTION WIDTH (BEAKER) (test 13.6 % 10.3-14.2 gmfq=502) PLATELET COUNT (BEAKER) (test nukw=665) 181 K/CU MM 150-430 MEAN PLATELET VOLUME (BEAKER) (test vaff=667) 12.5 fL 6.5-10.5 NEUTROPHILS RELATIVE PERCENT (BEAKER) (test 79 % abnh=831) LYMPHOCYTES RELATIVE PERCENT (BEAKER) (test 10 % rgeu=779) MONOCYTES RELATIVE PERCENT (BEAKER) (test 11 % emdy=876) EOSINOPHILS RELATIVE PERCENT (BEAKER) (test 0 % iexk=230) BASOPHILS RELATIVE PERCENT (BEAKER) (test 0 % inet=047) NEUTROPHILS ABSOLUTE COUNT (BEAKER) (test 9.60 K/ L 1.80-8.00 ohqg=836) LYMPHOCYTES ABSOLUTE COUNT (BEAKER) (test 1.30 K/ L 1.48-4.50 rerg=813) MONOCYTES ABSOLUTE COUNT (BEAKER) (test 1.30 K/ L 0.00-1.30 ecdf=161) EOSINOPHILS ABSOLUTE COUNT (BEAKER) (test 0.00 K/ L 0.00-0.50 zbvs=428) BASOPHILS ABSOLUTE COUNT (BEAKER) (test 0.00 K/ L 0.00-0.20 qzoo=629) [id number] 02:35:00 Test Item Value Reference Range Comments PHOSPHORUS (BEAKER) (test 1.4 mg/dL 2.5-4.5 Specimen moderately hemolyzed apab=228) BASIC METABOLIC [id number] 02:34:00 Test Item Value Reference Range Comments SODIUM (BEAKER) (test 145 meq/L 135-148 tpts=158) POTASSIUM (BEAKER) (test 4.4 meq/L 3.6-5.5 Specimen moderately qsya=348) hemolyzed CHLORIDE (BEAKER) (test 118 meq/L 98-106 fswf=305) CO2 (BEAKER) (test 15 meq/L 20-29 axvv=734) BLOOD UREA NITROGEN 51 mg/dL 10-26 (BEAKER) (test moju=232) CREATININE (BEAKER) (test 1.37 mg/dL 0.50-1.20 Specimen moderately fsal=792) hemolyzed GLUCOSE RANDOM (BEAKER) 106 mg/dL 70-110 (test ksbg=670) CALCIUM (BEAKER) (test 11.8 mg/dL 8.5-10.5 ozgd=814) EGFR (BEAKER) (test 36 mL/min/1.73 sq m ESTIMATED GFR IS NOT uvwj=4074) ACCURATE CREATININE CLEARANCE IN PREDICTING GLOMERULAR FILTRATION RATE. ESTIMATED GFR IS NOT APPLICABLE FOR DIALYSIS PATIENTS. [id number] 02:20:00 Test Item Value Reference Range Comments MAGNESIUM (BEAKER) (test 2.4 mg/dL 1.5-3.0 Specimen moderately hemolyzed kzix=850) [id number] 02:20:00 Test Item Value Reference Range Comments PROTIME (BEAKER) (test dfcm=680) 76.0 sec 9.3-12.0 INR (BEAKER) (test ohbw=498) 7.8 <=5.9 PARTIAL THROMBOPLASTIN TIME (BEAKER) (test 63.2 sec 23.0-35.0 fxvz=864) RECOMMENDED COUMADIN/WARFARIN INR THERAPY RANGESSTANDARD DOSE: 2.0 - 3.0 Includes: PROPHYLAXIS forvenous thrombosis, systemic embolization; TREATMENT for venous thrombosis and/or pulmonary embolus.HIGH RISK: Target INR is 2.5-3.5 for patients with mechanical heart valves.Final Information (Auto Output)Final Information (Auto Output)Final Information (Auto Output)URINALYSIS W/ [id number] 02:19:00 Test Item Value Reference Range Comments COLOR (BEAKER) (test ntsl=316) Yellow CLARITY (BEAKER) (test oqgv=697) Slightly Cloudy SPECIFIC GRAVITY UA (BEAKER) (test erlc=474) 1.015 1.001-1.035 PH UA (BEAKER) (test triq=338) 8.0 5.0-8.0 PROTEIN UA (BEAKER) (test ndpd=801) 100 mg/dL Negative GLUCOSE UA (BEAKER) (test xbzc=805) Negative Negative KETONES UA (BEAKER) (test aciu=631) Trace Negative BILIRUBIN UA (BEAKER) (test vtpr=313) Positive Negative BLOOD UA (BEAKER) (test jhrz=917) Large Negative NITRITE UA (BEAKER) (test whka=298) Positive Negative LEUKOCYTE ESTERASE UA (BEAKER) (test Large Negative zvey=417) UROBILINOGEN UA (BEAKER) (test eqzb=571) 1.0 mg/dL 0.2-1.0 BACTERIA (BEAKER) (test hyrs=555) Many RBC UA-MANUAL (BEAKER) (test icjm=5501) >100 /HPF WBC UA-MANUAL (BEAKER) (test frsc=1382) 50-100 /HPF SQUAMOUS EPITHELIAL MANUAL (BEAKER) (test 5-10 /HPF olzh=1236) SOURCE(BEAKER) (test lqab=4251)
--- NOTE | 2018-10-04 18:13 | RAD REPORT ---
EXAM DESCRIPTION: RAD - Forearm Right - 10/04/2018 6:01 pm CLINICAL HISTORY: Arm pain, no trauma history detailed COMPARISON: None. FINDINGS: No fracture is identified. There is no dislocation or periosteal reaction noted. No elevated posterior fat pad at the elbow joint. There is subtle cortical irregularity of the distal radial metaphysis that is not definitive for fracture. Positioning is not optimal. Fall history was not noted. Pain localizing to the wrist was not noted. Bones are osteopenic. No foreign body. IMPRESSION: No fracture confirmed. Imaging of the distal radius is not optimal. No history provided to indicate trauma or pain in this region. Follow-up or directed wrist imaging could be obtained if the patient has localized symptoms.
--- NOTE | 2018-10-04 18:14 | RAD REPORT ---
EXAM DESCRIPTION: RAD - Humerus Right - 10/04/2018 6:00 pm CLINICAL HISTORY: Arm pain COMPARISON: None. FINDINGS: No fracture is identified. There is no dislocation or periosteal reaction noted. Acromial humeral joint space is narrowed raising concern for chronic rotator cuff tear. There degenerative juan nges to the acromion and AC joint. No pathologic bone process. No suspicious soft tissue finding. IMPRESSION: No fracture or acute right humerus finding. Suspected chronic rotator cuff tear.
--- NOTE | 2018-10-04 18:56 | EDPHYS ---
Physician Documentation [facility] Name: Sally Suárez Age: 88 yrs Sex: Female : 1930 Arrival Date: 10/04/2018 Time: 15:58 Bed 26 Private MD: ED Physician Alexis Guajardo HPI: 10/04 18:00 This 88 yrs old Female presents to ER via EMS with complaints of Right Arm pm1 Pain. 18:00 The patient or guardian complains of pain. The complaints affect the right arm. pm1 Context: The problem was sustained at a jail or assisted living facility, resulted from unknown cause. Onset: The symptoms/episode began/occurred today. Treatment prior to arrival includes: no previous treatment. Modifying factors: the symptoms are aggravated by movement. Associated signs and symptoms: Pertinent negatives: decreased range of motion. Severity of symptoms: in the emergency department the symptoms are unchanged. The patient has not experienced similar symptoms in the past. Patient was sent here from the jail for right arm pain. [facility] denies any fall or trauma. Patient with a history of right rotator cuff injury per family. X-ray was performed earlier today and jail sent the patient to ER for MRI and further evaluation of possible nondisplaced distal right forearm fracture. Historical: - Allergies: 16:07 Allopurinol; tl3 16:07 Ciprofloxacin; tl3 16:07 Darvon; tl3 16:07 Demerol; tl3 16:07 HYDRALAZINE; tl3 16:07 Hydrochlorothiazide; tl3 16:07 Levaquin; tl3 16:07 PENICILLINS; tl3 16:07 reserpine; tl3 - Home Meds: 16:07 acetaminophen-codeine 300-30 mg Oral tab 1 tab every 6 hours [Active]; apixaban 2.5 mg tl3 Oral 1 tab twice a day [Active]; Aricept 10 mg Oral tab 1 tab twice a day [Active]; ativan iv 0.5 ml q 8 hrs prn [Active]; atorvastatin 20 mg Oral tab 1 tab nightly [Active]; cyclosporine 0.05 % ophthalmic 1 mL every 12 hours for in both eyes [Active]; escitalopram oxalate 20 mg Oral tab 1 tab nightly [Active]; levothyroxine 100 mcg tab 1 tab once daily [Active]; Metoprolol Tartrate 12.5 MG Oral 2 times per day [Active]; Seroquel 25 mg Oral tab 2 tabs nightly [Active]; sucralfate 1 gram Oral tab 1 tab three times a day [Active]; tramadol 50 mg Oral tab 1 tab q6hrs prn [Active]; Uloric 40 mg Oral tab 1 tab once daily [Active]; valproic acid (as sodium salt) 250 mg/5 mL Oral soln 5 mL twice a day [Active]; - PMHx: 16:09 "chronic kidney disease"; "cognitive communication deficit"; "heart failure"; Anemia; tl3 Anxiety; Atrial Fib; CHF; Dementia; Depression; DYSPHAGIA; GERD; Hyperlipidemia; Hypertension; Hypothyroidism; UTI; - Immunization history:: Adult Immunizations up to date. - Social history:: Smoking status: unknown. - Ebola Screening: : No symptoms or risks identified at this time. ROS: 18:00 Constitutional: Negative for fever, chills, and weight loss, Eyes: Negative for injury, pm1 pain, redness, and discharge, ENT: Negative for injury, pain, and discharge. 18:00 Neck: Negative for injury, pain, and swelling, Cardiovascular: Negative for chest pain, palpitations, and edema, Respiratory: Negative for shortness of breath, cough, wheezing, and pleuritic chest pain, Abdomen/GI: Negative for abdominal pain, nausea, vomiting, diarrhea, and constipation, Back: Negative for injury and pain, : Negative for injury, bleeding, discharge, and swelling, MS/Extremity: Negative for injury and deformity, Skin: Negative for injury, rash, and discoloration, Neuro: Negative for headache, weakness, numbness, tingling, and seizure. 18:00 MS/extremity: Positive for pain, of the right arm. 18:00 Unable to obtain ROS due to baseline dementia. Exam: 18:00 Constitutional: This is a well developed, well nourished patient who is awake, alert, pm1 and in no acute distress. Head/Face: Normocephalic, atraumatic. Eyes: Pupils equal round and reactive to light, extra-ocular motions intact. Lids and lashes normal. Conjunctiva and sclera are non-icteric and not injected. Cornea within normal limits. Periorbital areas with no swelling, redness, or edema. ENT: Nares patent. No nasal discharge, no septal abnormalities noted. Tympanic membranes are normal and external auditory canals are clear. Oropharynx with no redness, swelling, or masses, exudates, or evidence of obstruction, uvula midline. Mucous membranes moist. Neck: Trachea midline, no thyromegaly or masses palpated, and no cervical lymphadenopathy. Supple, full range of motion without nuchal rigidity, or vertebral point tenderness. No Meningismus. Chest/axilla: Normal chest wall appearance and motion. Nontender with no deformity. No lesions are appreciated. Cardiovascular: Regular rate and rhythm with a normal S1 and S2. No gallops, murmurs, or rubs. Normal PMI, no JVD. No pulse deficits. Respiratory: Lungs have equal breath sounds bilaterally, clear to auscultation and percussion. No rales, rhonchi or wheezes noted. No increased work of breathing, no retractions or nasal flaring. Abdomen/GI: Soft, non-tender, with normal bowel sounds. No distension or tympany. No guarding or rebound. No evidence of tenderness throughout. Back: No spinal tenderness. No costovertebral tenderness. Full range of motion. Skin: Warm, dry with normal turgor. Normal color with no rashes, no lesions, and no evidence of cellulitis. 18:00 Musculoskeletal/extremity: Extremities: grossly normal except: noted in the anterior aspect of right shoulder: tenderness, There is no evidence of decreased ROM, deformity, No tenderness present to right forearm, right elbow, right wrist, and right hand. Vital Signs: 16:09 BP 99 / 49; Pulse 60; Resp 18; Temp 99.2(O); Pulse Ox 99% ; tl3 17:30 BP 103 / 46; Pulse 59; Resp 18; Pulse Ox 99% on R/A; tl3 18:48 BP 89 / 54; Pulse 65; Resp 18; Pulse Ox 98% on R/A; tl3 MDM: 15:59 Patient medically screened. pm1 18:25 ED course: Patient without any focal tenderness to right elbow, forearm, wrist and pm1 hand. Therefore no need for dedicated wrist films in the ER. Likely patient with chronic pain associated with right rotator cuff injury that is known by family. Based on the X-ray interpretation from prior X-ray today, I will however send the patient home with wrist splint. . 18:33 Data reviewed: vital signs. Data interpreted: Pulse oximetry: on room air is 99 %. pm1 Interpretation: normal. Counseling: I had a detailed discussion with the patient and/or guardian regarding: the historical points, exam findings, and any diagnostic results supporting the discharge/admit diagnosis. 10/04 16:05 Order name: Humerus Right XRAY; Complete Time: 18:16 pm1 10/04 16:05 Order name: Forearm Right XRAY; Complete Time: 18:16 pm1 10/04 18:59 Order name: Wrist Splint; Complete Time: 21:38 pm1 Administered Medications: No medications were administered Disposition: 10/05 07:45 Co-signature as Attending Physician, Alexis Guajardo MD. rn Disposition: 10/04/18 18:55 Discharged to Home. Impression: Pain in right arm. - Condition is Stable. - Discharge Instructions: Cast or Splint Care, Adult, Musculoskeletal Pain. - Medication Reconciliation Form, Thank You Letter form. - Follow up: Emergency Department; When: As needed; Reason: Worsening of condition. Follow up: Private Physician; When: 2 - 3 days; Reason: Recheck today's complaints, Continuance of care, Re-evaluation by your physician. - Problem is new. - Symptoms have improved. Signatures: Dispatcher [employer] EDMS Alexis Guajardo MD MD rn Marinas, Patrick, [employer] pm1 Sandy Rose RN RN tl3 Corrections: (The following items were deleted from the chart) 10/04 19:00 18:08 Splint - Sugar Tong - Forearm ordered. pm1 pm1 21:52 18:55 10/04/2018 18:55 Discharged to Home. Impression: Pain in right arm. Condition is tl3 Stable. Forms are Medication Reconciliation Form, Thank You Letter, Antibiotic Education, Prescription Opioid Use. Follow up: Emergency Department; When: As needed; Reason: Worsening of condition. Follow up: Private Physician; When: 2 - 3 days; Reason: Recheck today's complaints, Continuance of care, Re-evaluation by your physician. Problem is new. Symptoms have improved. pm1
--- NOTE | 2018-10-04 18:56 | ER ---
Nurse's Notes [facility] Name: Sally Suárez Age: 88 yrs Sex: Female : 1930 Arrival Date: 10/04/2018 Time: 15:58 Bed 26 Private MD: Diagnosis: Pain in right arm Presentation: 10/04 15:45 Presenting complaint: EMS states: [facility] reports that pt has a possible fracture tl3 to right forearm, the say she was fine last night but this morning was in severe pain with any manipulation of right arm, xray done at facility with dx of" Possible nondisplaced fracture of the distal radius with intra- articular". Transition of care: patient was not received from another setting of care. Onset of symptoms was October 04, 2018. Risk Assessment: Do you want to hurt yourself or someone else? Patient reports no desire to harm self or others. Initial Sepsis Screen: Does the patient meet any 2 criteria? No. Patient's initial sepsis screen is negative. Does the patient have a suspected source of infection? No. Patient's initial sepsis screen is negative. Care prior to arrival: x-ray taken. 15:45 Method Of Arrival: EMS: [facility] tl3 15:45 Acuity: LORE 3 tl3 Triage Assessment: 16:09 General: Appears in no apparent distress. well developed, well nourished, Behavior is tl3 calm, cooperative, flat, quiet. Pain: Complains of pain in right arm. EENT: No signs and/or symptoms were reported regarding the EENT system. Neuro: Level of Consciousness is awake, Oriented to person. Cardiovascular: Patient's skin is warm and dry. Respiratory: Airway is patent Respiratory effort is even, unlabored, Respiratory pattern is regular, symmetrical. GI: No signs and/or symptoms were reported involving the gastrointestinal system. : No signs and/or symptoms were reported regarding the genitourinary system. Derm: No signs and/or symptoms reported regarding the dermatologic system. Musculoskeletal: Parent/caregiver report the patient having pain in right arm since this morning. Historical: - Allergies: 16:07 Allopurinol; tl3 16:07 Ciprofloxacin; tl3 16:07 Darvon; tl3 16:07 Demerol; tl3 16:07 HYDRALAZINE; tl3 16:07 Hydrochlorothiazide; tl3 16:07 Levaquin; tl3 16:07 PENICILLINS; tl3 16:07 reserpine; tl3 - Home Meds: 16:07 acetaminophen-codeine 300-30 mg Oral tab 1 tab every 6 hours [Active]; apixaban 2.5 mg tl3 Oral 1 tab twice a day [Active]; Aricept 10 mg Oral tab 1 tab twice a day [Active]; ativan iv 0.5 ml q 8 hrs prn [Active]; atorvastatin 20 mg Oral tab 1 tab nightly [Active]; cyclosporine 0.05 % ophthalmic 1 mL every 12 hours for in both eyes [Active]; escitalopram oxalate 20 mg Oral tab 1 tab nightly [Active]; levothyroxine 100 mcg tab 1 tab once daily [Active]; Metoprolol Tartrate 12.5 MG Oral 2 times per day [Active]; Seroquel 25 mg Oral tab 2 tabs nightly [Active]; sucralfate 1 gram Oral tab 1 tab three times a day [Active]; tramadol 50 mg Oral tab 1 tab q6hrs prn [Active]; Uloric 40 mg Oral tab 1 tab once daily [Active]; valproic acid (as sodium salt) 250 mg/5 mL Oral soln 5 mL twice a day [Active]; - PMHx: 16:09 "chronic kidney disease"; "cognitive communication deficit"; "heart failure"; Anemia; tl3 Anxiety; Atrial Fib; CHF; Dementia; Depression; DYSPHAGIA; GERD; Hyperlipidemia; Hypertension; Hypothyroidism; UTI; - Immunization history:: Adult Immunizations up to date. - Social history:: Smoking status: unknown. - Ebola Screening: : No symptoms or risks identified at this time. Screenin:12 Abuse screen: Denies threats or abuse. Nutritional screening: No deficits noted. tl3 Tuberculosis screening: No symptoms or risk factors identified. Fall Risk Fall in past 12 months (25 points). Assessment: 16:12 Reassessment: No changes from previously documented assessment. Marbin at bedside for tl3 assessment. 17:30 Reassessment: Patient appears in no apparent distress at this time. Patient and/or tl3 family updated on plan of care and expected duration. Pain level reassessed. Patient is alert, oriented x 3, equal unlabored respirations, skin warm/dry/pink. 18:48 Reassessment: Patient appears in no apparent distress at this time. No changes from tl3 previously documented assessment. Patient and/or family updated on plan of care and expected duration. Pain level reassessed. Patient is alert, oriented x 3, equal unlabored respirations, skin warm/dry/pink. Vital Signs: 16:09 BP 99 / 49; Pulse 60; Resp 18; Temp 99.2(O); Pulse Ox 99% ; tl3 17:30 BP 103 / 46; Pulse 59; Resp 18; Pulse Ox 99% on R/A; tl3 18:48 BP 89 / 54; Pulse 65; Resp 18; Pulse Ox 98% on R/A; tl3 ED Course: 15:58 Patient arrived in ED. tl3 15:59 Marbin Pagan NP is PHCP. pm1 15:59 Alexis Guajardo MD is Attending Physician. pm1 16:04 Triage completed. tl3 16:09 Arm band placed on left wrist. tl3 16:12 Patient has correct armband on for positive identification. Bed in low position. Call tl3 light in reach. Side rails up X2. Pulse ox on. NIBP on. 16:12 No provider procedures requiring assistance completed. Patient did not have IV access tl3 during this emergency room visit. 17:59 X-ray completed. Portable x-ray completed in exam room. Patient tolerated procedure ls3 well. 18:03 Humerus Right XRAY In Process Unspecified. EDMS 18:03 Forearm Right XRAY In Process Unspecified. EDMS 18:46 Sandy Rose, RN is Primary Nurse. tl3 Administered Medications: No medications were administered Outcome: 18:55 Discharge ordered by . pm1 21:51 Discharged to snf. tl3 21:51 Condition: stable 21:51 Instructed on discharge instructions. 21:52 Patient left the ED. tl3 Signatures: Dispatcher [employer] EDMS Marbin Pagan NP SERVICES ADVISOR pm1 Sandy Rose, RN RN tl3 Lluvia Mcmillan ls3
== END 2018-10-04 21:52 | disposition home or self-care (01) ==
LOC: ER 15:50
DX: M79.601 Pain in right arm (principal); D64.9 Anemia, unspecified; E78.5 Hyperlipidemia, unspecified; E03.9 Hypothyroidism, unspecified; I13.0 Hypertensive heart and chronic kidney disease with heart failure and stage 1 through stage 4 chronic kidney disease, or unspecified chronic kidney disease; I50.9 Heart failure, unspecified; N18.9 Chronic kidney disease, unspecified; I48.91 Unspecified atrial fibrillation; K21.9 Gastro-esophageal reflux disease without esophagitis; F03.90 Unspecified dementia, unspecified severity, without behavioral disturbance, psychotic disturbance, mood disturbance, and anxiety; R41.841 Cognitive communication deficit; F41.9 Anxiety disorder, unspecified; F32.9 Major depressive disorder, single episode, unspecified; Z79.899 Other long term (current) drug therapy
CPT/HCPCS: 99283

== ENCOUNTER 2018-10-07 01:14 | Emergency (ER) | payer OTHER ==
--- OUTSIDE RECORDS SUMMARY | 2018-10-07 01:16 | XMS REPORT | Clinical Summary ---
:1930 Author Organization [facility] [employer] Address [address] [place] [address] Care Team Providers Name Role Phone Anthony Estrella Primary Care Provider Allergies Active Allergy Reactions Severity Noted Date Comments Allopurinol Analogues 05/26/2018 Ciprofloxacin 05/25/2018 Propoxyphene N-Acetaminophen 05/25/2018 Fnevbilbcda-Mzqwazhg-Ahaniuuas 05/25/2018 Levofloxacin 05/25/2018 Penicillins Rash Low 05/25/2018 [...] Kidney stone 05/25/2018 Orders Only Jaycob Andrade, SHAYEN after 10/06/2017 Social History Tobacco Use Types Packs/Day Years [...] procedure are in the results section. after 10/06/2017 Results RHYTHM STRIP - SCAN (05/31/2018 2:55 PM CDT) Narrative Performed At TRANSFUSION SERVICE REPORT - SCAN (05/28/2018 5:54 PM CDT)Only the most recent of2 resultswithin the time period is included. Narrative Performed At XR chest 1 view portable / bedside (05/28/2018 9:35 AM CDT) Narrative Performed At FINAL REPORT [facility] Comparison: 03/31/2014 TECHNIQUE: Single view of the chest FINDINGS: Lung volumes are low. Bibasilar densities may represent atelectasis. No gross new lung parenchymal changes. Cardiac silhouette is magnified by technique. Left-sided pacing device again noted. Signed: Luciana Squires MD Report Verified Date/Time:05/28/2018 12:17:09 Reading Location: [facility] Radiology Reading Room Procedure Note Interface, External Ris In - 05/28/2018 12:19 PM CDT FINAL REPORT Comparison: 03/31/2014 TECHNIQUE: Single view of the chest FINDINGS: Lung volumes are low. Bibasilar densities may represent atelectasis. No gross new lung parenchymal changes. Cardiac silhouette is magnified by technique. Left-sided pacing device again noted. Signed: Luciana Squires MD Report Verified Date/Time: 05/28/2018 12:17:09 Reading Location: [facility] Radiology Reading Room Performing Organization Address City/[facility]/Zipcode Phone Number RIS PT/aPTT (05/28/2018 5:36 AM CDT)Only the most recent of3 resultswithin the time period is included. Protime 13.2 (H) 9.3 - 12.0 sec [facility] INR 1.2 <=5.9 [facility] PTT 37.0 (H) 23.0 - 35.0 sec [facility] Specimen Blood Narrative Performed At [facility] RECOMMENDED COUMADIN/WARFARIN INR THERAPY RANGES STANDARD DOSE: 2.0 - 3.0 Includes: PROPHYLAXIS for venous thrombosis, systemic embolization; TREATMENT for venous thrombosis and/or pulmonary embolus. HIGH RISK: Target INR is 2.5-3.5 for patients with mechanical heart valves. Final Information (Auto Output) Final Information (Auto Output) Final Information (Auto Output) Performing Organization Address City/[facility]/Zipcode Phone Number [facility] [address], [place] [phone] CBC with platelet count + automated diff [...] Blood Performing Organization Address City/State/Zipcode Phone Number [facility] [address] [place] [address] Phosphorus (05/28/2018 5:36 AM CDT)Only the most recent of3 resultswithin the time period is included. Phosphorus 1.7 (L) 2.5 - 4.5 mg/dL [facility] Specimen Blood Performing Organization Address City/[facility]/Zipcode Phone Number [facility] [address], [place] [phone] Magnesium (05/28/2018 5:36 AM CDT)Only the most recent of3 resultswithin the time period is included. Magnesium 1.3 (L) 1.5 - 3.0 mg/dL [facility] Specimen Blood Performing Organization Address [facility] Phone Number [facility] [address], [place] [phone] Comprehensive metabolic panel (05/28/2018 5:36 AM CDT)Only [...] 120 (H) 98 - 106 meq/L [facility] CO2 16 (L) 20 - 29 meq/L [facility] BUN 26 10 - 26 mg/dL [facility] Creatinine 0.97 0.50 - 1.20 mg/dL [facility] Glucose 98 70 - 110 mg/dL [facility] Calcium 9.6 8.5 - 10.5 mg/dL [facility] AST 27 5 - 40 U/L [facility] ALT 33 5 - 50 U/L [facility] EGFR 54Comment: ESTIMATED GFR mL/min/1.73 sq m [facility] IS NOT ACCURATE CREATININE CLEARANCE IN PREDICTING GLOMERULAR FILTRATION RATE. ESTIMATED GFR IS NOT APPLICABLE FOR DIALYSIS PATIENTS. Specimen Blood Performing Organization Address [facility] Phone Number [facility] [address], [place] [address] [phone] Prepare plasma (05/27/2018 11:54 PM CDT) Unit ABO A Pos [facility] [place] UNIT NUMBER [id number] [facility] [place] Status TRANSFUSED [facility] [place] Blood Bank Product FFP [facility] [place] PRODUCT CODE [id number] [facility] [place] Specimen Blood Performing Organization Address City/[facility] Phone Number [facility] [place] Prothrombin time/INR (05/27/2018 4:55 AM CDT)Only the most recent of2 resultswithin the time period is included. Protime 20.5 (H) 9.3 - 12.0 seconds [facility] INR 1.9 <=5.9 [facility] Specimen Blood Narrative Performed At [facility] RECOMMENDED COUMADIN/WARFARIN INR THERAPY RANGES STANDARD DOSE: 2.0 - 3.0 Includes: PROPHYLAXIS for venous thrombosis, systemic embolization; TREATMENT for venous thrombosis and/or pulmonary embolus. HIGH RISK: Target INR is 2.5-3.5 for patients with mechanical heart valves. Performing Organization Address City/[facility] Phone Number [facility] [address] [place] [address] [phone] Occult blood, stool (05/26/2018 6:02 PM CDT) Occult blood Positive (A) Negative [facility] Specimen Stool - Per Rectum Performing Organization Address [facility] Number [address] [phone] Transfuse plasma (05/26/2018 9:14 AM CDT)Only the most recent of2 resultswithin the time period is included.Troponin I (05/26/2018 3:53 AM CDT) Troponin I 0.23 (HH) 0.00 - 0.15 ng/mL [facility] Specimen Blood - Line, Venous Narrative Performed At [facility] Troponin I (TnI) levels must be [...] disease, and persistent tachyarrhythmia. Performing Organization Address [facility] Phone Number [facility] [address], [place] [phone] Type and screen (05/26/2018 3:18 AM CDT) Ab Scrn NEGATIVE [facility] ABO Grouping A [facility] Rh Factor POS [facility] Specimen Blood - Line, Venous Performing Organization Address City/[facility] Phone Number [facility] [address] [place], [place] [phone] [facility] B-type Natriuretic Factor (BNP) (05/26/2018 3:18 AM CDT) BNP 736 (H) 0 - 100 pg/mL [facility] Specimen Blood - Line, Venous Performing Organization Address [facility] Phone Number [facility] [address], [place] [address] [phone] Urinalysis w/ Microscopic (05/26/2018 1:50 AM CDT) Color, UA Yellow [facility] Clarity, UA Slightly Cloudy [facility] Specific [place], UA 1.015 1.001 - 1.035 [facility] pH, UA 8.0 5.0 - 8.0 [facility] Protein, UA 100 mg/dL (A) Negative [facility] Glucose, UA Negative Negative [facility] Ketones, UA Trace (A) Negative [facility] Bilirubin, UA Positive (A) Negative [facility] Blood, UA Large (A) Negative [facility] Nitrite, UA Positive (A) Negative [facility] Leukocytes, UA Large (A) Negative [facility] Urobilinogen, UA 1.0 0.2 - 1.0 mg/dL [facility] Bacteria, UA Many [facility] RBC, UA >100 /HPF [facility] WBC, UA 50-100 /HPF [facility] SQUAMOUS EPITHELIAL 5-10 /HPF [facility] Specimen Source [facility] Specimen Urine - Urine, Don Performing Organization Address [facility] Phone Number [facility] [address], [place] [phone] Basic metabolic panel (05/26/2018 1:48 AM CDT) Sodium 145 135 - 148 meq/L [facility] Potassium 4.4Comment: Specimen moderately 3.6 - 5.5 meq/L [facility] hemolyzed Chloride 118 (H) 98 - 106 meq/L [facility] CO2 15 (L) 20 - 29 meq/L [facility] BUN 51 (H) 10 - 26 mg/dL [facility] Creatinine 1.37 (H)Comment: Specimen 0.50 - 1.20 mg/dL [facility] moderately hemolyzed Glucose 106 70 - 110 mg/dL [facility] Calcium 11.8 (H) 8.5 - 10.5 mg/dL [facility] EGFR 36Comment: ESTIMATED GFR IS NOT mL/min/1.73 sq m [facility] ACCURATE CREATININE CLEARANCE IN PREDICTING GLOMERULAR FILTRATION RATE. ESTIMATED GFR IS NOT APPLICABLE FOR DIALYSIS PATIENTS. Specimen Blood - Arm, Left Performing Organization Address [facility] Phone Number [facility] [address], [place] [phone] Urine culture (05/26/2018 1:08 AM CDT) Result PROTEUS MIRABILIS (A) [facility] Specimen Urine - Urine, Clean Catch [...] + Sulfamethoxazole <=20: Susceptible Performing Organization Address [facility] Phone Number [facility] [address], [place] [phone] after 10/06/2017 Insurance Payer Benefit Plan / Group Subscriber ID Type Phone Address MEDICARE MEDICARE A B xxxxxxxxxx Medicare MCR [employer] SENIOR SUPPLEMENTAL xxxxxxxxxx SUPPLEMENT/INDIVIDUAL (Home) [place] [address] Advance Directives Patient has advance care planning documents, and code status on file. For more information, please contact:[address], [place] [phone] Code Status Date Activated Date Inactivated Comments Full Code 05/26/2018 12:08 AM 05/28/2018 9:10 PM This code status was determined by: Patient
--- OUTSIDE RECORDS SUMMARY | 2018-10-07 01:17 | XMS REPORT ---
:1930 [facility] Address [address] [place] [address] Care Team Providers Name Role Phone GAUDENCIO CONNELLY Unavailable Unavailable Problems This patient has no known problems. Allergies, Adverse Reactions, Alerts This patient has no known allergies or adverse reactions. Medications This patient has no known medications. Results Test Description Test Time Test Comments Text Results Atomic Results Result Comments URINE CULTURE 2018-05-29 08:41:00 Test Item Value Reference Range Comments CULTURE (BEAKER) (test loup=3230) PROTEUS MIRABILIS >100,000 col/mL Proteus mirabilis Amikacin (test code=1) Ampicillin + Sulbactam (test code=6) Aztreonam (test code=32) Cefazolin (test code=9) Cefepime (test code=51) Cefoxitin (test code=68) Ceftazidime (test code=27) Ceftriaxone (test code=52) Ertapenem (test code=38) Gentamicin (test code=18) Levofloxacin (test code=22) Meropenem (test code=34) Nitrofurantoin (test code=23) Piperacillin + Tazobactam (test code=29) Tetracycline (test code=2) Tigecycline (test xyoq=366) Tobramycin (test code=25) Trimethoprim + Sulfamethoxazole (test code=47) RAD, CHEST, 1 VIEW, NON [id number] 12:17:00Reason for exam:-> pneumoniaShould this be performed at the bedside?->YesFINAL REPORT Comparison: 03/31/2014 TECHNIQUE: Single view of the chest FINDINGS : Lung volumes are low. Bibasilar densities may represent atelectasis. No gross new lung parenchymal changes. Cardiac silhouette is magnified by technique. Left -sided pacing device again noted. Signed: Luciana Squires MDReport Verified Date/ Time: 05/28/2018 12:17:09 Reading Location: [facility] Radiology Reading Room COMPREHENSIVE METABOLIC [id number] 06:24:00 Test Item Value Reference Range Comments TOTAL PROTEIN (BEAKER) 4.8 gm/dL 6.0-8.5 (test acxd=634) ALBUMIN (BEAKER) (test 2.5 g/dL 3.5-5.0 auvp=2561) ALKALINE PHOSPHATASE 129 U/L 30-115 (BEAKER) (test zggv=455) BILIRUBIN TOTAL (BEAKER) 0.5 mg/dL 0.1-1.2 (test xqga=203) SODIUM (BEAKER) (test 144 meq/L 135-148 yuab=002) POTASSIUM (BEAKER) (test 3.3 meq/L 3.6-5.5 dtyu=964) CHLORIDE (BEAKER) (test 120 meq/L 98-106 fwkx=572) CO2 (BEAKER) (test 16 meq/L 20-29 zcdr=592) BLOOD UREA NITROGEN 26 mg/dL 10-26 (BEAKER) (test rgjl=651) CREATININE (BEAKER) (test 0.97 mg/dL 0.50-1.20 eygc=209) GLUCOSE RANDOM (BEAKER) 98 mg/dL 70-110 (test vtoj=619) CALCIUM (BEAKER) (test 9.6 mg/dL 8.5-10.5 wsrm=194) AST (SGOT) (BEAKER) (test 27 U/L 5-40 ioww=117) ALT (SGPT) (BEAKER) (test 33 U/L 5-50 coim=551) EGFR (BEAKER) (test 54 mL/min/1.73 sq m ESTIMATED GFR IS NOT wnoy=5462) ACCURATE CREATININE CLEARANCE IN PREDICTING GLOMERULAR FILTRATION RATE. ESTIMATED GFR IS NOT APPLICABLE FOR DIALYSIS PATIENTS. [id number] 06:15:00 Test Item Value Reference Range Comments PHOSPHORUS (BEAKER) (test ugjv=978) 1.7 mg/dL 2.5-4.5 [id number] 06:10:00 Test Item Value Reference Range Comments MAGNESIUM (BEAKER) (test zoez=476) 1.3 mg/dL 1.5-3.0 [id number] 06:00:00 Test Item Value Reference Range Comments PROTIME (BEAKER) (test rbtl=982) 13.2 sec 9.3-12.0 INR (BEAKER) (test udng=835) 1.2 <=5.9 PARTIAL THROMBOPLASTIN TIME (BEAKER) (test 37.0 sec 23.0-35.0 rkjt=853) RECOMMENDED COUMADIN/WARFARIN INR THERAPY RANGESSTANDARD DOSE: 2.0 - 3.0 Includes: PROPHYLAXIS forvenous thrombosis, systemic embolization; TREATMENT for venous thrombosis and/or pulmonary embolus.HIGH RISK: Target INR is 2.5-3.5 for patients with mechanical heart valves.Final Information (Auto Output)Final Information (Auto Output)Final Information (Auto Output)CBC W/PLT COUNT & AUTO [id number] 05:55:00 Test Item Value Reference Range Comments WHITE BLOOD CELL COUNT (BEAKER) (test faeb=131) 8.0 K/ L 4.0-10.0 RED BLOOD CELL COUNT (BEAKER) (test tumd=752) 3.56 M/ L 4.00-5.00 HEMOGLOBIN (BEAKER) (test pzbg=161) 11.5 GM/DL 12.0-15.0 HEMATOCRIT (BEAKER) (test lmmq=253) 34.5 % 36.0-45.0 MEAN CORPUSCULAR VOLUME (BEAKER) (test jxpu=834) 96.8 fL 82.0-99.0 MEAN CORPUSCULAR HEMOGLOBIN (BEAKER) (test 32.2 pg 27.0-33.0 dimf=691) MEAN CORPUSCULAR HEMOGLOBIN CONC (BEAKER) (test 33.3 GM/DL 32.0-36.0 wipv=157) RED CELL DISTRIBUTION WIDTH (BEAKER) (test 14.6 % 10.3-14.2 hmbc=785) PLATELET COUNT (BEAKER) (test swva=938) 103 K/CU MM 150-430 MEAN PLATELET VOLUME (BEAKER) (test tohj=372) 11.0 fL 6.5-10.5 NUCLEATED RED BLOOD CELLS (BEAKER) (test 0 /100 WBC 0-0 ybbf=940) NEUTROPHILS RELATIVE PERCENT (BEAKER) (test 70 % lwtd=242) LYMPHOCYTES RELATIVE PERCENT (BEAKER) (test 15 % jwmd=090) MONOCYTES RELATIVE PERCENT (BEAKER) (test 12 % ntzj=677) EOSINOPHILS RELATIVE PERCENT (BEAKER) (test 2 % wofa=858) BASOPHILS RELATIVE PERCENT (BEAKER) (test 1 % ozwx=116) NEUTROPHILS ABSOLUTE COUNT (BEAKER) (test 5.60 K/ L 1.80-8.00 lasn=905) LYMPHOCYTES ABSOLUTE COUNT (BEAKER) (test 1.20 K/ L 1.48-4.50 aytf=369) MONOCYTES ABSOLUTE COUNT (BEAKER) (test 1.00 K/ L 0.00-1.30 xcbf=085) EOSINOPHILS ABSOLUTE COUNT (BEAKER) (test 0.20 K/ L 0.00-0.50 gprr=457) BASOPHILS ABSOLUTE COUNT (BEAKER) (test 0.00 K/ L 0.00-0.20 lwgu=220) [id number] 06:06:00 Test Item Value Reference Range Comments PHOSPHORUS (BEAKER) (test 1.3 mg/dL 2.5-4.5 Specimen slightly hemolyzed llwd=354) [id number] 05:52:00 Test Item Value Reference Range Comments PROTIME (BEAKER) (test imru=074) 20.5 seconds 9.3-12.0 INR (BEAKER) (test redw=619) 1.9 <=5.9 PARTIAL THROMBOPLASTIN TIME (BEAKER) (test 36.9 seconds 23.0-35.0 vtkg=045) RECOMMENDED COUMADIN/WARFARIN INR THERAPY RANGESSTANDARD DOSE: 2.0 - 3.0 Includes: PROPHYLAXIS forvenous thrombosis, systemic embolization; TREATMENT for venous thrombosis and/or pulmonary embolus.HIGH RISK: Target INR is 2.5-3.5 for patients with mechanical heart valves.PROTHROMBIN [id number] 05:52: 00 Test Item Value Reference Range Comments PROTIME (BEAKER) (test qfhq=424) 20.5 seconds 9.3-12.0 INR (BEAKER) (test mtoq=550) 1.9 <=5.9 RECOMMENDED COUMADIN/WARFARIN INR THERAPY RANGESSTANDARD DOSE: 2.0 - 3.0 Includes: PROPHYLAXIS forvenous thrombosis, systemic embolization; TREATMENT for venous thrombosis and/or pulmonary embolus.HIGH RISK: Target INR is 2.5-3.5 for patients with mechanical heart valves.COMPREHENSIVE METABOLIC [id number] 05:34:00 Test Item Value Reference Range Comments TOTAL PROTEIN (BEAKER) 5.8 gm/dL 6.0-8.5 Specimen slightly (test ntwg=260) hemolyzed ALBUMIN (BEAKER) (test 3.0 g/dL 3.5-5.0 Specimen slightly awig=3866) hemolyzed ALKALINE PHOSPHATASE 155 U/L 30-115 (BEAKER) (test cnge=601) BILIRUBIN TOTAL (BEAKER) 0.5 mg/dL 0.1-1.2 Specimen slightly (test mbge=075) hemolyzed SODIUM (BEAKER) (test 147 meq/L 135-148 xmra=334) POTASSIUM (BEAKER) (test 3.1 meq/L 3.6-5.5 Specimen slightly fghz=938) hemolyzed CHLORIDE (BEAKER) (test 118 meq/L 98-106 pyyg=332) CO2 (BEAKER) (test 18 meq/L 20-29 wcil=974) BLOOD UREA NITROGEN 35 mg/dL 10-26 (BEAKER) (test zxwl=011) CREATININE (BEAKER) (test 1.09 mg/dL 0.50-1.20 Specimen slightly hdsp=904) hemolyzed GLUCOSE RANDOM (BEAKER) 99 mg/dL 70-110 (test ywxi=643) CALCIUM (BEAKER) (test 11.0 mg/dL 8.5-10.5 zlyk=230) AST (SGOT) (BEAKER) (test 37 U/L 5-40 Specimen slightly sjcn=450) hemolyzed ALT (SGPT) (BEAKER) (test 51 U/L 5-50 Specimen slightly sohw=195) hemolyzed EGFR (BEAKER) (test 47 mL/min/1.73 sq m ESTIMATED GFR IS NOT tlop=6496) ACCURATE CREATININE CLEARANCE IN PREDICTING GLOMERULAR FILTRATION RATE. ESTIMATED GFR IS NOT APPLICABLE FOR DIALYSIS PATIENTS. [id number] 05:25:00 Test Item Value Reference Range Comments MAGNESIUM (BEAKER) (test 1.6 mg/dL 1.5-3.0 Specimen slightly hemolyzed esmr=018) CBC W/PLT COUNT & AUTO [id number] 05:13:00 Test Item Value Reference Range Comments WHITE BLOOD CELL COUNT (BEAKER) (test ezex=617) 12.9 K/ L 4.0-10.0 RED BLOOD CELL COUNT (BEAKER) (test cmqj=315) 4.03 M/ L 4.00-5.00 HEMOGLOBIN (BEAKER) (test blce=693) 12.9 GM/DL 12.0-15.0 HEMATOCRIT (BEAKER) (test cofb=812) 38.8 % 36.0-45.0 MEAN CORPUSCULAR VOLUME (BEAKER) (test xjep=558) 96.3 fL 82.0-99.0 MEAN CORPUSCULAR HEMOGLOBIN (BEAKER) (test 31.9 pg 27.0-33.0 mekl=289) MEAN CORPUSCULAR HEMOGLOBIN CONC (BEAKER) (test 33.2 GM/DL 32.0-36.0 jrcd=892) RED CELL DISTRIBUTION WIDTH (BEAKER) (test 14.5 % 10.3-14.2 dtnu=155) PLATELET COUNT (BEAKER) (test nnen=690) 164 K/CU MM 150-430 MEAN PLATELET VOLUME (BEAKER) (test ofcm=243) 11.5 fL 6.5-10.5 NUCLEATED RED BLOOD CELLS (BEAKER) (test 0 /100 WBC 0-0 znit=643) NEUTROPHILS RELATIVE PERCENT (BEAKER) (test 79 % wrpr=892) LYMPHOCYTES RELATIVE PERCENT (BEAKER) (test 9 % vdpq=768) MONOCYTES RELATIVE PERCENT (BEAKER) (test 10 % eiiu=278) EOSINOPHILS RELATIVE PERCENT (BEAKER) (test 1 % mpjw=697) BASOPHILS RELATIVE PERCENT (BEAKER) (test 0 % dgox=982) NEUTROPHILS ABSOLUTE COUNT (BEAKER) (test 10.20 K/ L 1.80-8.00 aphm=419) LYMPHOCYTES ABSOLUTE COUNT (BEAKER) (test 1.20 K/ L 1.48-4.50 txgc=869) MONOCYTES ABSOLUTE COUNT (BEAKER) (test 1.30 K/ L 0.00-1.30 fioh=570) EOSINOPHILS ABSOLUTE COUNT (BEAKER) (test 0.10 K/ L 0.00-0.50 evpe=212) BASOPHILS ABSOLUTE COUNT (BEAKER) (test 0.00 K/ L 0.00-0.20 pxjx=917) OCCULT BLOOD, [id number] 18:13:00 Test Item Value Reference Range Comments FECAL OCCULT BLOOD (BEAKER) (test xnyz=201) Positive Negative PROTHROMBIN [id number] 16:59:00 Test Item Value Reference Range Comments PROTIME (BEAKER) (test lptq=852) 70.5 sec 9.3-12.0 INR (BEAKER) (test ffjm=103) 7.2 <=5.9 RECOMMENDED COUMADIN/WARFARIN INR THERAPY RANGESSTANDARD DOSE: 2.0 - 3.0 Includes: PROPHYLAXIS forvenous thrombosis, systemic embolization; TREATMENT for venous thrombosis and/or pulmonary embolus.HIGH RISK: Target INR is 2.5-3.5 for patients with mechanical heart valves.Final Information (Auto Output)Final Information (Auto Output)TROPONIN [id number] 05:46:00 Test Item Value Reference Range Comments TROPONIN I (BEAKER) (test wnxc=696) 0.23 ng/mL 0.00-0.15 Troponin I (TnI) levels [...] NATRIURETIC PEPTIDE (BEAKER) (test 736 pg/mL 0-100 lnvc=611) CBC W/PLT COUNT & AUTO [id number] 04:08:00 Test Item Value Reference Range Comments WHITE BLOOD CELL COUNT (BEAKER) (test ccww=153) 12.3 K/ L 4.0-10.0 RED BLOOD CELL COUNT (BEAKER) (test iycm=529) 4.41 M/ L 4.00-5.00 HEMOGLOBIN (BEAKER) (test tvpq=793) 13.0 GM/DL 12.0-15.0 HEMATOCRIT (BEAKER) (test nxvz=184) 42.0 % 36.0-45.0 MEAN CORPUSCULAR VOLUME (BEAKER) (test bisf=569) 95.2 fL 82.0-99.0 MEAN CORPUSCULAR HEMOGLOBIN (BEAKER) (test 29.5 pg 27.0-33.0 cczr=241) MEAN CORPUSCULAR HEMOGLOBIN CONC (BEAKER) (test 31.0 GM/DL 32.0-36.0 btsb=131) RED CELL DISTRIBUTION WIDTH (BEAKER) (test 13.6 % 10.3-14.2 jkns=544) PLATELET COUNT (BEAKER) (test ymnf=970) 181 K/CU MM 150-430 MEAN PLATELET VOLUME (BEAKER) (test qmwr=360) 12.5 fL 6.5-10.5 NEUTROPHILS RELATIVE PERCENT (BEAKER) (test 79 % eyvh=272) LYMPHOCYTES RELATIVE PERCENT (BEAKER) (test 10 % tkey=659) MONOCYTES RELATIVE PERCENT (BEAKER) (test 11 % owwz=313) EOSINOPHILS RELATIVE PERCENT (BEAKER) (test 0 % roqo=886) BASOPHILS RELATIVE PERCENT (BEAKER) (test 0 % tswl=141) NEUTROPHILS ABSOLUTE COUNT (BEAKER) (test 9.60 K/ L 1.80-8.00 hhix=708) LYMPHOCYTES ABSOLUTE COUNT (BEAKER) (test 1.30 K/ L 1.48-4.50 pzml=861) MONOCYTES ABSOLUTE COUNT (BEAKER) (test 1.30 K/ L 0.00-1.30 zppt=378) EOSINOPHILS ABSOLUTE COUNT (BEAKER) (test 0.00 K/ L 0.00-0.50 aequ=515) BASOPHILS ABSOLUTE COUNT (BEAKER) (test 0.00 K/ L 0.00-0.20 yokw=613) [id number] 02:35:00 Test Item Value Reference Range Comments PHOSPHORUS (BEAKER) (test 1.4 mg/dL 2.5-4.5 Specimen moderately hemolyzed phqa=050) BASIC METABOLIC [id number] 02:34:00 Test Item Value Reference Range Comments SODIUM (BEAKER) (test 145 meq/L 135-148 iceh=257) POTASSIUM (BEAKER) (test 4.4 meq/L 3.6-5.5 Specimen moderately jiiw=386) hemolyzed CHLORIDE (BEAKER) (test 118 meq/L 98-106 yyxr=583) CO2 (BEAKER) (test 15 meq/L 20-29 vneu=699) BLOOD UREA NITROGEN 51 mg/dL 10-26 (BEAKER) (test zizn=944) CREATININE (BEAKER) (test 1.37 mg/dL 0.50-1.20 Specimen moderately emao=529) hemolyzed GLUCOSE RANDOM (BEAKER) 106 mg/dL 70-110 (test dvwn=546) CALCIUM (BEAKER) (test 11.8 mg/dL 8.5-10.5 zweb=642) EGFR (BEAKER) (test 36 mL/min/1.73 sq m ESTIMATED GFR IS NOT ephc=2473) ACCURATE CREATININE CLEARANCE IN PREDICTING GLOMERULAR FILTRATION RATE. ESTIMATED GFR IS NOT APPLICABLE FOR DIALYSIS PATIENTS. [id number] 02:20:00 Test Item Value Reference Range Comments MAGNESIUM (BEAKER) (test 2.4 mg/dL 1.5-3.0 Specimen moderately hemolyzed rjzn=032) [id number] 02:20:00 Test Item Value Reference Range Comments PROTIME (BEAKER) (test nltb=738) 76.0 sec 9.3-12.0 INR (BEAKER) (test eaae=985) 7.8 <=5.9 PARTIAL THROMBOPLASTIN TIME (BEAKER) (test 63.2 sec 23.0-35.0 dosj=703) RECOMMENDED COUMADIN/WARFARIN INR THERAPY RANGESSTANDARD DOSE: 2.0 - 3.0 Includes: PROPHYLAXIS forvenous thrombosis, systemic embolization; TREATMENT for venous thrombosis and/or pulmonary embolus.HIGH RISK: Target INR is 2.5-3.5 for patients with mechanical heart valves.Final Information (Auto Output)Final Information (Auto Output)Final Information (Auto Output)URINALYSIS W/ [id number] 02:19:00 Test Item Value Reference Range Comments COLOR (BEAKER) (test jusi=373) Yellow CLARITY (BEAKER) (test atju=816) Slightly Cloudy SPECIFIC GRAVITY UA (BEAKER) (test unue=803) 1.015 1.001-1.035 PH UA (BEAKER) (test wiid=029) 8.0 5.0-8.0 PROTEIN UA (BEAKER) (test mywd=876) 100 mg/dL Negative GLUCOSE UA (BEAKER) (test oufk=399) Negative Negative KETONES UA (BEAKER) (test ypyi=056) Trace Negative BILIRUBIN UA (BEAKER) (test xhio=809) Positive Negative BLOOD UA (BEAKER) (test mory=214) Large Negative NITRITE UA (BEAKER) (test fzyl=626) Positive Negative LEUKOCYTE ESTERASE UA (BEAKER) (test Large Negative bwdr=272) UROBILINOGEN UA (BEAKER) (test qhkn=884) 1.0 mg/dL 0.2-1.0 BACTERIA (BEAKER) (test bxpr=127) Many RBC UA-MANUAL (BEAKER) (test hyri=8286) >100 /HPF WBC UA-MANUAL (BEAKER) (test kzsi=4008) 50-100 /HPF SQUAMOUS EPITHELIAL MANUAL (BEAKER) (test 5-10 /HPF ozfy=3070) SOURCE(BEAKER) (test thok=7361)
--- NOTE | 2018-10-07 03:57 | ER ---
Nurse's Notes [facility] Name: Sally Suárez Age: 88 yrs Sex: Female : 1930 Arrival Date: 10/07/2018 Time: 01:15 Bed 8 Private MD: Diagnosis: Encounter for attention to gastrostomy-PEG tube replacement Presentation: 10/07 01:26 Presenting complaint: EMS states: "we picked her up from [facility] because she was jd3 found at 2200 with a displaced Peg tube.". Transition of care: patient was received from another setting of care (long-term care facility), [facility]. Onset of symptoms was October 07, 2018. Risk Assessment: Do you want to hurt yourself or someone else? Patient reports no desire to harm self or others. Initial Sepsis Screen: Does the patient meet any 2 criteria? No. Patient's initial sepsis screen is negative. Does the patient have a suspected source of infection? No. Patient's initial sepsis screen is negative. Care prior to arrival: None. 01:26 Method Of Arrival: EMS: [facility] jd3 01:26 Acuity: LORE 3 jd3 Historical: - Allergies: 01:34 Allopurinol; jd3 01:34 Ciprofloxacin; jd3 01:34 Darvon; jd3 01:34 Hydrochlorothiazide; jd3 01:34 PENICILLINS; jd3 01:34 reserpine; jd3 01:34 Levaquin; jd3 01:34 HYDRALAZINE; jd3 01:34 Demerol; jd3 - Home Meds: 01:34 acetaminophen-codeine 300-30 mg Oral tab 1 tab every 6 hours [Active]; apixaban 2.5 mg jd3 Oral 1 tab twice a day [Active]; Aricept 10 mg Oral tab 1 tab twice a day [Active]; ativan iv 0.5 ml q 8 hrs prn [Active]; atorvastatin 20 mg Oral tab 1 tab nightly [Active]; cyclosporine 0.05 % ophthalmic 1 mL every 12 hours for in both eyes [Active]; escitalopram oxalate 20 mg Oral tab 1 tab nightly [Active]; sucralfate 1 gram Oral tab 1 tab three times a day [Active]; levothyroxine 100 mcg tab 1 tab once daily [Active]; Metoprolol Tartrate 12.5 MG Oral 2 times per day [Active]; Seroquel 25 mg Oral tab 2 tabs nightly [Active]; tramadol 50 mg Oral tab 1 tab q6hrs prn [Active]; Uloric 40 mg Oral tab 1 tab once daily [Active]; valproic acid (as sodium salt) 250 mg/5 mL Oral soln 5 mL twice a day [Active]; - PMHx: 01:34 "heart failure"; DYSPHAGIA; "chronic kidney disease"; Hyperlipidemia; "cognitive jd3 communication deficit"; Depression; CHF; Anemia; Dementia; Hypothyroidism; Anxiety; Hypertension; Atrial Fib; GERD; UTI; - Immunization history:: Adult Immunizations unknown. - Social history:: Smoking status: unknown. - Ebola Screening: : Patient negative for fever greater than or equal to 101.5 degrees Fahrenheit, and additional compatible Ebola Virus Disease symptoms. Screenin:38 Abuse screen: Denies threats or abuse. Nutritional screening: No deficits noted. jd3 Tuberculosis screening: No symptoms or risk factors identified. Fall Risk Ambulatory Aid- Furniture (30 pts.). Gait- Impaired (20 pts.). Mental Status- Overestimates/Forgets Limitations (15 pts.). Total Carson Fall Scale indicates High Risk Score (45 or more points). Fall prevention measures have been instituted. Side Rails Up X 2 Placed Close to Nursing Station Frequent Obs/Assessments Occuring. Assessment: 01:35 General: Appears in no apparent distress. Behavior is inappropriate for age, quiet. jd3 Pain: Unable to use pain scale. Does not appear to understand pain scale. Neuro: Level of Consciousness is awake, Oriented to none. Cardiovascular: Capillary refill < 3 seconds Patient's skin is warm and dry. Respiratory: Airway is patent Respiratory effort is even, unlabored, Respiratory pattern is regular, symmetrical. GI: Abdomen is round Parent/caregiver reports the patient having Peg Tube displacement. : No signs and/or symptoms were reported regarding the genitourinary system. EENT: No signs and/or symptoms were reported regarding the EENT system. Derm: Skin is intact, Skin is dry, Skin is normal, Skin temperature is warm. 02:45 Reassessment: Patient and/or family updated on plan of care and expected duration. Pain ea level reassessed. Pt resting with eyes closed, respirations even and unlabored. Chest expansions even and symmetrical. 03:21 Reassessment: Patient appears in no apparent distress at this time. Patient and/or jd3 family updated on plan of care and expected duration. Pain level reassessed. 04:13 Reassessment: Patient and/or family updated on plan of care and expected duration. Pain ea level reassessed. Report called to Nurse Hauser at [facility], reported he would call back with transportation ETA. 04:54 Reassessment: Patient and/or family updated on plan of care and expected duration. Pain ea level reassessed. Pt alert, confused, respirations even and unlabored. Chest expansions even and symmetrical. No s/s of pain or discomfort noted at this time. Vital Signs: 01:34 BP 118 / 99; Pulse 58; Resp 19 S; Temp 97.4(A); Pulse Ox 98% on R/A; Weight 113.4 kg jd3 (R); Height 5 ft. 4 in. (162.56 cm) (R); Pain 0/10; 03:21 BP 113 / 58; Pulse 72; Resp 17 S; Pulse Ox 97% on R/A; jd3 04:45 BP 110 / 60; Pulse 68; Resp 18; Pulse Ox 99% on R/A; ea 01:34 Body Mass Index 42.91 (113.40 kg, 162.56 cm) jd3 ED Course: 01:15 Patient arrived in ED. ds1 01:26 Jignesh Barba, RN is Primary Nurse. jd3 01:28 Triage completed. jd3 01:35 Arm band placed on. jd3 01:38 Patient has correct armband on for positive identification. Bed in low position. Call j light in reach. Side rails up X2. 02:15 Marbin Pagan, OCTAVIO is PHCP. pm1 02:15 Abad Rojas MD is Attending Physician. pm1 03:01 Peg tube insertion pt tolerated well. 16 Fr peg tube inserted per Marbin pt tolerated ea well. 03:03 X-ray completed. Portable x-ray completed in exam room. Patient tolerated procedure kw well. 03:04 PEG Tube Check w/contrast In Process Unspecified. EDMS 04:54 Patient did not have IV access during this emergency room visit. ea Administered Medications: No medications were administered Outcome: 03:57 Discharge ordered by . pm1 04:53 Discharged to [facility]. Report called to [facility] Nurse Murtaza loera 04:53 Condition: good 04:53 Discharge instructions given to EMS, Instructed on discharge instructions, follow up and referral plans. 04:56 Patient left the ED. evaristo Signatures: Dispatcher [employer] EDKate Archibald ds1 Taya Epstein Patrick, OCTAVIO ENGRAVER LETTER pm1 Mary Alice Mayorga RN RN Jignesh Mathis RN RN jd3 Corrections: (The following items were deleted from the chart) 01:29 01:26 Transition of care: patient was not received from another setting of care. [email or web address] jd3
--- NOTE | 2018-10-07 03:58 | EDPHYS ---
Physician Documentation [facility] Name: Sally Suárez Age: 88 yrs Sex: Female : 1930 Arrival Date: 10/07/2018 Time: 01:15 Bed 8 Private MD: ED Physician Abad Rojas HPI: 10/07 04:10 This 88 yrs old Female presents to ER via EMS with complaints of PEG tube pm1 dislodged. 04:10 Patient last seen at [address] tube in place. Severity of symptoms: Pain is pm1 currently a 0 / 10. The patient has not experienced similar symptoms in the past. Patient checked on by correction and her PEG tube was dislodged. Historical: - Allergies: 01:34 Allopurinol; jd3 01:34 Ciprofloxacin; jd3 01:34 Darvon; jd3 01:34 Hydrochlorothiazide; jd3 01:34 PENICILLINS; jd3 01:34 reserpine; jd3 01:34 Levaquin; jd3 01:34 HYDRALAZINE; jd3 01:34 Demerol; jd3 - Home Meds: 01:34 acetaminophen-codeine 300-30 mg Oral tab 1 tab every 6 hours [Active]; apixaban 2.5 mg jd3 Oral 1 tab twice a day [Active]; Aricept 10 mg Oral tab 1 tab twice a day [Active]; ativan iv 0.5 ml q 8 hrs prn [Active]; atorvastatin 20 mg Oral tab 1 tab nightly [Active]; cyclosporine 0.05 % ophthalmic 1 mL every 12 hours for in both eyes [Active]; escitalopram oxalate 20 mg Oral tab 1 tab nightly [Active]; sucralfate 1 gram Oral tab 1 tab three times a day [Active]; levothyroxine 100 mcg tab 1 tab once daily [Active]; Metoprolol Tartrate 12.5 MG Oral 2 times per day [Active]; Seroquel 25 mg Oral tab 2 tabs nightly [Active]; tramadol 50 mg Oral tab 1 tab q6hrs prn [Active]; Uloric 40 mg Oral tab 1 tab once daily [Active]; valproic acid (as sodium salt) 250 mg/5 mL Oral soln 5 mL twice a day [Active]; - PMHx: 01:34 "heart failure"; DYSPHAGIA; "chronic kidney disease"; Hyperlipidemia; "cognitive jd3 communication deficit"; Depression; CHF; Anemia; Dementia; Hypothyroidism; Anxiety; Hypertension; Atrial Fib; GERD; UTI; - Immunization history:: Adult Immunizations unknown. - Social history:: Smoking status: unknown. - Ebola Screening: : Patient negative for fever greater than or equal to 101.5 degrees Fahrenheit, and additional compatible Ebola Virus Disease symptoms. ROS: 04:10 Constitutional: Negative for fever, chills, and weight loss, Eyes: Negative for injury, pm1 pain, redness, and discharge, ENT: Negative for injury, pain, and discharge, Neck: Negative for injury, pain, and swelling, Cardiovascular: Negative for chest pain, palpitations, and edema, Respiratory: Negative for shortness of breath, cough, wheezing, and pleuritic chest pain, Abdomen/GI: Negative for abdominal pain, nausea, vomiting, diarrhea, and constipation, Back: Negative for injury and pain, : Negative for injury, bleeding, discharge, and swelling, MS/Extremity: Negative for injury and deformity, Skin: Negative for injury, rash, and discoloration, Neuro: Negative for headache, weakness, numbness, tingling, and seizure. 04:10 Unable to obtain ROS due to baseline dementia. Exam: 04:10 Constitutional: This is a well developed, well nourished patient who is awake, alert, pm1 and in no acute distress. Head/Face: Normocephalic, atraumatic. Neck: Trachea midline, no thyromegaly or masses palpated, and no cervical lymphadenopathy. Supple, full range of motion without nuchal rigidity, or vertebral point tenderness. No Meningismus. Chest/axilla: Normal chest wall appearance and motion. Nontender with no deformity. No lesions are appreciated. Cardiovascular: Regular rate and rhythm with a normal S1 and S2. No gallops, murmurs, or rubs. Normal PMI, no JVD. No pulse deficits. Respiratory: Lungs have equal breath sounds bilaterally, clear to auscultation and percussion. No rales, rhonchi or wheezes noted. No increased work of breathing, no retractions or nasal flaring. 04:10 Back: No spinal tenderness. No costovertebral tenderness. Full range of motion. Skin: Warm, dry with normal turgor. Normal color with no rashes, no lesions, and no evidence of cellulitis. MS/ Extremity: Pulses equal, no cyanosis. Neurovascular intact. Full, normal range of motion. 04:10 Abdomen/GI: Inspection: abdomen appears normal, no cellulitis or bleeding present at PEG tube stoma, Bowel sounds: normal, Palpation: abdomen is soft and non-tender. Vital Signs: 01:34 BP 118 / 99; Pulse 58; Resp 19 S; Temp 97.4(A); Pulse Ox 98% on R/A; Weight 113.4 kg jd3 (R); Height 5 ft. 4 in. (162.56 cm) (R); Pain 0/10; 03:21 BP 113 / 58; Pulse 72; Resp 17 S; Pulse Ox 97% on R/A; jd3 04:45 BP 110 / 60; Pulse 68; Resp 18; Pulse Ox 99% on R/A; ea 01:34 Body Mass Index 42.91 (113.40 kg, 162.56 cm) jd3 MDM: 02:15 Patient medically screened. pm1 03:55 Data reviewed: vital signs. Data interpreted: Pulse oximetry: on room air is 97 %. pm1 Interpretation: normal. Counseling: I had a detailed discussion with the patient and/or guardian regarding: the historical points, exam findings, and any diagnostic results supporting the discharge/admit diagnosis, the need for outpatient follow up, to return to the emergency department if symptoms worsen or persist or if there are any questions or concerns that arise at home. 10/07 02:34 Order name: PEG Tube Check w/contrast pm1 Administered Medications: No medications were administered Disposition: 06:50 Co-signature as Attending Physician, Abad Rojas MD Available for consultation at ps1 all times. . Disposition: 10/07/18 03:57 Discharged to Home. Impression: Encounter for attention to gastrostomy - PEG tube replacement. - Condition is Stable. - Discharge Instructions: Gastrostomy Tube Replacement, Gastrostomy Tube Home Guide, Adult. - Medication Reconciliation Form, Thank You Letter, Antibiotic Education, Prescription Opioid Use form. - Follow up: Emergency Department; When: As needed; Reason: Worsening of condition. Follow up: Private Physician; When: 2 - 3 days; Reason: Recheck today's complaints, Continuance of care, Re-evaluation by your physician. - Problem is new. - Symptoms are resolved. Signatures: Dispatcher [employer] EDMS Marbin Pagan NP GUNNERY/ORDNANCE OFFICER pm1 Mary Alice Mayorga RN RN ea Davies, Jonathon, RN RN jAbad Perla MD MD ps1 Corrections: (The following items were deleted from the chart) 03:57 03:57 10/07/2018 03:57 Discharged to Home. Impression: Encounter for attention to pm1 gastrostomy - PEG tube replacement. Condition is Stable. Forms are Medication Reconciliation Form, Thank You Letter, Antibiotic Education, Prescription Opioid Use. Follow up: Emergency Department; When: As needed; Reason: Worsening of condition. Follow up: Private Physician; When: 2 - 3 days; Reason: Recheck today's complaints, Continuance of care, Re-evaluation by your physician. pm1 04:56 03:57 10/07/2018 03:57 Discharged to Home. Impression: Encounter for attention to ea gastrostomy - PEG tube replacement. Condition is Stable. Forms are Medication Reconciliation Form, Thank You Letter, Antibiotic Education, Prescription Opioid Use. Follow up: Emergency Department; When: As needed; Reason: Worsening of condition. Follow up: Private Physician; When: 2 - 3 days; Reason: Recheck today's complaints, Continuance of care, Re-evaluation by your physician. Problem is new. Symptoms are resolved. pm1
--- NOTE | 2018-10-07 07:15 | RAD REPORT ---
EXAM DESCRIPTION: RAD - ENTEROSTOMY TUBE CHECK W/CONTR - 10/07/2018 3:06 am CLINICAL HISTORY: Peg tube placement or repositioning COMPARISON: September 13 FINDINGS: Two KUB examinations were performed offset to the left side of the abdomen. Images were pe rformed prior to and subsequent to retrograde injection of contrast via the replaced or repositioned PEG tube. Both images has significant motion degradation. Injected contrast all appears to be contained within the lumen of the stomach. IMPRESSION: Good positioning of the PEG tube. No extravasation of contrast identified.
== END 2018-10-07 04:56 | disposition home or self-care (01) ==
LOC: ER 01:14
DX: Z43.1 Encounter for attention to gastrostomy (principal); I12.9 Hypertensive chronic kidney disease with stage 1 through stage 4 chronic kidney disease, or unspecified chronic kidney disease; N18.9 Chronic kidney disease, unspecified; I48.91 Unspecified atrial fibrillation; E03.9 Hypothyroidism, unspecified; I50.9 Heart failure, unspecified; Z88.0 Allergy status to penicillin; Z88.3 Allergy status to other anti-infective agents; Z88.5 Allergy status to narcotic agent; Z88.8 Allergy status to other drugs, medicaments and biological substances
CPT/HCPCS: 49465; 99283

== ENCOUNTER 2019-02-03 15:55 | Emergency (ER) | payer OTHER ==
--- OUTSIDE RECORDS SUMMARY | 2019-02-03 15:57 | XMS REPORT | Clinical Summary ---
:1930 [address] [facility] [email or web address] Address [address] [place] [address] Care Team Providers Name Role Phone Anthony Estrella Primary Care Provider Allergies Active Allergy Reactions Severity Noted Date Comments Allopurinol Analogues 05/26/2018 Ciprofloxacin 05/25/2018 Propoxyphene N-Acetaminophen 05/25/2018 Zwmzudqlvtl-Jctfdbcb-Fsbfbxxsr 05/25/2018 Levofloxacin 05/25/2018 Penicillins Rash Low 05/25/2018 [...] 05/25/2018 Orders Only Jaycob Andrade, SHAYNE after 02/02/2018 Social History Tobacco Use Types Packs/Day Years [...] procedure are in the results section. after 02/02/2018 Results RHYTHM STRIP - SCAN (05/31/2018 2:55 PM CDT) Narrative Performed At TRANSFUSION SERVICE REPORT - SCAN (05/28/2018 5:54 PM CDT)Only the most recent of2 resultswithin the time period is included. Narrative Performed At XR chest 1 view portable / bedside (05/28/2018 9:35 AM CDT) Narrative Performed At FINAL REPORT [facility] Comparison: 03/31/2014 TECHNIQUE: Single view of the chest FINDINGS: Lung volumes are low. Bibasilar densities may represent atelectasis. No gross new lung parenchymal changes. Cardiac silhouette is magnified by technique. Left-sided pacing device again noted. Signed: Luciana Squires MD Report Verified Date/Time:05/28/2018 12:17:09 Reading Location: [facility] Radiology Reading Room Procedure Note [...] Report Verified Date/Time: 05/28/2018 12:17:09 Reading Location: [facility] Radiology Reading Room Performing Organization Address City/[facility]/Zipcode Phone Number RIS PT/aPTT (05/28/2018 5:36 AM CDT)Only the most recent of3 resultswithin the time period is included. Protime 13.2 (H) 9.3 - 12.0 sec [facility] INR 1.2 <=5.9 [facility] PTT 37.0 (H) 23.0 - 35.0 sec [facility] Specimen Blood Narrative Performed At [facility] RECOMMENDED COUMADIN/WARFARIN INR THERAPY RANGES STANDARD DOSE: 2.0 - 3.0 Includes: PROPHYLAXIS for venous thrombosis, systemic embolization; TREATMENT for venous thrombosis and/or pulmonary embolus. HIGH RISK: Target INR is 2.5-3.5 for patients with mechanical heart valves. Final Information (Auto Output) Final Information (Auto Output) Final Information (Auto Output) Performing Organization Address City/[facility]/Zipcode Phone Number [facility] [address], [place] [id number] [phone] CBC with platelet count + automated diff [...] Blood Performing Organization Address City/State/Zipcode Phone Number [facility] [address] [place] [address] Phosphorus (05/28/2018 5:36 AM CDT)Only the most recent of3 resultswithin the time period is included. Phosphorus 1.7 (L) 2.5 - 4.5 mg/dL [facility] Specimen Blood Performing Organization Address City/[facility]/Zipcode Phone Number [facility] [address], [place] [phone] Magnesium (05/28/2018 5:36 AM CDT)Only the most recent of3 resultswithin the time period is included. Magnesium 1.3 (L) 1.5 - 3.0 mg/dL [facility] Specimen Blood Performing Organization Address [facility] Cent[facility] Phone Number [facility] [address], [place] [address] [phone] Comprehensive metabolic panel (05/28/2018 5:36 AM CDT)Only [...] 120 (H) 98 - 106 meq/L [facility] CO2 16 (L) 20 - 29 meq/L [facility] BUN 26 10 - 26 mg/dL [facility] Creatinine 0.97 0.50 - 1.20 mg/dL [facility] Glucose 98 70 - 110 mg/dL [facility] Calcium 9.6 8.5 - 10.5 mg/dL [facility] AST 27 5 - 40 U/L [facility] ALT 33 5 - 50 U/L [facility] EGFR 54Comment: ESTIMATED GFR mL/min/1.73 sq m [facility] IS NOT ACCURATE CREATININE CLEARANCE IN PREDICTING GLOMERULAR FILTRATION RATE. ESTIMATED GFR IS NOT APPLICABLE FOR DIALYSIS PATIENTS. Specimen Blood Performing Organization Address [facility] Phone Number [facility] [address], [place] [phone] Prepare plasma (05/27/2018 11:54 PM CDT) Unit ABO A Pos [facility] [place] UNIT NUMBER [id number] [facility] [place] Status TRANSFUSED [facility] [place] Blood Bank Product FFP [facility] [place] PRODUCT CODE [id number] [facility] Specimen Blood Performing Organization Address City/[facility] Cent[facility] Phone Number [facility] Prothrombin time/INR (05/27/2018 4:55 AM CDT)Only the most recent of2 resultswithin the time period is included. Protime 20.5 (H) 9.3 - 12.0 seconds [facility] INR 1.9 <=5.9 [facility] Specimen Blood Narrative Performed At [facility] RECOMMENDED COUMADIN/WARFARIN INR THERAPY RANGES STANDARD DOSE: 2.0 - 3.0 Includes: PROPHYLAXIS for venous thrombosis, systemic embolization; TREATMENT for venous thrombosis and/or pulmonary embolus. HIGH RISK: Target INR is 2.5-3.5 for patients with mechanical heart valves. Performing Organization Address City/[facility] Cent[facility]ode Phone Number [facility] [address] [place] [address] [phone] Occult blood, stool (05/26/2018 6:02 PM CDT) Occult blood Positive (A) Negative [facility] Specimen Stool - Per Rectum Performing Organization Address [facility] Number [address] [id number] [phone] [facility] plasma (05/26/2018 9:14 AM CDT)Only the most recent of2 resultswithin the time period is included.Troponin I (05/26/2018 3:53 AM CDT) Troponin I 0.23 (HH) 0.00 - 0.15 ng/mL [facility] Specimen Blood - Line, Venous Narrative Performed At [facility] Troponin I (TnI) levels must be interpreted [...] disease, and persistent tachyarrhythmia. Performing Organization Address [facility]d Phone Number [facility] [address], [place] [phone] Type and screen (05/26/2018 3:18 AM CDT) Ab Scrn NEGATIVE [facility] ABO Grouping A [facility] Rh Factor POS [facility] Specimen Blood - Line, Venous Performing Organization Address City/[facility] Phone Number [facility] [address] [place], [place] [phone] [facility] B-type Natriuretic Factor (BNP) (05/26/2018 3:18 AM CDT) BNP 736 (H) 0 - 100 pg/mL [facility] Specimen Blood - Line, Venous Performing Organization Address [facility] Phone Number [facility] [address], [place] [address] Urinalysis w/ Microscopic (05/26/2018 1:50 AM CDT) Color, UA Yellow [facility] Clarity, UA Slightly Cloudy [facility] Specific [place], UA 1.015 1.001 - 1.035 [facility] pH, UA 8.0 5.0 - 8.[address] [facility] Protein, UA 100 mg/dL (A) Negative [facility] Glucose, UA Negative Negative [facility] Ketones, UA Trace (A) Negative [facility] Bilirubin, UA Positive (A) Negative [facility] Blood, UA Large (A) Negative [facility] Nitrite, UA Positive (A) Negative [facility] Leukocytes, UA Large (A) Negative [facility] Urobilinogen, UA 1.0 0.2 - 1.0 mg/dL [facility] Bacteria, UA Many [facility] RBC, UA >100 /HPF [facility] WBC, UA 50-100 /HPF [facility] SQUAMOUS EPITHELIAL 5-10 /HPF [facility] Specimen Source [facility] Specimen Urine - Urine, Don Performing Organization Address [facility] Phone Number [facility] [address], [place] [phone] Basic metabolic panel (05/26/2018 1:48 AM CDT) Sodium 145 135 - 148 meq/L [facility] Potassium 4.4Comment: Specimen moderately 3.6 - 5.5 meq/L [facility] hemolyzed Chloride 118 (H) 98 - 106 meq/L [facility] CO2 15 (L) 20 - 29 meq/L [facility] BUN 51 (H) 10 - 26 mg/dL [facility] Creatinine 1.37 (H)Comment: Specimen 0.50 - 1.20 mg/dL [facility] moderately hemolyzed Glucose 106 70 - 110 mg/dL [facility] Calcium 11.8 (H) 8.5 - 10.5 mg/dL [facility] EGFR 36Comment: ESTIMATED GFR IS NOT mL/min/1.73 sq m [facility] ACCURATE CREATININE CLEARANCE IN PREDICTING GLOMERULAR FILTRATION RATE. ESTIMATED GFR IS NOT APPLICABLE FOR DIALYSIS PATIENTS. Specimen Blood - Arm, Left Performing Organization Address [facility] Phone Number [facility] [address], [place] [phone] Urine culture (05/26/2018 1:08 AM CDT) Result PROTEUS MIRABILIS (A) [facility] Specimen Urine - Urine, Clean Catch [...] + Sulfamethoxazole <=20: Susceptible Performing Organization Address [facility] Phone Number [facility] [address], [place] [phone] after 02/02/2018 Insurance Payer Benefit Plan / Group Subscriber ID Type Phone Address MEDICARE MEDICARE A B xxxxxxxxxx Medicare MCR [employer] SENIOR SUPPLEMENTAL xxxxxxxxxx SUPPLEMENT/INDIVIDUAL (Home) [place] [address] Advance Directives Patient has advance care planning documents, and code status on file. For more information, please contact:[address], [place] [phone] Code Status Date Activated Date Inactivated Comments Full Code 05/26/2018 12:08 AM 05/28/2018 9:10 PM This code status was determined by: Patient
--- OUTSIDE RECORDS SUMMARY | 2019-02-03 15:58 | XMS REPORT ---
:1930 Author Organization [facility] Address [address] [place] [address] Care Team Providers Name Role Phone GAUDENCIO CONNELLY Unavailable Unavailable Problems This patient has no known problems. Allergies, Adverse Reactions, Alerts This patient has no known allergies or adverse reactions. Medications This patient has no known medications. Results Test Description Test Time Test Comments Text Results Atomic Results Result Comments URINE CULTURE 2018-05-29 08:41:00 Test Item Value Reference Range Comments CULTURE (BEAKER) (test cvku=6540) PROTEUS MIRABILIS >100,000 col/mL Proteus mirabilis Amikacin (test code=1) Ampicillin + Sulbactam (test code=6) Aztreonam (test code=32) Cefazolin (test code=9) Cefepime (test code=51) Cefoxitin (test code=68) Ceftazidime (test code=27) Ceftriaxone (test code=52) Ertapenem (test code=38) Gentamicin (test code=18) Levofloxacin (test code=22) Meropenem (test code=34) Nitrofurantoin (test code=23) Piperacillin + Tazobactam (test code=29) Tetracycline (test code=2) Tigecycline (test kzrw=085) Tobramycin (test code=25) Trimethoprim + Sulfamethoxazole (test code=47) RAD, CHEST, 1 VIEW, NON [id number] 12:17:00Reason for exam:-> pneumoniaShould this be performed at the bedside?->YesFINAL REPORT Comparison: 03/31/2014 TECHNIQUE: Single view of the chest FINDINGS : Lung volumes are low. Bibasilar densities may represent atelectasis. No gross new lung parenchymal changes. Cardiac silhouette is magnified by technique. Left -sided pacing device again noted. Signed: Luciana Squires MDReport Verified Date/ Time: 05/28/2018 12:17:09 Reading Location: [facility] Radiology Reading Room COMPREHENSIVE METABOLIC [id number] 06:24:00 Test Item Value Reference Range Comments TOTAL PROTEIN (BEAKER) 4.8 gm/dL 6.0-8.5 (test omeo=439) ALBUMIN (BEAKER) (test 2.5 g/dL 3.5-5.0 pyha=7975) ALKALINE PHOSPHATASE 129 U/L 30-115 (BEAKER) (test zygj=656) BILIRUBIN TOTAL (BEAKER) 0.5 mg/dL 0.1-1.2 (test tpup=312) SODIUM (BEAKER) (test 144 meq/L 135-148 snhn=574) POTASSIUM (BEAKER) (test 3.3 meq/L 3.6-5.5 xwmz=763) CHLORIDE (BEAKER) (test 120 meq/L 98-106 pwud=686) CO2 (BEAKER) (test 16 meq/L 20-29 aeav=586) BLOOD UREA NITROGEN 26 mg/dL 10-26 (BEAKER) (test sssd=302) CREATININE (BEAKER) (test 0.97 mg/dL 0.50-1.20 uyyv=450) GLUCOSE RANDOM (BEAKER) 98 mg/dL 70-110 (test ybsg=644) CALCIUM (BEAKER) (test 9.6 mg/dL 8.5-10.5 fdeo=244) AST (SGOT) (BEAKER) (test 27 U/L 5-40 imbk=880) ALT (SGPT) (BEAKER) (test 33 U/L 5-50 turp=075) EGFR (BEAKER) (test 54 mL/min/1.73 sq m ESTIMATED GFR IS NOT lgdi=2785) ACCURATE CREATININE CLEARANCE IN PREDICTING GLOMERULAR FILTRATION RATE. ESTIMATED GFR IS NOT APPLICABLE FOR DIALYSIS PATIENTS. [id number] 06:15:00 Test Item Value Reference Range Comments PHOSPHORUS (BEAKER) (test pqcp=888) 1.7 mg/dL 2.5-4.5 [id number] 06:10:00 Test Item Value Reference Range Comments MAGNESIUM (BEAKER) (test vsqb=707) 1.3 mg/dL 1.5-3.0 [id number] 06:00:00 Test Item Value Reference Range Comments PROTIME (BEAKER) (test clpd=966) 13.2 sec 9.3-12.0 INR (BEAKER) (test zcgq=329) 1.2 <=5.9 PARTIAL THROMBOPLASTIN TIME (BEAKER) (test 37.0 sec 23.0-35.0 pbaf=904) RECOMMENDED COUMADIN/WARFARIN INR THERAPY RANGESSTANDARD DOSE: 2.0 - 3.0 Includes: PROPHYLAXIS forvenous thrombosis, systemic embolization; TREATMENT for venous thrombosis and/or pulmonary embolus.HIGH RISK: Target INR is 2.5-3.5 for patients with mechanical heart valves.Final Information (Auto Output)Final Information (Auto Output)Final Information (Auto Output)CBC W/PLT COUNT & AUTO [id number] 05:55:00 Test Item Value Reference Range Comments WHITE BLOOD CELL COUNT (BEAKER) (test idja=283) 8.0 K/ L 4.0-10.0 RED BLOOD CELL COUNT (BEAKER) (test lcro=394) 3.56 M/ L 4.00-5.00 HEMOGLOBIN (BEAKER) (test xemt=042) 11.5 GM/DL 12.0-15.0 HEMATOCRIT (BEAKER) (test tqqg=805) 34.5 % 36.0-45.0 MEAN CORPUSCULAR VOLUME (BEAKER) (test wxec=519) 96.8 fL 82.0-99.0 MEAN CORPUSCULAR HEMOGLOBIN (BEAKER) (test 32.2 pg 27.0-33.0 hdga=268) MEAN CORPUSCULAR HEMOGLOBIN CONC (BEAKER) (test 33.3 GM/DL 32.0-36.0 vvrf=461) RED CELL DISTRIBUTION WIDTH (BEAKER) (test 14.6 % 10.3-14.2 vcdw=285) PLATELET COUNT (BEAKER) (test kasn=479) 103 K/CU MM 150-430 MEAN PLATELET VOLUME (BEAKER) (test pbsj=858) 11.0 fL 6.5-10.5 NUCLEATED RED BLOOD CELLS (BEAKER) (test 0 /100 WBC 0-0 krgm=562) NEUTROPHILS RELATIVE PERCENT (BEAKER) (test 70 % dlfm=984) LYMPHOCYTES RELATIVE PERCENT (BEAKER) (test 15 % jbor=429) MONOCYTES RELATIVE PERCENT (BEAKER) (test 12 % khcv=460) EOSINOPHILS RELATIVE PERCENT (BEAKER) (test 2 % fynh=497) BASOPHILS RELATIVE PERCENT (BEAKER) (test 1 % dunn=364) NEUTROPHILS ABSOLUTE COUNT (BEAKER) (test 5.60 K/ L 1.80-8.00 yblc=483) LYMPHOCYTES ABSOLUTE COUNT (BEAKER) (test 1.20 K/ L 1.48-4.50 dvor=651) MONOCYTES ABSOLUTE COUNT (BEAKER) (test 1.00 K/ L 0.00-1.30 ysrl=972) EOSINOPHILS ABSOLUTE COUNT (BEAKER) (test 0.20 K/ L 0.00-0.50 uqls=795) BASOPHILS ABSOLUTE COUNT (BEAKER) (test 0.00 K/ L 0.00-0.20 admt=664) [id number] 06:06:00 Test Item Value Reference Range Comments PHOSPHORUS (BEAKER) (test 1.3 mg/dL 2.5-4.5 Specimen slightly hemolyzed wedq=473) [id number] 05:52:00 Test Item Value Reference Range Comments PROTIME (BEAKER) (test kimu=021) 20.5 seconds 9.3-12.0 INR (BEAKER) (test nqhr=406) 1.9 <=5.9 PARTIAL THROMBOPLASTIN TIME (BEAKER) (test 36.9 seconds 23.0-35.0 jbox=807) RECOMMENDED COUMADIN/WARFARIN INR THERAPY RANGESSTANDARD DOSE: 2.0 - 3.0 Includes: PROPHYLAXIS forvenous thrombosis, systemic embolization; TREATMENT for venous thrombosis and/or pulmonary embolus.HIGH RISK: Target INR is 2.5-3.5 for patients with mechanical heart valves.PROTHROMBIN [id number] 05:52: 00 Test Item Value Reference Range Comments PROTIME (BEAKER) (test zjje=744) 20.5 seconds 9.3-12.0 INR (BEAKER) (test otgd=930) 1.9 <=5.9 RECOMMENDED COUMADIN/WARFARIN INR THERAPY RANGESSTANDARD DOSE: 2.0 - 3.0 Includes: PROPHYLAXIS forvenous thrombosis, systemic embolization; TREATMENT for venous thrombosis and/or pulmonary embolus.HIGH RISK: Target INR is 2.5-3.5 for patients with mechanical heart valves.COMPREHENSIVE METABOLIC [id number] 05:34:00 Test Item Value Reference Range Comments TOTAL PROTEIN (BEAKER) 5.8 gm/dL 6.0-8.5 Specimen slightly (test lwjf=066) hemolyzed ALBUMIN (BEAKER) (test 3.0 g/dL 3.5-5.0 Specimen slightly xsfh=8293) hemolyzed ALKALINE PHOSPHATASE 155 U/L 30-115 (BEAKER) (test qqsg=656) BILIRUBIN TOTAL (BEAKER) 0.5 mg/dL 0.1-1.2 Specimen slightly (test olim=803) hemolyzed SODIUM (BEAKER) (test 147 meq/L 135-148 cfjf=327) POTASSIUM (BEAKER) (test 3.1 meq/L 3.6-5.5 Specimen slightly zeid=908) hemolyzed CHLORIDE (BEAKER) (test 118 meq/L 98-106 iees=210) CO2 (BEAKER) (test 18 meq/L 20-29 pljg=203) BLOOD UREA NITROGEN 35 mg/dL 10-26 (BEAKER) (test xvzw=838) CREATININE (BEAKER) (test 1.09 mg/dL 0.50-1.20 Specimen slightly jpqt=663) hemolyzed GLUCOSE RANDOM (BEAKER) 99 mg/dL 70-110 (test tthh=995) CALCIUM (BEAKER) (test 11.0 mg/dL 8.5-10.5 mfgm=841) AST (SGOT) (BEAKER) (test 37 U/L 5-40 Specimen slightly mnsg=334) hemolyzed ALT (SGPT) (BEAKER) (test 51 U/L 5-50 Specimen slightly kimw=520) hemolyzed EGFR (BEAKER) (test 47 mL/min/1.73 sq m ESTIMATED GFR IS NOT mgjp=3704) ACCURATE CREATININE CLEARANCE IN PREDICTING GLOMERULAR FILTRATION RATE. ESTIMATED GFR IS NOT APPLICABLE FOR DIALYSIS PATIENTS. [id number] 05:25:00 Test Item Value Reference Range Comments MAGNESIUM (BEAKER) (test 1.6 mg/dL 1.5-3.0 Specimen slightly hemolyzed vlzh=851) CBC W/PLT COUNT & AUTO [id number] 05:13:00 Test Item Value Reference Range Comments WHITE BLOOD CELL COUNT (BEAKER) (test cnip=216) 12.9 K/ L 4.0-10.0 RED BLOOD CELL COUNT (BEAKER) (test gghy=516) 4.03 M/ L 4.00-5.00 HEMOGLOBIN (BEAKER) (test ofhl=642) 12.9 GM/DL 12.0-15.0 HEMATOCRIT (BEAKER) (test ygfv=110) 38.8 % 36.0-45.0 MEAN CORPUSCULAR VOLUME (BEAKER) (test byri=337) 96.3 fL 82.0-99.0 MEAN CORPUSCULAR HEMOGLOBIN (BEAKER) (test 31.9 pg 27.0-33.0 edai=732) MEAN CORPUSCULAR HEMOGLOBIN CONC (BEAKER) (test 33.2 GM/DL 32.0-36.0 hjih=315) RED CELL DISTRIBUTION WIDTH (BEAKER) (test 14.5 % 10.3-14.2 sukc=099) PLATELET COUNT (BEAKER) (test vosy=667) 164 K/CU MM 150-430 MEAN PLATELET VOLUME (BEAKER) (test ajue=479) 11.5 fL 6.5-10.5 NUCLEATED RED BLOOD CELLS (BEAKER) (test 0 /100 WBC 0-0 kprs=582) NEUTROPHILS RELATIVE PERCENT (BEAKER) (test 79 % gwbq=553) LYMPHOCYTES RELATIVE PERCENT (BEAKER) (test 9 % zcwv=257) MONOCYTES RELATIVE PERCENT (BEAKER) (test 10 % czoi=256) EOSINOPHILS RELATIVE PERCENT (BEAKER) (test 1 % ngfx=409) BASOPHILS RELATIVE PERCENT (BEAKER) (test 0 % aebz=710) NEUTROPHILS ABSOLUTE COUNT (BEAKER) (test 10.20 K/ L 1.80-8.00 luqp=888) LYMPHOCYTES ABSOLUTE COUNT (BEAKER) (test 1.20 K/ L 1.48-4.50 gjbv=006) MONOCYTES ABSOLUTE COUNT (BEAKER) (test 1.30 K/ L 0.00-1.30 unss=187) EOSINOPHILS ABSOLUTE COUNT (BEAKER) (test 0.10 K/ L 0.00-0.50 orou=937) BASOPHILS ABSOLUTE COUNT (BEAKER) (test 0.00 K/ L 0.00-0.20 dyps=859) OCCULT BLOOD, [id number] 18:13:00 Test Item Value Reference Range Comments FECAL OCCULT BLOOD (BEAKER) (test glps=666) Positive Negative PROTHROMBIN [id number] 16:59:00 Test Item Value Reference Range Comments PROTIME (BEAKER) (test oavv=746) 70.5 sec 9.3-12.0 INR (BEAKER) (test mkqb=745) 7.2 <=5.9 RECOMMENDED COUMADIN/WARFARIN INR THERAPY RANGESSTANDARD DOSE: 2.0 - 3.0 Includes: PROPHYLAXIS forvenous thrombosis, systemic embolization; TREATMENT for venous thrombosis and/or pulmonary embolus.HIGH RISK: Target INR is 2.5-3.5 for patients with mechanical heart valves.Final Information (Auto Output)Final Information (Auto Output)TROPONIN [id number] 05:46:00 Test Item Value Reference Range Comments TROPONIN I (BEAKER) (test hdbp=870) 0.23 ng/mL 0.00-0.15 Troponin I (TnI) levels [...] NATRIURETIC PEPTIDE (BEAKER) (test 736 pg/mL 0-100 mcit=821) CBC W/PLT COUNT & AUTO [id number] 04:08:00 Test Item Value Reference Range Comments WHITE BLOOD CELL COUNT (BEAKER) (test musy=619) 12.3 K/ L 4.0-10.0 RED BLOOD CELL COUNT (BEAKER) (test sswb=688) 4.41 M/ L 4.00-5.00 HEMOGLOBIN (BEAKER) (test jfiw=050) 13.0 GM/DL 12.0-15.0 HEMATOCRIT (BEAKER) (test mxrq=580) 42.0 % 36.0-45.0 MEAN CORPUSCULAR VOLUME (BEAKER) (test vyea=532) 95.2 fL 82.0-99.0 MEAN CORPUSCULAR HEMOGLOBIN (BEAKER) (test 29.5 pg 27.0-33.0 rhia=637) MEAN CORPUSCULAR HEMOGLOBIN CONC (BEAKER) (test 31.0 GM/DL 32.0-36.0 buhr=030) RED CELL DISTRIBUTION WIDTH (BEAKER) (test 13.6 % 10.3-14.2 dzsy=952) PLATELET COUNT (BEAKER) (test lfbm=666) 181 K/CU MM 150-430 MEAN PLATELET VOLUME (BEAKER) (test ddnv=607) 12.5 fL 6.5-10.5 NEUTROPHILS RELATIVE PERCENT (BEAKER) (test 79 % qeam=342) LYMPHOCYTES RELATIVE PERCENT (BEAKER) (test 10 % toud=064) MONOCYTES RELATIVE PERCENT (BEAKER) (test 11 % limf=066) EOSINOPHILS RELATIVE PERCENT (BEAKER) (test 0 % taxr=428) BASOPHILS RELATIVE PERCENT (BEAKER) (test 0 % fdqb=964) NEUTROPHILS ABSOLUTE COUNT (BEAKER) (test 9.60 K/ L 1.80-8.00 kjqs=282) LYMPHOCYTES ABSOLUTE COUNT (BEAKER) (test 1.30 K/ L 1.48-4.50 ltjc=900) MONOCYTES ABSOLUTE COUNT (BEAKER) (test 1.30 K/ L 0.00-1.30 ksbe=739) EOSINOPHILS ABSOLUTE COUNT (BEAKER) (test 0.00 K/ L 0.00-0.50 nflr=685) BASOPHILS ABSOLUTE COUNT (BEAKER) (test 0.00 K/ L 0.00-0.20 ifsq=837) [id number] 02:35:00 Test Item Value Reference Range Comments PHOSPHORUS (BEAKER) (test 1.4 mg/dL 2.5-4.5 Specimen moderately hemolyzed dwbo=905) BASIC METABOLIC [id number] 02:34:00 Test Item Value Reference Range Comments SODIUM (BEAKER) (test 145 meq/L 135-148 pvhg=335) POTASSIUM (BEAKER) (test 4.4 meq/L 3.6-5.5 Specimen moderately xcza=873) hemolyzed CHLORIDE (BEAKER) (test 118 meq/L 98-106 khbn=921) CO2 (BEAKER) (test 15 meq/L 20-29 pgop=806) BLOOD UREA NITROGEN 51 mg/dL 10-26 (BEAKER) (test ncuu=576) CREATININE (BEAKER) (test 1.37 mg/dL 0.50-1.20 Specimen moderately drew=935) hemolyzed GLUCOSE RANDOM (BEAKER) 106 mg/dL 70-110 (test mowu=068) CALCIUM (BEAKER) (test 11.8 mg/dL 8.5-10.5 zosw=863) EGFR (BEAKER) (test 36 mL/min/1.73 sq m ESTIMATED GFR IS NOT oueb=0235) ACCURATE CREATININE CLEARANCE IN PREDICTING GLOMERULAR FILTRATION RATE. ESTIMATED GFR IS NOT APPLICABLE FOR DIALYSIS PATIENTS. [id number] 02:20:00 Test Item Value Reference Range Comments MAGNESIUM (BEAKER) (test 2.4 mg/dL 1.5-3.0 Specimen moderately hemolyzed rzhc=677) [id number] 02:20:00 Test Item Value Reference Range Comments PROTIME (BEAKER) (test pmhd=998) 76.0 sec 9.3-12.0 INR (BEAKER) (test juqy=942) 7.8 <=5.9 PARTIAL THROMBOPLASTIN TIME (BEAKER) (test 63.2 sec 23.0-35.0 qvri=178) RECOMMENDED COUMADIN/WARFARIN INR THERAPY RANGESSTANDARD DOSE: 2.0 - 3.0 Includes: PROPHYLAXIS forvenous thrombosis, systemic embolization; TREATMENT for venous thrombosis and/or pulmonary embolus.HIGH RISK: Target INR is 2.5-3.5 for patients with mechanical heart valves.Final Information (Auto Output)Final Information (Auto Output)Final Information (Auto Output)URINALYSIS W/ [id number] 02:19:00 Test Item Value Reference Range Comments COLOR (BEAKER) (test ouaf=056) Yellow CLARITY (BEAKER) (test unfc=003) Slightly Cloudy SPECIFIC GRAVITY UA (BEAKER) (test jqvt=833) 1.015 1.001-1.035 PH UA (BEAKER) (test pwav=167) 8.0 5.0-8.0 PROTEIN UA (BEAKER) (test wicp=061) 100 mg/dL Negative GLUCOSE UA (BEAKER) (test embh=255) Negative Negative KETONES UA (BEAKER) (test fver=391) Trace Negative BILIRUBIN UA (BEAKER) (test glek=611) Positive Negative BLOOD UA (BEAKER) (test hyip=592) Large Negative NITRITE UA (BEAKER) (test gurw=343) Positive Negative LEUKOCYTE ESTERASE UA (BEAKER) (test Large Negative lwyx=068) UROBILINOGEN UA (BEAKER) (test jsmo=593) 1.0 mg/dL 0.2-1.0 BACTERIA (BEAKER) (test pqjd=063) Many RBC UA-MANUAL (BEAKER) (test rlpe=0463) >100 /HPF WBC UA-MANUAL (BEAKER) (test vjri=8572) 50-100 /HPF SQUAMOUS EPITHELIAL MANUAL (BEAKER) (test 5-10 /HPF rkkz=3325) SOURCE(BEAKER) (test bnzy=9244)
[2019-02-03 16:50] LABS: Blood Gas Oxyhemoglobin 97.4 % (94-97)
--- NOTE | 2019-02-03 17:20 | RAD REPORT ---
EXAM DESCRIPTION: RAD - Chest Single View - 02/03/2019 5:03 pm CLINICAL HISTORY: Dyspnea COMPARISON: None. TECHNIQUE: AP portable chest image was obtained 1702 hours . FINDINGS: Lung volumes are low. Right hemithorax volume is further reduced by substantially elevated right hemidiaphragm. Heart size is normal. Right heart border is obscured by the elevated right elvis diaphragm. No measurable pleural effusion and no pneumothorax. No acute bony abnormality seen. No acu te aortic findings suspected. IMPRESSION: No acute cardiopulmonary process. Significant right hemidiaphragm elevation is present. Right lung base infiltrate or pleural effusion are doubtful but could potentially masked in this setting.
[2019-02-03 17:30] LABS: Absolute Lymphocytes (CBC) 0.8 K/uL (0.7-4.9); Absolute Monocytes 0.9 K/uL (0.1-1.3); Absolute Neutrophil 13.2 K/uL (1.8-8.0); Basophils % 0.1 % (0-1.3); Eosinophils % 0.2 % (0-4.4); Hematocrit 41.1 % (36.0-45.0); Lymphocytes % 5.3 % (15.3-44.8); MPV 8.6 fL (7.6-11.3); Monocytes % 6.2 % (3.3-12.3); RBC Red Blood Cell Count 4.33 M/uL (3.86-4.86)
[2019-02-03 17:33] LABS: Protime INR 1.24
[2019-02-03] MEDS ORDERED: NOREPINEPHRINE 4mg/D5W 250mL 4 MG/250 ML BAG IV ONE (18:29)
[2019-02-03 18:45] LABS: Blood Morphology Comment NOT SEEN (NOT SEEN); Platelet Estimate ADEQ
[2019-02-03 19:06] LABS: Creatine Phosphokinase 39 U/L (26-192); Lipase 4413 U/L (73-393)
[2019-02-03] MEDS ORDERED: NA CHLORIDE 0.9% 2,000 ML ONE (19:12)
[2019-02-03] MEDS ORDERED: NA CHLORIDE 0.9% 250 ML ONE (19:12)
[2019-02-03] MEDS ORDERED: CEFTRIAXONE/SWI 1gm 1 GM/10 ML SYR ONE (19:12)
[2019-02-03] MEDS ORDERED: AZITHROMYCIN 500 MG INJ IVPB ONE (19:12)
[2019-02-03 19:40] LABS: Albumin 1.8 g/dL (3.4-5.0); Bilirubin Direct 0.1 mg/dL (0-0.2); Bilirubin Total 0.2 mg/dL (0.2-1.0); Magnesium 1.5 mg/dL (1.8-2.4); Potassium 3.7 mmol/L (3.5-5.1); Protein, Total 5.7 g/dL (6.4-8.2); Troponin (Emerg Dept Use Only) 0.04 ng/mL (0.0-0.045)
[2019-02-03 19:44] LABS: Urine Bacteria 20-50 /HPF (<20); Urine Culture Reflex Order NOT NEEDED; Urine RBC <5 /HPF (NONE SEEN)
[2019-02-03] MEDS ORDERED: NOREPINEPHRINE 4 MG in D5W 250 ML IV PRN (19:48)
[2019-02-03] MEDS ORDERED: ONDANSETRON 4 MG/2 ML VIAL IV PRN (19:48)
[2019-02-03] MEDS ORDERED: FENTANYL CITR 100 MCG/2 ML IV PRN (19:48)
[2019-02-03] MEDS ORDERED: MAGNESIUM HYDROXIDE 8% 30 ML PO PRN (19:48)
[2019-02-03] MEDS ORDERED: ACETAMINOPHEN 500 MG TAB PO PRN (19:48)
[2019-02-03] MEDS ORDERED: IPRATROPIUM BROM 0.5MG/2.5ML NEB SCH (20:00)
[2019-02-03] MEDS ORDERED: ALBUTEROL 2.5 MG/3 ML NEB SOL NEB SCH (20:00)
[2019-02-03] MEDS ORDERED: NA CHLORIDE 0.9% 1,000 ML IV SCH (20:00)
--- NOTE | 2019-02-03 20:18 | ER ---
Nurse's Notes [facility] Name: Sally Suárez Age: 88 yrs Sex: Female : 1930 Arrival Date: 02/03/2019 Time: 15:57 Bed 4 Private MD: Diagnosis: Respiratory arrest;Septic Shock Presentation: 02/03 16:09 Presenting complaint: EMS states: Pt from [facility], called for complaint of ph respiratory distress, Spo2 90% RA, improved to 100% on CPAP audible crackles, staff suctioned large amount white/clear secretions, hx of CHF, crackles in all lung gruber, pt aphasic and staff reports that baseline mental status is A\\T\\O x 0. Transition of care: patient was not received from another setting of care. Onset of symptoms was February 03, 2019. Risk Assessment: Do you want to hurt yourself or someone else? Patient reports no desire to harm self or others. Initial Sepsis Screen: Does the patient meet any 2 criteria? No. Patient's initial sepsis screen is negative. Does the patient have a suspected source of infection? Yes: Productive cough/pneumonia. Care prior to arrival: placed on CPAP Medication(s) given: Albuterol Neb Atrovent Neb. 16:09 Method Of Arrival: EMS: [facility] ph 16:09 Acuity: LORE 2 ph 16:30 Acuity: LORE 1 aj1 Historical: - Allergies: 16:00 Allopurinol; rb1 16:00 Ciprofloxacin; rb1 16:00 Darvon; rb1 16:00 Demerol; rb1 16:00 HYDRALAZINE; rb1 16:00 Hydrochlorothiazide; rb1 16:00 Levaquin; rb1 16:00 PENICILLINS; rb1 16:00 reserpine; rb1 - Home Meds: 16:00 Metoprolol Tartrate 12.5 MG Oral 2 times per day [Active]; ranitidine 10 mg Oral 2 rb1 times per day [Active]; valproic acid (as sodium salt) 250 mg/5 mL Oral soln 5 mL twice a day [Active]; acetaminophen-codeine 300-30 mg Oral tab 1 tab every 6 hours [Active]; Aricept 10 mg Oral tab 1 tab twice a day [Active]; levothyroxine 100 mcg tab 1 tab once daily [Active]; Uloric 40 mg Oral tab 1 tab once daily [Active]; apixaban 2.5 mg Oral 1 tab twice a day [Active]; escitalopram oxalate 20 mg Oral tab 1 tab nightly [Active]; atorvastatin 20 mg Oral tab 1 tab nightly [Active]; cyclosporine 0.05 % ophthalmic 1 mL every 12 hours for in both eyes [Active]; tramadol 50 mg Oral tab 1 tab q6hrs prn [Active]; nystatin Powder [Active]; - PMHx: 16:00 "chronic kidney disease"; "cognitive communication deficit"; "heart failure"; Anemia; rb1 Anxiety; Atrial Fib; CHF; Dementia; Depression; DYSPHAGIA; GERD; Hyperlipidemia; Hypertension; Hypothyroidism; UTI; Gout; Hallucinations; hypercalcemia; Major Depressive Disorder; Pneumonia; - PSHx: 16:00 G-Tube; Pacemaker; rb1 - Immunization history:: Adult Immunizations unknown. - Social history:: Smoking status: unknown. - Ebola Screening: : Patient negative for fever greater than or equal to 101.5 degrees Fahrenheit, and additional compatible Ebola Virus Disease symptoms. Screenin:45 Abuse screen: patient is unable to answer screening questions as she is nonverbal. aj1 16:45 Nutritional screening: On patient has a PEG tube. Tuberculosis screening: No symptoms aj1 or risk factors identified. Fall Risk No fall in past 12 months (0 pts). Secondary diagnosis (15 points) dementia, IV access (20 points). Ambulatory Aid- None/Bed Rest/Nurse Assist (0 pts). Gait- Normal/Bed Rest/Wheelchair (0 pts) Mental Status- Overestimates/Forgets Limitations (15 pts.). Total Carson Fall Scale indicates High Risk Score (45 or more points). Side Rails Up X 2 Frequent Obs/Assessments Occuring. Assessment: 16:30 Reassessment: ERP at bedside, BP noted to have dropped to 75/46, pt moved to bed 4, ph report given to Delisa Friend RN. 16:45 General: Appears distressed, ill, unkempt, Behavior is flat. Pain: Unable to use pain aj1 scale. Does not appear to understand pain scale. Neuro: Level of Consciousness is awake, Oriented to none Patient is unable to follow commands at this time. Speech incomprehensible sounds. Cardiovascular: Heart tones S1 S2 present Capillary refill is sluggish Pulses are palpable in right radial artery and left radial artery Edema is 3+ to right foot and right knee and right lower thigh and right upper thigh and left hand and left wrist and left forearm and left foot and left knee and left lower thigh and left upper thigh and pubic area and waist and right hand and right wrist and right forearm Rhythm is paced. Respiratory: Airway is patent Trachea midline Respiratory effort is even, unlabored, Respiratory pattern is regular, symmetrical, tachypnea Breath sounds with rhonchi bilaterally. the patient has moderate shortness of breath. GI: Abdomen is round obese, noted to have ascites, PEG tube in place, clamped. Abd is soft X 4 quads. : Swelling noted on labia on perineum skin around labia, in thigh folds, under stomach folds, and on the buttocks is excoriated, some areas are bleeding. Derm: Skin is moist, Skin is pale, Skin temperature is cold. Musculoskeletal:. 17:30 Reassessment:. General: Appears in no apparent distress. uncomfortable, Behavior is aj1 flat. Pain: Unable to use pain scale. Does not appear to understand pain scale. Neuro: Level of Consciousness is awake, Oriented to none Patient makes incomprehensible sounds, will occasionally turn eyes and look at staff when she is being talked to, but most times does not respond except to painful stimuli. . Cardiovascular: Capillary refill is sluggish Rhythm is paced. Respiratory: Airway is patent Respiratory effort is even, unlabored, Respiratory pattern is regular, symmetrical, Breath sounds with rhonchi bilaterally. GI: Abdomen is round obese, noted to have ascites. EENT: Nares with drainage noted. Derm: Skin is pale. 17:35 Reassessment: Warming blanket placed on patient. aj1 18:55 Reassessment: BP down to 72/29. FERMIN Shah at bedside to explain to family patient aj1 prognosis. Order received to increased Levophed to 10mcg/min. 19:30 Reassessment: Notified FERMIN Shah of patient's continued hypothermia. Patient's aj1 fluids placed through fluid warmer. 19:30 General: Appears in no apparent distress. uncomfortable, ill, Behavior is flat. Pain: aj1 Unable to use pain scale. Does not appear to understand pain scale. Neuro: Level of Consciousness is awake, Oriented to none No changes since previous mental status assessment. . Cardiovascular: Capillary refill is sluggish Pulses are palpable in right radial artery and left radial artery Rhythm is paced. Respiratory: Airway is patent Respiratory effort is even, unlabored, Respiratory pattern is regular, symmetrical, Breath sounds with rhonchi bilaterally. GI: Abdomen is round obese, noted to have ascites. : Singh in place Patient has poor urinary output to singh catheter at this time. Provider aware. Derm: Skin is pale. 19:47 Reassessment:. aj1 20:00 Reassessment: Notified FERMIN Shah of patient's current vital signs. Order received aj1 to give 2nd liter on NS at 75cc/hr, continue warmed fluids and warming blanket, continue Levophed at present rate. Continue to hold Lasix at this time. Order received to go ahead and transport patient to CT. 20:25 Reassessment:. General: Appears uncomfortable, ill. Pain: Unable to use pain scale. aj1 Neuro: Level of Consciousness is awake, Oriented to none No changes to mental status since previous assessment. . Cardiovascular: Heart tones S1 S2 present Capillary refill is sluggish Rhythm is paced. Respiratory: Airway is patent Trachea midline Respiratory effort is even, unlabored, Respiratory pattern is regular, symmetrical, Breath sounds with rhonchi bilaterally. GI: Abdomen is round obese, noted to have ascites. : Singh in place poor output continues to singh catheter. Provider aware. Derm: Skin is pale. 20:33 Reassessment: Patient transported to CT via stretcher, on monitor, on non-rebreather. aj1 Vital signs BP 103/89 HR 66 RR 23 O2 sat 100% on non-rebreather. Patient was accompanied by myself, LINDA Schuler, and [place], automotive paint technician. Patient maintained 96-100% O2 sat during CT scan. 20:43 Reassessment: Upon moving patient out of CT scan RR is 32, O2 sat reads at 95%, but aj1 patient appears distressed, patient's face began turning red, patient was moved onto stretcher and transported back to ER room 4, during transport patient became cyanotic, respirations became agonal, and O2 sat would no longer register. FERMIN Shah and Dr. Cavazos at bedside. Patient is DNR and DNI per family request. 20:45 Reassessment: Time of declared by FERMIN Shah. aj1 21:00 Reassessment: Spoke with Radames Rodriguez at [facility]. Patient is not a candidate for aj1 donation due to sepsis. . 23:33 Reassessment: service singed for ptNataliia kay Vital Signs: 16:17 BP 101 / 76; Pulse 65; Resp 18; Pulse Ox 95% on 30% BiPAP; ph 17:21 BP 75 / 62; Pulse 71; Resp 20; Pulse Ox 100% on BiPAP; aj1 17:30 Temp 88.4(R); ss 18:00 BP 70 / 59; Pulse 60; Resp 23; Pulse Ox 100% on BiPAP; aj1 18:24 BP 97 / 73; Pulse 63; Resp 21; Pulse Ox 100% on BiPAP; aj1 18:30 BP 86 / 58; Pulse 77; Resp 25; Pulse Ox 100% on BiPAP; aj1 18:40 BP 85 / 63; Pulse 71; Resp 21; Pulse Ox 100% on BiPAP; aj1 18:57 BP 72 / 29; Pulse 61; Resp 15; Temp 88.1(C); Pulse Ox 100% on BiPAP; aj1 19:10 BP 84 / 57; Pulse 62; Resp 20; Pulse Ox 100% on BiPAP; aj1 19:20 BP 106 / 89; Pulse 75; Resp 23; Pulse Ox 100% on BiPAP; aj1 19:30 BP 115 / 71; Pulse 60; Resp 17; Pulse Ox 100% on BiPAP; aj1 19:30 Temp 87.9(R); aj1 19:45 BP 117 / 73; Pulse 60; Resp 18; Pulse Ox 100% on BiPAP; aj1 20:00 BP 96 / 85; Pulse 60; Resp 18; Temp 89.9(C); Pulse Ox 100% on BiPAP; aj1 20:15 BP 95 / 60; Pulse 60; Resp 20; Pulse Ox 100% on BiPAP; aj1 20:30 BP 106 / 92; Pulse 60; Resp 19; Temp 92.2(C); Pulse Ox 100% on BiPAP; aj1 Surya Coma Score: 17:02 Eye Response: to voice(3). Verbal Response: incomprehensible(2). Motor Response: jr8 withdraws from pain(4). Total: 9. ED Course: 15:57 Patient arrived in ED. rb1 16:11 EKG done, by geotechnical field technician. reviewed by Mesfin Pinon MD. 3 16:17 Triage completed. ph 16:18 Junaid Landeros PA is PHCP. jr8 16:18 Mesfin Pinon MD is Attending Physician. jr8 16:23 Faye Quinn, SHAYNE is Primary Nurse. ph 16:23 Arm band placed on. ph 16:45 Inserted saline lock: 22 gauge in left upper arm, using aseptic technique. ph 16:45 Patient has correct armband on for positive identification. Placed in gown. Bed in low aj1 position. radiation monitor on. Pulse ox on. NIBP on. Warm blanket given. 17:03 XRAY Chest (1 view) In Process Unspecified. EDMS 17:03 Inserted saline lock: 24 gauge in right forearm, using aseptic technique. pc1 18:00 Singh cath inserted, using sterile technique, 16 Fr., by mt, balloon inflated, returned aj1 clear yellow urine. 18:19 Assisted provider with central line placement. Set up central line tray. Triple lumen aj1 line placed in right femoral. Line placed by Junaid CHRISTENSEN Placement verified by blood return, CVP readin . Dressed with Tegaderm, Patient tolerated well. Patient \\T\\ family education about procedure, CLABSI prevention and S/S of infection? Yes. Time-out/Briefing performed prior to start of procedure? Yes. Was handwashing/sanitizing done immediately prior to procedure? Yes. Was patient positioned to in a way to prevent air embolism? Yes. Was procedure site sterilized? Yes, with chlorhexidine. Was the site allowed to dry? Yes. Was local anesthetic and/or sedation utilized? Yes. During the procedure, did the Practitioner(s) maintain a sterile field? Yes. Were unused ports clamped during insertion? Yes. Was a 2nd qualified MD obtained after 3 unsuccessful insertion attempts? N/A. Was blood aspirated from each lumen? Yes. After the procedure, did the Practitioner(s) clean the site and apply a sterile dressing? Yes. 19:58 Radiology exam delayed due to PT IS UNABLE TO COME DOWN TO CT AT THIS TIME; DELISA TO [facility] CALL WHEN RT IS HERE AND PT IS READY TO COME TO CT. 20:16 Josephine Olivia MD is Hospitalizing Provider. jr8 20:[address] via stretcher. em2 20:36 CT completed. Patient tolerated procedure well. em2 20:43 family notified to come visit patient due to a change in condition. mw2 21:09 Junaid Landeros PA is Pronouncing Provider. jr8 Administered Medications: 16:32 Not Given (Physician Discretion): Lasix 40 mg IVP once jr8 18:30 Drug: Rocephin 1 grams Route: IV; Rate: calculated rate; Site: right femoral; aj1 18:35 Follow up: IV Status: Completed infusion; IV Intake: 10ml aj1 18:35 Drug: Zithromax 500 mg Route: IVPB; Infused Over: 1 hrs; Site: right femoral; aj1 19:35 Follow up: IV Status: Completed infusion; IV Intake: 250ml aj1 18:39 Drug: Levophed (4 mg/250 mL D5W 4 mcg/min {Note: BP 86/56 HR 72.} Route: IV; Rate: aj1 calculated rate; Site: right femoral; 20:45 Follow up: IV Status: Completed infusion; pt aj1 19:00 Drug: NS 0.9% 1000 ml Route: IV; Rate: 1000 ml; Site: right femoral; aj1 20:00 Follow up: IV Status: Completed infusion; IV Intake: 1000ml aj1 20:00 Drug: NS 0.9% 1000 ml Route: IV; Rate: 100 ml/hr; Site: right femoral; aj1 20:45 Follow up: IV Status: Completed infusion; IV Intake: 60ml ; pt aj1 21:47 Not Given (Patient ): Lasix 40 mg IVP once aj1 21:48 Not Given (Patient ): Magnesium Sulfate 2 grams IVPB once over 2 hrs aj1 Intake: 18:35 IV: 10ml; Total: 10ml. aj1 19:35 IV: 250ml; Total: 260ml. aj1 20:00 IV: 1000ml; Total: 1260ml. aj1 20:45 IV: 60ml; Total: 1320ml. aj1 Outcome: 20:17 Decision to Hospitalize by Provider. jr8 22:32 Patient : Time of 20:45 Pronounced by Junaid CHRISTENSEN aj1 22:32 Patient : 22:32 Condition: 23:36 Patient left the ED. jd3 Signatures: Dispatcher [employer] EDAleida Gleason, RN RN aj1 Roopa Stephenson, RN Junaid Hernandez PA PA jr8 Gaston, Mahin em2 Faye Quinn RN RN Wilfredo, Kassi, RN RN rb1 Whitmore, Dasia 2 Jignesh Barba RN RN jd3 [place], MariahAme 2 Feldman, Eduarda sm3 [place], Marbin pc1 Corrections: (The following items were deleted from the chart) 21:48 20:00 Reassessment: Notified FERMIN Shah of patient's current vital signs. Order aj1 received to give 2nd liter on NS at 75cc/hr, continue warmed fluids and warming blanket, continue Levophed at present rate. Order received to go ahead and transport patient to CT aj1 21:58 16:45 GI: Abdomen is round obese, noted to have ascites, Abd is soft X 4 quads aj1 aj1 22:02 17:30 : Singh in place to gravity drainage aj1 aj1 02/04 10:21 03 20:43 Reassessment: Upon moving patient out of CT scan RR is 32, O2 sat reads at aj1 95%, but patient appears distress, patient's face began turning red, patient was moved onto stretcher and transported back to CT, during transport patient became cyanotic, respirations became agonal, and O2 sat would no longer register. FERMIN Shah and Dr. Cavazos at bedside. Patient is DNR and DNI per family request. aj1
--- NOTE | 2019-02-03 20:18 | EDPHYS ---
Physician Documentation [facility] Name: Sally Suárez Age: 88 yrs Sex: Female : 1930 Arrival Date: 02/03/2019 Time: 15:57 Bed 4 Private MD: ED Physician Mesfin Pinon HPI: 02/03 17:02 This 88 yrs old Female presents to ER via EMS with complaints of Shortness of jr8 breath. 17:02 The patient has shortness of breath at rest. Onset: The symptoms/episode began/occurred jr8 at an unknown time. Duration: The symptoms are continuous. The patient's shortness of breath has no apparent modifying factors. Associated signs and symptoms: The patient has no apparent associated signs or symptoms. Severity of symptoms: At their worst the symptoms were moderate in the emergency department the symptoms are unchanged. It is unknown whether or not the patient has had similar symptoms in the past. It is unknown whether or not the patient has recently seen a physician. Patient came from [place] after EMS was called out for shortness of breath. Patient was 90% RA. Patient non verbal which is baseline . Historical: - Allergies: 16:00 Allopurinol; rb1 16:00 Ciprofloxacin; rb1 16:00 Darvon; rb1 16:00 Demerol; rb1 16:00 HYDRALAZINE; rb1 16:00 Hydrochlorothiazide; rb1 16:00 Levaquin; rb1 16:00 PENICILLINS; rb1 16:00 reserpine; rb1 - Home Meds: 16:00 Metoprolol Tartrate 12.5 MG Oral 2 times per day [Active]; ranitidine 10 mg Oral 2 rb1 times per day [Active]; valproic acid (as sodium salt) 250 mg/5 mL Oral soln 5 mL twice a day [Active]; acetaminophen-codeine 300-30 mg Oral tab 1 tab every 6 hours [Active]; Aricept 10 mg Oral tab 1 tab twice a day [Active]; levothyroxine 100 mcg tab 1 tab once daily [Active]; Uloric 40 mg Oral tab 1 tab once daily [Active]; apixaban 2.5 mg Oral 1 tab twice a day [Active]; escitalopram oxalate 20 mg Oral tab 1 tab nightly [Active]; atorvastatin 20 mg Oral tab 1 tab nightly [Active]; cyclosporine 0.05 % ophthalmic 1 mL every 12 hours for in both eyes [Active]; tramadol 50 mg Oral tab 1 tab q6hrs prn [Active]; nystatin Powder [Active]; - PMHx: 16:00 "chronic kidney disease"; "cognitive communication deficit"; "heart failure"; Anemia; rb1 Anxiety; Atrial Fib; CHF; Dementia; Depression; DYSPHAGIA; GERD; Hyperlipidemia; Hypertension; Hypothyroidism; UTI; Gout; Hallucinations; hypercalcemia; Major Depressive Disorder; Pneumonia; - PSHx: 16:00 G-Tube; Pacemaker; rb1 - Immunization history:: Adult Immunizations unknown. - Social history:: Smoking status: unknown. - Ebola Screening: : Patient negative for fever greater than or equal to 101.5 degrees Fahrenheit, and additional compatible Ebola Virus Disease symptoms. ROS: 17:02 Unable to obtain ROS due to altered mental status, baseline dementia. jr8 Exam: 16:11 ECG was reviewed by the Attending Physician. kdr 17:02 Eyes: Pupils equal round and reactive to light, extra-ocular motions intact. Lids and jr8 lashes normal. Conjunctiva and sclera are non-icteric and not injected. Cornea within normal limits. Periorbital areas with no swelling, redness, or edema. ENT: Oropharynx with no redness, swelling, or masses, exudates, or evidence of obstruction, uvula midline. Mucous membranes moist. Neck: Trachea midline, no thyromegaly or masses palpated, and no cervical lymphadenopathy. Supple, full range of motion 17:02 Skin: Warm, dry with normal turgor. Normal color with no rashes, no lesions, and no evidence of cellulitis. MS/ Extremity: Pulses equal, no cyanosis. Neurovascular intact. Full, normal range of motion. 17:02 Cardiovascular: Rate: normal, Rhythm: regular, Pulses: Pulses are 2+ in right radial artery and left radial artery. Heart sounds: normal, normal S1and S2, no S3 or S4, no murmur, no rub, no gallop, Edema: 3+ edema to level of right forearm, right wrist, right hand, waist, pubic area, left upper thigh, left lower thigh, left knee, left midcalf, left ankle, left foot, left toes, left forearm, left wrist, left hand, right upper thigh, right lower thigh, right knee, right midcalf, right ankle, right foot and right toes. 17:02 Respiratory: the patient does not display signs of respiratory distress, Respirations: tachypnea, that is mild, Breath sounds: rales, that are moderate, are heard diffusely. 17:02 Neuro: Orientation: Not oriented to person, place, time, situation, Mentation: slow to respond, unable to follow commands, Memory: unable to test, Cranial nerves: unable to test, Cerebellar function: unable to test, Motor: moves all fours, seizure activity, is not displayed by the patient, Abnormal movements: there are no abnormal movements. Vital Signs: 16:17 BP 101 / 76; Pulse 65; Resp 18; Pulse Ox 95% on 30% BiPAP; ph 17:21 BP 75 / 62; Pulse 71; Resp 20; Pulse Ox 100% on BiPAP; aj1 17:30 Temp 88.4(R); ss 18:00 BP 70 / 59; Pulse 60; Resp 23; Pulse Ox 100% on BiPAP; aj1 18:24 BP 97 / 73; Pulse 63; Resp 21; Pulse Ox 100% on BiPAP; aj1 18:30 BP 86 / 58; Pulse 77; Resp 25; Pulse Ox 100% on BiPAP; aj1 18:40 BP 85 / 63; Pulse 71; Resp 21; Pulse Ox 100% on BiPAP; aj1 18:57 BP 72 / 29; Pulse 61; Resp 15; Temp 88.1(C); Pulse Ox 100% on BiPAP; aj1 19:10 BP 84 / 57; Pulse 62; Resp 20; Pulse Ox 100% on BiPAP; aj1 19:20 BP 106 / 89; Pulse 75; Resp 23; Pulse Ox 100% on BiPAP; aj1 19:30 BP 115 / 71; Pulse 60; Resp 17; Pulse Ox 100% on BiPAP; aj1 19:30 Temp 87.9(R); aj1 19:45 BP 117 / 73; Pulse 60; Resp 18; Pulse Ox 100% on BiPAP; aj1 20:00 BP 96 / 85; Pulse 60; Resp 18; Temp 89.9(C); Pulse Ox 100% on BiPAP; aj1 20:15 BP 95 / 60; Pulse 60; Resp 20; Pulse Ox 100% on BiPAP; aj1 20:30 BP 106 / 92; Pulse 60; Resp 19; Temp 92.2(C); Pulse Ox 100% on BiPAP; aj1 Surya Coma Score: 17:02 Eye Response: to voice(3). Verbal Response: incomprehensible(2). Motor Response: jr8 withdraws from pain(4). Total: 9. Procedures: 18:19 Central Line: the site was prepped with Betadine, in sterile fashion, a triple lumen jr8 catheter was inserted, in the right femoral vein, in 1 attempts. placement was verified, by blood return, the site was dressed with 4X4s, Tegaderm, foam tape, using sterile technique, the patient tolerated the procedure, well. MDM: 16:18 Patient medically screened. jr8 18:50 ED course: Discussed with son of patient that patient is very ill. Currently on Bipap jr8 and needing blood pressure support. Asked about code status. Stated that she is DNR and does not want her Intubated. Wants everything done up to that point . 20:13 Data reviewed: vital signs, nurses notes, lab test result(s), EKG, radiologic studies, jr8 CT scan, plain films. Data interpreted: Pulse oximetry: on room air is 100 %. Interpretation: normal. 20:16 Counseling: I had a detailed discussion with the patient and/or guardian regarding: the jr8 historical points, exam findings, and any diagnostic results supporting the discharge/admit diagnosis, lab results, radiology results, the need for further work-up and treatment in the hospital. Physician consultation: Josephine Olivia MD was called at 20:16, was contacted at 20:16, regarding admission, to the ICU, consult, patient's condition, and will see patient in ED. 21:07 ED course: Patient spontaneously stopped breathing. No cardiac activity noted upon jr8 palpation of pulses or with US at bedside. Patient pronounced at 20:45. Family contacted immediately . 02/03 16:27 Order name: Basic Metabolic Panel jr8 02/03 16:27 Order name: CBC with Diff 8 02/03 16:27 Order name: LFT's; Complete Time: 19:46 jr8 02/03 16:27 Order name: Magnesium; Complete Time: 19:46 jr8 02/03 16:27 Order name: NT PRO-BNP; Complete Time: 19:46 jr8 02/03 16:27 Order name: PT-INR; Complete Time: 18:13 [facility] 02/03 16:27 Order name: Troponin (emerg Dept Use Only); Complete Time: 19:46 [facility] 02/03 16:27 Order name: Basic Metabolic Panel; Complete Time: 19:46 [facility] 02/03 16:27 Order name: CBC with Automated Diff; Complete Time: 18:46 [facility] 02/03 16:32 Order name: ABG; Complete Time: 18:13 [facility] 02/03 16:32 Order name: Blood Culture Adult (2) [facility] 02/03 16:32 Order name: CPK; Complete Time: 19:18 [facility] 02/03 16:32 Order name: Lactate; Complete Time: 18:13 [facility] 02/03 16:32 Order name: Lipase; Complete Time: 19:18 [facility] 02/03 16:32 Order name: Procalcitonin; Complete Time: 19:18 [facility] 02/03 16:32 Order name: Ptt, Activated; Complete Time: 18:13 [facility] 02/03 16:32 Order name: Urine Microscopic Only; Complete Time: 19:46 [facility] 02/03 17:47 Order name: Manual Differential; Complete Time: 18:46 [facility] 02/03 18:29 Order name: Urine Dipstick--Ancillary (enter results); Complete Time: 20:33 02/03 19:56 Order name: Comprehensive Metabolic Panel [facility] 02/03 19:56 Order name: Creatine Phosphokinase [facility] 02/03 19:58 Order name: CBC with Automated Diff [facility] 02/03 16:27 Order name: XRAY Chest (1 view); Complete Time: 17:30 [facility] 02/03 16:27 Order name: EKG; Complete Time: 16:27 [facility] 02/03 16:27 Order name: Cardiac monitoring; Complete Time: 17:41 [facility] 02/03 16:27 Order name: EKG - Nurse/Tech; Complete Time: 17:41 [facility] 02/03 18:09 Order name: BIPAP 02/03 19:47 Order name: CT Chest, Abdomen, Pelvis - W/Contrast [facility] 02/03 19:58 Order name: NPO [facility] 02/03 19:58 Order name: Lactate [facility] 02/03 19:58 Order name: Lipid Profile [facility] 02/03 19:58 Order name: Magnesium [facility] 02/03 19:58 Order name: Phosphorus [facility] 02/03 19:58 Order name: NT PRO-BNP [facility] 02/03 19:58 Order name: T4 Free [facility] 02/03 19:58 Order name: Troponin I [facility] 02/03 19:58 Order name: Thyroid Stimulating Hormone [facility] 02/03 21:05 Order name: CT; Complete Time: 21:08 [facility] 02/03 16:27 Order name: IV Saline Lock; Complete Time: 17:41 [facility] 02/03 16:27 Order name: Labs collected and sent; Complete Time: 17:41 [facility] 02/03 16:27 Order name: O2 Per Protocol; Complete Time: 17:41 [facility] 02/03 16:27 Order name: O2 Sat Monitoring; Complete Time: 17:41 [facility] 02/03 16:27 Order name: Don; Complete Time: 18:46 [facility] 02/03 16:32 Order name: Accucheck; Complete Time: 18:46 [facility] 02/03 16:32 Order name: IV Saline Lock - Large Bore; Complete Time: 18:46 [facility] 02/03 16:32 Order name: Urine Dipstick-Ancillary (obtain specimen); Complete Time: 18:46 jr8 EC:11 Rate is 71 beats/min. Rhythm is regular, Paced with No ectopy. QRS interval is kdr prolonged. Clinical impression: Paced rhythm . Administered Medications: 16:32 Not Given (Physician Discretion): Lasix 40 mg IVP once jr8 18:30 Drug: Rocephin 1 grams Route: IV; Rate: calculated rate; Site: right femoral; aj1 18:35 Follow up: IV Status: Completed infusion; IV Intake: 10ml aj1 18:35 Drug: Zithromax 500 mg Route: IVPB; Infused Over: 1 hrs; Site: right femoral; aj1 19:35 Follow up: IV Status: Completed infusion; IV Intake: 250ml aj1 18:39 Drug: Levophed (4 mg/250 mL D5W 4 mcg/min {Note: BP 86/56 HR 72.} Route: IV; Rate: aj1 calculated rate; Site: right femoral; 20:45 Follow up: IV Status: Completed infusion; pt aj1 19:00 Drug: NS 0.9% 1000 ml Route: IV; Rate: 1000 ml; Site: right femoral; aj1 20:00 Follow up: IV Status: Completed infusion; IV Intake: 1000ml aj1 20:00 Drug: NS 0.9% 1000 ml Route: IV; Rate: 100 ml/hr; Site: right femoral; aj1 20:45 Follow up: IV Status: Completed infusion; IV Intake: 60ml ; pt aj1 21:47 Not Given (Patient ): Lasix 40 mg IVP once aj1 21:48 Not Given (Patient ): Magnesium Sulfate 2 grams IVPB once over 2 hrs aj1 Disposition: 22:52 Critical Care:. jr8 02/04 07:15 Co-signature as Attending Physician, Mesfin Pinon MD I agree with the assessment and kdr plan of care. Disposition: Patient pronounced on 02/03/19 20:45 by Junaid Landeros. Impression: Respiratory arrest, Septic Shock. - Released to Home. Critical care time excluding procedures: 02/03 22:52 Critical care time: Bedside Care: 20 minutes, Consultation: 10 minutes, Family jr8 Intervention: 15 minutes. Total time: 45 minutes Signatures: Dispatcher [employer] EDMS Aleida Parra RN RN aj1 Edie Zimmemran RN RN aa1 Mesfin Pinon MD MD [facility] Junaid Landeros PA PA jr8 Kassi Villalobos, RN RN rb1 Jignesh Barba RN RN jd3 Rory Navas mw2 Corrections: (The following items were deleted from the chart) 20:33 20:17 Hospitalization Ordered by Josephine Olivia MD for Inpatient Admission. Preliminary mw2 diagnosis is Septic Shock; Hypothermia. Bed requested for Intensive Care Unit. Status is Inpatient Admission. Condition is Fair. Problem is new. Symptoms have improved. UTI on Admission? No. jr8 20:48 20:33 02/03/2019 20:17 Hospitalization Ordered by Josephine Olivia MD for Inpatient aa1 Admission. Preliminary diagnosis is Septic Shock; Hypothermia. Bed requested for Intensive Care Unit. Status is Inpatient Admission. Condition is Fair. Problem is new. Symptoms have improved. UTI on Admission? No. mw2 21:09 20:48 02/03/2019 20:17 Hospitalization Ordered by Josephine Olivia MD for Inpatient jr8 Admission. Preliminary diagnosis is Septic Shock; Hypothermia. Bed requested for Intensive Care Unit. Status is Inpatient Admission. Condition is Fair. Problem is new. Symptoms have improved. UTI on Admission? No. aa1 23:36 21:10 02/03/2019 21:10 Patient pronounced on 02/03/2019 at 20:45 by Junaid Landeros. jd3 Impression: Respiratory arrest; Septic Shock. Released to Home. jr8
[2019-02-03 20:29] LABS: Urine Blood 1+ (NEG); Urine Glucose TRACE (NEG); Urine Protein TRACE (NEG); Urine Specific Gravity 1.015 (1.005-1.030); Urine pH 5.5 (5.0-7.0)
--- NOTE | 2019-02-03 21:03 | RAD REPORT ---
EXAM DESCRIPTION: CT - Chest Abdomen Pelvis W Cont - 02/03/2019 8:38 pm CLINICAL HISTORY: Elevated white blood cell count, abdominal pain and tenderness, respiratory distre ss, history of chronic renal disease, heart failure and anemia COMPARISON: Portable chest same date TECHNIQUE: Following dynamic enhancement using 100 milliliters nonionic IV contrast, axial imaging o f the chest, abdomen and pelvis was performed. Biphasic technique was utilized through the abdomen. No oral contrast. All CT scans are performed using dose optimization technique as appropriate and may include automated exposure control or mA/KV adjustment according to patient size. FINDINGS: Small pleural effusion is seen layering along the posterior left hemithorax. Partial atele ctasis seen in the left lower lobe and lingula of the left upper lobe. Motion degradation limits pare nchymal assessment. No left-sided mass or consolidation. Significant right hemidiaphragm elevation is present. There is small to moderate layering right pleural effusion. Right lower lobe atelectasis is present. An acute pneumonia is potentially masked within the atelectatic lung. There is mucous plugg ing or debris in the bronchus intermedius. This would be a source for the atelectasis. No pneumothorax. No pleural based mass. No pericardial thickening or effusion. No significant aortic or pulmonary arterial tree finding. Mediastinal and hilar regions show no mass or abnormal lymphaden opathy. No chest wall mass or axillary lymphadenopathy. The liver, spleen and pancreas show no suspicious findings. Cholecystectomy clips are present. No yara iary tree dilatation. Renal function is symmetric but delayed over what is typically seen. Patient ham teran has diminished cardiac function or abnormal renal function. No pyelonephritis or suspicious mass . Benign cyst present lower pole left kidney. Urinary bladder is fully contracted around a Don cath eter. No adrenal abnormalities. Moderate stool volume distends the rectum. Colon is tortuous and redundant. No dilated colon or acute colon process seen. Motion artifact limits bowel assessment. No dilated small bowel and no gastric a cute finding. Minimal amount of ascites is present adjacent to the liver capsule and in the pelvic floor. No uterin e abnormality. Ovaries are absent or atrophic. No adnexal mass. Disc and bony degenerative changes are present. No acute vascular finding. IMPRESSION: Small left-side and small to moderate right-sided pleural effusion with bilateral lower lobe atelectasis. Mucous plugging or inflammatory debris in the bronchus intermedius. No focal consolidation or lung parenchymal mass. Motion limits assessment of interstitial edema or in terstitial infiltrate. No acute findings of the abdomen or pelvis. Small amount of ascites is present. Full findings are det wallace in the body of the report.
--- NOTE | 2019-02-04 06:16 | EKG ---
Test Date: 2019-02-03 Test Time: 16:06:00 Crane Hoist Or Lift Operator: SARMAD MEASUREMENT RESULTS: Intervals: Rate: 71 AK: QRSD: 164 QT: 480 QTc: 521 [place]: P: AK: QRS: -77 T: 103 INTERPRETIVE STATEMENTS: Atrial-Ventricular Dual-Paced rhythm Abnormal ECG Compared to ECG 09/26/2011 08:28:26 Ventricular premature complex(es) no longer present PAC s and PVC s are no longer present Electronically Signed On 02-04-19 06:16:07 CDT by Andrea De Jesus
[2019-02-04] MEDS ORDERED: ENOXAPARIN 40 MG/0.4 ML SQ SCH (09:00)
== END 2019-02-03 23:36 | disposition expired ==
LOC: ER 15:55 → ERHOLD 20:04 → UNDOADMIN 20:04 → ER 23:36
PROC: 06HY33Z Insertion of Infusion Device into Lower Vein, Percutaneous Approach (ICD-10-PCS; principal; 2019-02-03)
DX: R09.2 Respiratory arrest (principal); R65.21 Severe sepsis with septic shock; I13.0 Hypertensive heart and chronic kidney disease with heart failure and stage 1 through stage 4 chronic kidney disease, or unspecified chronic kidney disease; N18.9 Chronic kidney disease, unspecified; I50.9 Heart failure, unspecified; E03.9 Hypothyroidism, unspecified; E78.5 Hyperlipidemia, unspecified; M10.9 Gout, unspecified; I48.91 Unspecified atrial fibrillation; Z88.1 Allergy status to other antibiotic agents; Z88.5 Allergy status to narcotic agent; Z88.0 Allergy status to penicillin; Z88.8 Allergy status to other drugs, medicaments and biological substances
CPT/HCPCS: 96365; 93005; 87040 ×2; 85025; 80048; 36415; 83735; 82550; 85610; 80076; 83605; 85730; 84484; 83690; 84145; 83880; 71260; 74177; 71045; 82805; 94660; 51702; 96375; 99291; 99292; 36556; Q9967; J0456; J0696; J7030; 81003; 81015